=== PATIENT | male | born 1945 | race Caucasian/White ===

== ENCOUNTER 2020-07-14 10:38 | Inpatient (IN) | payer MEDICARE ==
[~2020-07-14] VITALS: Ht 182.9 cm; Wt 92.5 kg
[2020-07-14] MEDS ORDERED: KETOROLAC TROMETHAMINE INJ 60 MG/2 ML VIAL IM ONE (11:00)
--- NOTE | 2020-07-14 11:00 | NUR ---
PT BIBA FROM HOME C/O LLE PAIN AND TESTICULAR PAIN X 3 DAYS. PT AAOX4, VSS, RESPIRATIONS EVEN AND UNLABORED ON RA W/ NAD NOTED. PT CONNECTED TO THE MONITOR AND POX
--- NOTE | 2020-07-14 11:00 | NUR ---
Chelita you in [facility] - 07/14/20 at 1215 by CHRIS RELIGIOUS HEALER JANETT
[2020-07-14] MEDS ORDERED: KETOROLAC TROMETHAMINE INJ 30 MG/ML VIAL ONE (11:01)
--- NOTE | 2020-07-14 11:03 | NUR ---
ASSUMED CARE FOR THIS PT
--- NOTE | 2020-07-14 11:24 | NUR ---
ATTEMPTED TO CALL FOR FILLING MACHINE TENDER. LEFT VOICEMAIL
--- NOTE | 2020-07-14 11:30 | NUR ---
SECRETARY RECEPTIONIST PAGED
--- NOTE | 2020-07-14 11:30 | NUR ---
ATTEMPTED TO CALL BACK AGAIN. LEFT A VOICEMAIL
--- NOTE | 2020-07-14 12:17 | NUR ---
OPAL, CRISIS TEAM LOSS PREVENTION INVESTIGATOR PAGED
--- NOTE | 2020-07-14 12:38 | NUR ---
OPAL, CRISIS TEAM PARKS RECREATION DIRECTOR AT BEDSIDE
--- NOTE | 2020-07-14 12:53 | NUR ---
URINE COLLECTED AND SENT TO LAB
--- NOTE | 2020-07-14 12:53 | NUR ---
This SW filed an Adult Protective Service report reference number [id number] for neglect of family and self-neglect. Patient reports that he cannot take care of himself and his who is disabled. Patient stated that he cannot walk well and that his is deaf. Patient reported that when his falls down, he is not strong enough to pick her up. Patient cannot recall daughter or son's contact information stating "my knows but she's deaf". This SW to remain available for all needs regarding this patient.
--- NOTE | 2020-07-14 12:53 | NUR ---
EKG AT BEDSIDE
[2020-07-14 13:04] LABS: BASOPHILS % (AUTO) 0.7 % (0.0-2.0); EOSINOPHILS % (AUTO) 3.6 % (0.0-6.0); HEMATOCRIT 46 % (39-51); HEMOGLOBIN 15.1 g/dL (13.5-17.5); LYMPHOCYTES # (AUTO) 1.8 /CMM (0.8-4.8); LYMPHOCYTES % (AUTO) 26.3 % (20.0-44.0); MEAN CORPUSCULAR HGB CONC 33 g/dl (31.0-36.0); MEAN CORPUSCULAR VOLUME 96 fL (80-96); MONOCYTES # (AUTO) 0.5 /CMM (0.1-1.30); MONOCYTES % (AUTO) 7.6 % (2.0-12.0); NEUTROPHILS # (AUTO) 4.1 /CMM (1.8-8.9); NEUTROPHILS % (AUTO) 61.8 % (43.0-81.0); PLATELET COUNT (AUTO) 240 /CMM (150-450); RED BLOOD CELL COUNT(AUTO) 4.84 MIL/uL (4.5-6.0); WHITE BLOOD COUNT (AUTO) 6.7 K/uL (4.3-11.0)
--- NOTE | 2020-07-14 13:09 | NUR ---
CALLED LAB FOR COVID SWAB
[2020-07-14 13:10] LABS: APPEARANCE,URINE Clear (CLEAR); BILIRUBIN,URINE Negative (NEGATIVE); BLOOD, URINE Negative Ery/uL (NEGATIVE); COLOR,URINE Yellow (YELLOW); KETONES,URINE Negative (NEGATIVE); LEUKOCYTE ESTERASE ,URINE Negative (NEGATIVE); NITRITE, URINE Negative (NEGATIVE); PH,URINE 6.5 (5.0-8.0); PROTEIN,URINE Negative (NEGATIVE); UGLUCOSE 100 MG/DL mg/dL (NEGATIVE); UROBILINOGEN,URINE 0.2 EU/dL (0.2)
--- NOTE | 2020-07-14 13:10 | NUR ---
Chelita you in [facility] - 07/14/20 at 1315 by CHRIS LAB CALLED FOR TIM SWAB
[2020-07-14 13:18] LABS: ALANINE AMINOTRANSFERASE 40 U/L (12-78); ALBUMIN 3.5 g/dL (3.4-5.0); ALCOHOL, BLOOD < 3 mg/dL (0-0); ALKALINE PHOSPHATASE 71 U/L (46-116); ASPARTATE AMINOTRANSFERASE 16 U/L (15-37); BILIRUBIN,DIRECT 0.1 mg/dL (0.0-0.2); BILIRUBIN,TOTAL 0.6 mg/dL (0.2-1.0); CALCIUM, SERUM 9.2 mg/dL (8.5-10.1); CARBON DIOXIDE 28 mmol/L (21-32); CHLORIDE 103 mmol/L (98-107); CREATININE 1.1 mg/dL (0.6-1.3); GLUCOSE 172 mg/dL (74-106); POTASSIUM 4.5 mmol/L (3.5-5.1); SODIUM SERUM 138 mmol/L (136-145); TOTAL PROTEIN, SERUM 7.1 g/dL (6.4-8.2); UREA NITROGEN, BLOOD 13 mg/dL (7-18)
[2020-07-14 13:20] LABS: SALICYLATE 0.3 mg/dL (2.8-20.0)
[2020-07-14 13:21] LABS: ACETAMINOPHEN 0 ug/ml (10-30)
--- NOTE | 2020-07-14 13:38 | NUR ---
COVID SWAB COLLECTED AND SENT TO LAB
--- NOTE | 2020-07-14 14:08 | NUR ---
MOVE SHEET TURNED IN AND CALLED FOR GPS BED.
--- NOTE | 2020-07-14 14:36 | NUR ---
GOT BED 216-B
--- NOTE | 2020-07-14 15:14 | NUR ---
COVID NEGATIVE PER LAB
--- NOTE | 2020-07-14 15:19 | NUR ---
REPORT GIVEN TO KAYLEEN ESCOBEDO FOR SONDRA
--- NOTE | 2020-07-14 15:51 | NUR ---
PT TRANSFERRED TO ROOM IN STABLE CONDITION
--- NOTE | 2020-07-14 16:18 | NUR ---
GPS RN Note: Admission Patient is a 75 year old male brought in to the hospital by paramedics from home. Patient is admitted on a 5150 hold for gravely disabled. Patient came in to the ER c/o severe pain in LLE. According to the hold patient was tearful and reporting hopelessness and stating that he could not take care of himself. Patient admitted to a history of depression and PTSD. According to the hold the patient was groaning and stating repeatedly, "I can't take care of myself. I can't sleep and I can't shower, cook and I can't deal with the problems in my life". Hospital was unable to contact family and SW filed APS report for neglect and self-neglect. Upon face to face assessment patient is groaning, tearful, stating he is in pain. Patient is saying "I can hear my calling for me". When asked directly if he is suicidal, patient said "yes". Patient presents as worried and anxious. Patient states he is nonambulatory. PT eval ordered. Patient came in with no belongings. Patient is in bed in low position with 2 side rails up for safety and bed alarm on. MD informed of admit with admitting orders given. Patient's rights handbook given and guide to prescriptions.
[2020-07-14] MEDS ORDERED: MAGNESIUM HYDROXIDE 30 ML UDC PO PRN (16:30)
[2020-07-14] MEDS ORDERED: LORAZEPAM 0.5 MG TABLET PO PRN (16:30)
[2020-07-14] MEDS ORDERED: MAG HYDROX/AL HYDROX/SIMETH 30 ML UDC PO PRN (16:30)
[2020-07-14] MEDS ORDERED: BLOOD SUGAR DIAGNOSTIC 1 EACH STRIP IN ONE (16:30)
[2020-07-14] MEDS ORDERED: CARI350T PO (17:43)
[2020-07-14] MEDS ORDERED: HYDR-4384 PO (17:43)
--- NOTE | 2020-07-14 18:54 | NUR ---
GPS RN Note: Med Recon Dr Mirza notified for med recon
--- NOTE | 2020-07-14 19:48 | NUR ---
GPS RN NOTE, PATIENT HAS A COMPLAINT OF LOWER BACK PAIN AND BILATERAL LOWER EXTREMITY PAIN AT 6 OUT 10 ON THE PAIN SCALE REQUESTING MORPHINE AT THIS TIME. PATIENT VITAL SIGNS ARE STABLE. PAGED [facility] AND INFORMED DANIELLE BACH DNP OF MY FINDINGS. DANIELLE BACH DNP ORDERED TO GIVE MORPHINE SULFATE 2MG IM ONCE ONE TIME. PATIENT HAS A ALLERGIES TO CODEINE BUT DANIELLE BACH DNP SAID TO OVERRIDE THE ALLERGIES AND GIVE MORPHINE SULFATE. ALL ORDERS NOTED AND CARRIED OUT. WILL CONTINUE TO MONITOR THIS PATIENT.
[2020-07-14 19:59] VITALS: BP 117/82
[2020-07-14] MEDS ORDERED: MORPHINE SULFATE INJ 2 MG/ML DISP.SYRIN IM ONE (20:00)
[2020-07-14] MEDS ORDERED: MORPHINE SULFATE INJ 2 MG/ML DISP.SYRIN ONE (20:22)
--- NOTE | 2020-07-14 20:39 | NUR ---
GPS RN NOTES: PATIENT COMPLAINED OF PAIN ON BOTH LOWER EXTREMITIES AT THE START OF THE SHIFT. VEGETABLE PREPARER NENA CALLED DANIELLE BACH NP OF THE [facility] FOR ANY MEDICATION ORDERS. HE GAVE ORDERS FOR MORPHINE IM INJECTION. PATIENT HAS ALLERGIES TO CODEINE, SO VEGETABLE PREPARER AND LEAD HOUSEKEEPER ASKED PATIENT IF HE IS OKAY TAKING MORPHINE PER PATIENT "THAT IS WHAT I NEED, PLEASE" LEAD HOUSEKEEPER WAS ABLE TO OBTAIN THE MEDICATION FROM [facility] SINCE WE DON'T STOCK THE SAID MEDICATION HERE AT GPS. PHARMACY DID DELIVER THE MEDICATION TO THE UNIT, THEY WERE AWARE THAT LEAD HOUSEKEEPER WAS ABLE TO OBTAIN THE MEDICATION FROM [facility].
--- NOTE | 2020-07-14 22:33 | NUR ---
GPS RN NOTE RECEIVED REPORT ON PT FROM FELLOW NURSE, STATED PT WAS, CALM, COMPLIANT, RESTLESS DUE TO PAIN 9/10 ON BOTH LOWER EXTREMITIES, NURSE ADMINISTERED MORPHINE 2MG IM @ 2032, WHEN CHECKING ON PT HE WAS ASLEEP, NON LABORED BREATHING. ENVIRONMENTAL CHECK WAS DONE BED IN LOCKED AND LOWEST POSITION, BED ALARM ON, WILL CONTINUE TO MONITOR Q15MIN FOR SAFETY AND BEHAVIOR.
--- NOTE | 2020-07-14 23:00 | NUR ---
GPS RN NOTE, PATIENT NEEDS A MEDICATION RECONCILIATION. PAGED [facility] AND INFORMED DANIELLE KNAPP DNP OF MY FINDINGS. DANIELLE KNAPP DNP STATED, " I WILL REVIEW THE MEDICATION SOON I CAN ". WILL CONTINUE TO MONITOR THIS PATIENT WITH THE HELP OF FATIMAH.
--- NOTE | 2020-07-15 05:54 | NUR ---
GPS RN NOTE: MED RECON & PAIN SPOKE TO DR. BACH REGARDING MED RECON AND STATED "PASS IT ON TO MORNING SHIFT". WILL CONTINUE TO MONITOR Q15 MIN FOR SAFETY AND BEHAVIOR.
[2020-07-15] MEDS ORDERED: GABAPENTIN 300 MG CAPSULE PO SCH (06:00)
--- NOTE | 2020-07-15 06:02 | NUR ---
GPS RN NOTE: PAIN & SKIN ASSESSMENT REFUSAL INFORMED THE DR THAT THE PT WAS HAVING LOWER EXTREMITY PAIN, THE DR ORDERED GABAPENTIN 300 MG PO ONCE, ADMINISTERED @0558. ASKED PT IF WE WERE ABLE TO DO A SKIN ASSESSMENT HE STATED "NO M IN TOO MUCH PAIN I DONT WANT IT DONE". WILL CONTINUE TO MONITOR Q15 MIN FOR SAFETY AND BEHAVIOR
[2020-07-15 06:33] LABS: CHOLESTEROL 268 mg/dL (<200); HDL CHOLESTEROL 35 mg/dL (40-60); LDL 198 mg/dL (0-99); TRIGLYCERIDES 263 mg/dL (30-150)
[2020-07-15 06:35] LABS: ALBUMIN 3.2 g/dL (3.4-5.0); BILIRUBIN,TOTAL 0.5 mg/dL (0.2-1.0); CALCIUM, SERUM 8.9 mg/dL (8.5-10.1); CREATININE 1.1 mg/dL (0.6-1.3); POTASSIUM 4.3 mmol/L (3.5-5.1)
[2020-07-15 08:00] VITALS: BP 151/87
--- NOTE | 2020-07-15 08:02 | NUR ---
RN NOTES PATIENT RECEIVED IN ROOM SLEEPING. AWAKEN BY NAME AND LIGHT TOUCH, ALERT AND ORIENTED X 3. ON ROOM AIR WITH NO SIGNS OF RESPIRATORY DISTRESS NOTED, WITH NON-LABORED BREATHING. PATIENT PRESENTS WITH NO PAIN OR DISCOMFORT AT THIS TIME. SAFETY PRECAUTIONS IMPLEMENTED WITH BED LOCKED, BED IN THE LOWEST POSITION, BILATERAL SIDE RAILS UP, AND WILL CONTINUE TO MONITOR PATIENT.
--- NOTE | 2020-07-15 11:15 | NUR ---
RN NOTES INFORMED AND DR. SALAZAR MADE AWARE ABOUT MEDICATION RECON. AT THIS TIME WILL CONTINUE TO MONITOR PATIENT.
[2020-07-15] MEDS: ACETAMINOPHEN 325 MG TABLET PO PRN (13:32)
--- NOTE | 2020-07-15 13:32 | NUR ---
RN NOTES PATIENT COMPLAINING OF LEG PAIN AND GROIN PAIN, ADMINISTERED PRN TYLENOL ORDERED, PO 650mg, PROVIDED COMFORT MEASURES TO PATIENT AND WILL CONTINUE TO MONITOR PATIENT.
--- NOTE | 2020-07-15 14:25 | NUR ---
Family Contact: SW called the pts , Gilbert ([phone]), but the line was disconnected so the SW was unable to make contact at this time.
--- NOTE | 2020-07-15 14:35 | NUR ---
Family Contact: SW called an alternative number for the , Ham ([phone]), and left a voicemail stating that the SW would like to discuss pts treatment.
--- NOTE | 2020-07-15 14:39 | NUR ---
Apartment Contact: SW called [facility] ([phone]) and spoke to CJ about receiving the phone number for the pts daughter, Lindsey, who lives in the same complex. He stated that he is off site and once he is back he can provide that information. MIGUELANGEL stated that she would call back around 4.
[2020-07-15] MEDS ORDERED: CARISOPRODOL 350 MG TABLET PO PRN (15:30)
--- NOTE | 2020-07-15 15:41 | NUR ---
Initial Discharge Plan: Pt currently resides in his home located at [address] [place] [address]; ([phone]). Per pt, he would like to return to his home. SW will work with the pt and the MD regarding appropriate discharge planning. SW will form a safe and proper discharge.
--- NOTE | 2020-07-15 15:42 | NUR ---
RN NOTES PAGED DR SALAZAR FOR PAIN MEDICATION TO VERIFY NORCO DUE TO PHARMACY CALLING STATING PATIENT ALLERGIC TO CODEINE. ALSO PAGED FOR SLIDING SCALE DUE TO PLAN OF CARE NOTES BUT NO ORDERS IN PLACE. AWAITING FOR RESPONSE AT THIS TIME. WILL CONTINUE TO MONITOR PATIENT.
[2020-07-15 16:00] VITALS: BP 122/64
--- NOTE | 2020-07-15 16:27 | NUR ---
Family Contact: MIGUELANGEL called Yue ([phone]), pts daughter, and left a voicemail stating that she would like to speak to her regarding the pts treatment plan.
[2020-07-15] MEDS: HYDROCODONE/APAP 5/325MG TABLET PO PRN ×2 (16:45→23:30)
--- NOTE | 2020-07-15 17:45 | NUR ---
RN NOTES PATIENT MRSA RESULT CAME BACK POSITIVE. INFORMED DR. SAM. GANT MADE AWARE AND ORDERED PLACE FOR BACTROBAN OINT 2% BID Q12H. WILL CARRY OUT ORDERS, PLACE PATIENT IN CONTACT PRECAUTIONS AND CONTINUE TO MONITOR PATIENT.
[2020-07-15 20:00] VITALS: BP 150/80
[2020-07-15 20:11] VITALS: BP 150/80
[2020-07-15] MEDS: MUPIROCIN OINT 2% 22 GM TUBE NS SCH (21:17)
[2020-07-15] MEDS: ESCITALOPRAM OXALATE (10 MG) 10 MG TABLET PO SCH (21:51)
[2020-07-15 23:25] VITALS: BP 141/79
--- NOTE | 2020-07-15 23:31 | NUR ---
GPS PRN NOTE: PAIN PATIENT C/O RIGHT & LEFT LOWER EXTREMITY PAIN 05/20, NORCO 5/325 MG 1 TAB PO GIVEN, PATIENT STATED THAT NORCO WORKS FOR HIM & RELIEVES THE PAIN. WILL MONITOR CLOSELY FOR EFFECTIVENESS OF NORCO. V/S STABLE.
--- NOTE | 2020-07-16 00:15 | NUR ---
GPS RN NOTE PATIENT WAS NOTED WITH SMALL MULTIPLE SCRATCHES/ABRASIONS (DRYING) TO HIS RIGHT & LEFT LEG, BUT UNABLE TO ASSESS FULL BODY FOR SKIN ASSESSMENT DUE TO C/O PAIN & PATIENT REFUSED TO BE ASSESSED. PATIENT WAS RESTLESS & EASILY AGITATED DUE TO RIGHT & LEFT LEG PAIN. REFUSED PICTURES TO BE TAKEN WELL. PAIN MEDICINE WAS GIVEN & WILL CONTINUE TO MONITOR FOR EFFECTIVENESS OF THE PAIN MEDICINE. WILL KEEP THE PATIENT COMFORTABLE & SAFE.
[2020-07-16] MEDS: HYDROCODONE/APAP 5/325MG TABLET PO PRN ×3 (05:31→18:34)
--- NOTE | 2020-07-16 05:31 | NUR ---
GPS PRN NOTE: PAIN PATIENT C/O LEFT LEG PAIN 05/20, NORCO 5/325 MG 1 TAB PO GIVEN, PATIENT STATED THAT NORCO HELPED LAST TIME IT WAS GIVEN 6 HOURS AGO & RELIEVED THE PAIN. WILL MONITOR CLOSELY FOR EFFECTIVENESS OF NORCO. V/S STABLE 132/81, 78, 20, 97.5, 96%.
[2020-07-16 08:00] VITALS: BP 155/93
[2020-07-16] MEDS: MUPIROCIN OINT 2% 22 GM TUBE NS SCH ×2 (09:06→21:00)
--- NOTE | 2020-07-16 11:58 | NUR ---
RN NOTE: PAIN PT C/O 910 BILAT LOWER EXTREMITY PAIN AND SCROTAL PAIN. MEDICATED WITH NORCO PO PRN.
--- NOTE | 2020-07-16 13:00 | NUR ---
RN NOTE: PT REPORTS 2/10 BILAT LOWER EXTREMITY PAIN AFTER NORCO ADMINISTRATION
[2020-07-16 16:00] VITALS: BP 135/64
--- NOTE | 2020-07-16 18:35 | NUR ---
RN NOTE: PAIN PT C/O 9/10 BILAT LOWER LEG AND SCROTAL PAIN. MEDICATED WITH NORCO PO PRN
[2020-07-16 19:59] VITALS: BP 97/56
[2020-07-16] MEDS: ESCITALOPRAM OXALATE (10 MG) 10 MG TABLET PO SCH (21:31)
[2020-07-17] MEDS: HYDROCODONE/APAP 5/325MG TABLET PO PRN ×4 (03:15→22:57)
--- NOTE | 2020-07-17 03:19 | NUR ---
GPS RN NOTE: PAIN PT. C.O OF 10/10 PAIN IN BILATERAL LOWER LEG AND SCROTAL PAIN. ADMINISTERED NORCO5-325 PO PRN ORDERED. WILL CONTINUE TO MONITOR FOR SAFETY AND BEHAVIOR.
[2020-07-17 08:00] VITALS: BP 97/64
[2020-07-17] MEDS: MUPIROCIN OINT 2% 22 GM TUBE NS SCH ×2 (09:53→21:22)
--- NOTE | 2020-07-17 10:40 | NUR ---
RN NOTE: PAIN PT C/O 9/10 BILAT LOWER EXTREMITY AND SCROTAL PAIN. MEDICATED WITH NORCO PO PRN.
[2020-07-17] MEDS ORDERED: DEXTROSE 50%-WATER 50 ML DISP.SYRIN IV PRN (13:30)
[2020-07-17 16:00] VITALS: BP 100/59
[2020-07-17] MEDS: BLOOD SUGAR DIAGNOSTIC 1 EACH STRIP IN SCH ×2 (17:05→21:22)
[2020-07-17] MEDS ORDERED: BLOOD SUGAR DIAGNOSTIC 1 EACH STRIP IN SCH (17:30)
[2020-07-17] MEDS: METFORMIN 500 MG TABLET PO SCH (17:45)
--- NOTE | 2020-07-17 17:45 | NUR ---
RN NOTE: PAIN PT C/O 10 BILAT LOWER EXTREMITIY PAIN AND SCROTAL PAIN. MEDICATED WITH NORCO PO PRN.
[2020-07-17] MEDS: INSULIN REGULAR, HUMAN 100 UNIT/ML 3 ML VIAL SQ PRN ×2 (17:47→21:33)
[2020-07-17 20:00] VITALS: BP 156/69
[2020-07-17] MEDS: ESCITALOPRAM OXALATE (10 MG) 10 MG TABLET PO SCH (21:29)
--- NOTE | 2020-07-17 21:29 | NUR ---
GPS RN NOTE: MEDICATION REFUSAL PT. REFUSED SCHEDULED 2200 MEDICATION LEXAPRO 5 MG PO. STATES " I HAVE NIGHTMARES AFTER TAKING THAT MEDICATION." EXPLAINED RISKS AND BENEFITS. OFFERED 3 TIMES AND PT STILL REFUSED. WILL CONTINUE TO MONITOR FOR SAFETY AND BEHAVIOR
[2020-07-18] MEDS: ACETAMINOPHEN 325 MG TABLET PO PRN (02:20)
--- NOTE | 2020-07-18 02:20 | NUR ---
GPS RN NOTE: PAIN PT. C/O OF SCROTAL PAIN. ADMINISTERED TYLENOL 650 MG PO PRN ORDERED. WILL CONTINUE TO MONITOR OFR SAFETY AND BEHAVIOR.
[2020-07-18] MEDS: BLOOD SUGAR DIAGNOSTIC 1 EACH STRIP IN SCH ×4 (07:06→21:10)
[2020-07-18] MEDS: INSULIN REGULAR, HUMAN 100 UNIT/ML 3 ML VIAL SQ PRN ×4 (07:09→21:13)
[2020-07-18 08:00] VITALS: BP 105/55
[2020-07-18] MEDS: MUPIROCIN OINT 2% 22 GM TUBE NS SCH ×2 (08:43→21:10)
[2020-07-18] MEDS: METFORMIN 500 MG TABLET PO SCH ×2 (08:47→17:17)
[2020-07-18] MEDS: ASPIRIN 81 MG TAB.CHEW PO SCH (08:47)
[2020-07-18] MEDS: HYDROCODONE/APAP 5/325MG TABLET PO PRN ×3 (08:48→23:47)
--- NOTE | 2020-07-18 08:49 | NUR ---
RN NOTE: PAIN PT C/O 9/10 BILAT LOWER EXTREMITY PAIN AND SCROTAL PAIN. MEDICATED WITH NORCO PO PRN
[2020-07-18] MEDS: METOPROLOL TARTRATE 25 MG TABLET PO SCH (08:50)
--- NOTE | 2020-07-18 08:50 | NUR ---
RN NOTE: AM DOSE OF LOPRESSOR HELD DUE TO DECREASED BP. PT IS CURRENTLY ASYMPTOMATIC
[2020-07-18 16:00] VITALS: BP 100/57
--- NOTE | 2020-07-18 17:39 | NUR ---
RN NOTE: PAIN PT C/O /10 BILAT LOWER EXTREMITY PAIN AND SCROTAL PAIN. REQUESTING NORCO. NORCO PO PRN ADMINISTERED.
[2020-07-18 20:15] VITALS: BP 110/59
[2020-07-18] MEDS: TEMAZEPAM 7.5 MG CAPSULE PO PRN (21:19)
[2020-07-18] MEDS: ESCITALOPRAM OXALATE (10 MG) 10 MG TABLET PO SCH (22:00)
[2020-07-19] MEDS: HYDROCODONE/APAP 5/325MG TABLET PO PRN ×3 (05:27→20:00)
[2020-07-19] MEDS: INSULIN REGULAR, HUMAN 100 UNIT/ML 3 ML VIAL SQ PRN ×3 (07:19→18:02)
[2020-07-19 08:07] VITALS: BP 95/67
[2020-07-19] MEDS: METOPROLOL TARTRATE 25 MG TABLET PO SCH (08:34)
[2020-07-19] MEDS: LISINOPRIL (20MG) 20 MG TABLET PO SCH (08:34)
[2020-07-19] MEDS: BLOOD SUGAR DIAGNOSTIC 1 EACH STRIP IN SCH ×4 (08:35→21:36)
[2020-07-19] MEDS: ASPIRIN 81 MG TAB.CHEW PO SCH (09:40)
[2020-07-19] MEDS: METFORMIN 500 MG TABLET PO SCH ×2 (09:40→17:34)
[2020-07-19] MEDS: ESCITALOPRAM OXALATE (10 MG) 10 MG TABLET PO SCH (09:40)
--- NOTE | 2020-07-19 13:21 | NUR ---
GIVEN NORCO FOR LEG PAIN.
--- NOTE | 2020-07-19 13:40 | NUR ---
Family Contact: MIGUELANGEL called the pts son, Rasta Allan ([phone]), and informed him that the pt is being discharged back home the following day. He stated that he will come and sisal picker the pt around 1pm or will make sure another family member will sisal picker the pt at that time.
--- NOTE | 2020-07-19 14:51 | NUR ---
yolanda irvin alerted to pain in legs,babita.arterial and venous studies being done.
[2020-07-19 15:24] LABS: BASOPHILS # (AUTO) 0.1 /CMM (0.0-0.2); BASOPHILS % (AUTO) 1.2 % (0.0-2.0); EOSINOPHILS % (AUTO) 3.6 % (0.0-6.0); HEMATOCRIT 45 % (39-51); LYMPHOCYTES # (AUTO) 1.6 /CMM (0.8-4.8); LYMPHOCYTES % (AUTO) 24.5 % (20.0-44.0); MEAN CORPUSCULAR HGB CONC 33 g/dl (31.0-36.0); MEAN CORPUSCULAR VOLUME 94 fL (80-96); MONOCYTES # (AUTO) 0.6 /CMM (0.1-1.30); MONOCYTES % (AUTO) 9.1 % (2.0-12.0); NEUTROPHILS # (AUTO) 4.1 /CMM (1.8-8.9); NEUTROPHILS % (AUTO) 61.6 % (43.0-81.0); PLATELET COUNT (AUTO) 242 /CMM (150-450); RED BLOOD CELL COUNT(AUTO) 4.82 MIL/uL (4.5-6.0); WHITE BLOOD COUNT (AUTO) 6.6 K/uL (4.3-11.0)
[2020-07-19 15:38] LABS: CALCIUM, SERUM 8.9 mg/dL (8.5-10.1); POTASSIUM 4.3 mmol/L (3.5-5.1)
[2020-07-19 16:00] VITALS: BP 109/61
[2020-07-19] MEDS: MUPIROCIN OINT 2% 22 GM TUBE NS SCH ×2 (17:34→21:28)
--- NOTE | 2020-07-19 18:13 | NUR ---
given soma for rectal discomfort after having bm.
--- NOTE | 2020-07-19 20:06 | NUR ---
GPS RN NOTE: PAIN PT C/O OF LEG AND GROIN PAIN 06/20 REQUESTED NORCO, VITAL SIGNS STABLE, NON LABORED BREATHING NORMAL CHEST RECOIL AND EXPANSION. ADMIN PRN NORCO @ 2000, WILL REASSESS AND CONTINUE TO MONITOR Q15MIN FOR SAFETY AND BEHAVIOR.
[2020-07-20] MEDS: HYDROCODONE/APAP 10/325MG TABLET PO PRN ×2 (01:55→11:58)
--- NOTE | 2020-07-20 02:00 | NUR ---
GPS RN NOTE: PAIN PT WAS SHOUTING, YELLING, SCREAMING THAT HE WAS IN PAIN, HE STATED "THIS IS TERRIBLE, ITS 07/21 I CARE BARE THIS I NEED MY NORCO" PT RECEIVED PRN 1 NORCO 10-325 TABLET PRN TABLET @ 0155. WILL REASSESS AND CONTINUE TO MONITOR Q15 MIN FOR SAFETY AND BEHAVIOR.
[2020-07-20 03:29] VITALS: BP 101/57
[2020-07-20] MEDS: BLOOD SUGAR DIAGNOSTIC 1 EACH STRIP IN SCH ×4 (06:59→22:00)
[2020-07-20 08:00] VITALS: BP 105/52
--- NOTE | 2020-07-20 08:51 | NUR ---
Family Contact: SW called the pts son, Rasta Allan ([phone]), after hearing from the nursing staff that the family cannot flower buncher or picker the pt today. Pts son stated that is mistaken and that he will be arriving around 1pm and that if it is not him it will be another family member.
[2020-07-20] MEDS: LISINOPRIL (20MG) 20 MG TABLET PO SCH (09:00)
[2020-07-20] MEDS: METOPROLOL TARTRATE 25 MG TABLET PO SCH (09:00)
[2020-07-20] MEDS: ESCITALOPRAM OXALATE (10 MG) 10 MG TABLET PO SCH (09:44)
[2020-07-20] MEDS: METFORMIN 500 MG TABLET PO SCH ×2 (09:44→17:51)
[2020-07-20] MEDS: ASPIRIN 81 MG TAB.CHEW PO SCH (09:44)
[2020-07-20] MEDS: MUPIROCIN OINT 2% 22 GM TUBE NS SCH ×2 (10:24→21:07)
--- NOTE | 2020-07-20 10:25 | NUR ---
Family Contact: SW called the pts son, Rasta Allan ([phone]), and informed him that the MD put in a pain consult for the pt and that the SW is unsure of what time that will be done so she asked if the family can orange picker machine operator the pt later in the day. Pts son stated that he will arrive around 5pm.
--- NOTE | 2020-07-20 11:23 | NUR ---
RECEIVED CALL FROM 'S VENDETTE.DR. CARRERO TO SEE PT. TOMORROW.DR. VALADEZ AND SOC.SERVICE INFORMED.THEREFORE DISCHARGE TO BE HELD TILL VISIT FROM DR. CARRERO.
--- NOTE | 2020-07-20 11:58 | NUR ---
Family Contact: SW called the pts son, Rasta Allan ([phone]), and informed him that the pts discharge has been postponed and that she will keep him informed on when the pt will be discharged.
--- NOTE | 2020-07-20 11:59 | NUR ---
medicated with norco 10 for groin and leg pain.
[2020-07-20] MEDS: INSULIN REGULAR, HUMAN 100 UNIT/ML 3 ML VIAL SQ PRN (12:40)
--- NOTE | 2020-07-20 15:53 | NUR ---
just taken to x-ray dept. to have ct of lumbar spine.
[2020-07-20 16:00] VITALS: BP 143/82
[2020-07-20 20:00] VITALS: BP 143/74
[2020-07-20 20:02] VITALS: BP 143/74
[2020-07-20] MEDS: TEMAZEPAM 7.5 MG CAPSULE PO PRN (21:56)
--- NOTE | 2020-07-20 21:56 | NUR ---
GPS RN NOTE: INSOMNIA PATIENT STATED THAT HE IS UNABLE TO SLEEP & REQUESTED TO TAKE SLEEPING MEDICINE. PRN RESTORIL 7.5 MG 1 CAP PO GIVEN. WILL CONTINUE TO MONITOR.
--- NOTE | 2020-07-20 22:00 | NUR ---
GPS RN NOTE: NO C/O PAIN ASSESSED THE PATIENT FOR HAVING ANY PAIN OR NEED PAIN MEDICINE, ASKED MULTIPLE TIMES, BUT PATIENT DENIED OF HAVING ANY PAIN AT THIS TIME. INFORMED PATIENT TO CALL FOR HELP IF NEEDED & PT. VERBALIZED UNDERSTANDING.
[2020-07-21] MEDS: HYDROCODONE/APAP 10/325MG TABLET PO PRN (01:01)
--- NOTE | 2020-07-21 01:02 | NUR ---
GPS RN NOTE: PAIN PATIENT C/O PAIN IN GROIN & LEGS 06/20, REQUESTED TO TAKE NORCO, PRN NORCO 10-325 MG 1 TAB PO GIVEN. WILL REASSESS FOR EFFECTIVENESS.
[2020-07-21 08:00] VITALS: BP 123/68
[2020-07-21] MEDS: BLOOD SUGAR DIAGNOSTIC 1 EACH STRIP IN SCH ×4 (08:12→21:14)
[2020-07-21] MEDS: MUPIROCIN OINT 2% 22 GM TUBE NS SCH ×2 (08:50→21:14)
[2020-07-21] MEDS: METFORMIN 500 MG TABLET PO SCH ×2 (08:50→17:30)
[2020-07-21] MEDS: ASPIRIN 81 MG TAB.CHEW PO SCH (08:50)
[2020-07-21] MEDS: LISINOPRIL (20MG) 20 MG TABLET PO SCH (08:51)
[2020-07-21] MEDS: METOPROLOL TARTRATE 25 MG TABLET PO SCH (08:51)
[2020-07-21] MEDS: ESCITALOPRAM OXALATE (10 MG) 10 MG TABLET PO SCH (08:51)
[2020-07-21] MEDS: INSULIN REGULAR, HUMAN 100 UNIT/ML 3 ML VIAL SQ PRN ×3 (08:59→17:45)
--- NOTE | 2020-07-21 12:30 | NUR ---
GPS/RN-NOTES PATIENT C/O INDIGESTION AND REQUESTING MAALOX. MAALOX 30ML GIVEN PRN ORDER. WILL CONT. MONITORING.
--- NOTE | 2020-07-21 13:30 | NUR ---
GPS/RN-NOTES PATIENT STATED" MAALOX HELPS ON MY INDIGESTION".
--- NOTE | 2020-07-21 14:22 | NUR ---
Family Contact: Pts son, Rasta Allan ([phone]), called the SW and the SW informed him that she does not have any information regarding the pts discharge at this time and that she will call him and let him know about any updates as soon as it happens.
[2020-07-21] MEDS: GABAPENTIN 100 MG CAPSULE PO SCH ×2 (15:22→21:14)
--- NOTE | 2020-07-21 15:56 | NUR ---
Family Contact: MIGUELANGEL called the pts son, Rasta Allan ([phone]), and left a voicemail stating that the pt was evaluated for his pain and that the MD would like to discharge either the next day or Saturday depending on the pt. MIGUELANGEL asked for a call back.
[2020-07-21 16:00] VITALS: BP 100/57
[2020-07-21] MEDS ORDERED: LIDOCAINE 5% (PATCH) 1 EA PATCH TP SCH (16:00)
[2020-07-21] MEDS: ACETAMINOPHEN 325 MG TABLET PO SCH (17:31)
[2020-07-21] MEDS: CELECOXIB 100 MG CAPSULE PO SCH (17:32)
[2020-07-21 20:14] VITALS: BP 114/58
[2020-07-21] MEDS: TEMAZEPAM 7.5 MG CAPSULE PO PRN (21:20)
[2020-07-22] MEDS: BLOOD SUGAR DIAGNOSTIC 1 EACH STRIP IN SCH ×2 (07:33→11:44)
[2020-07-22 08:00] VITALS: BP 111/60
[2020-07-22] MEDS: ESCITALOPRAM OXALATE (10 MG) 10 MG TABLET PO SCH (08:11)
[2020-07-22] MEDS: METFORMIN 500 MG TABLET PO SCH (08:11)
[2020-07-22] MEDS: GABAPENTIN 100 MG CAPSULE PO SCH ×2 (08:11→12:00)
[2020-07-22] MEDS: CELECOXIB 100 MG CAPSULE PO SCH (08:11)
[2020-07-22] MEDS: ASPIRIN 81 MG TAB.CHEW PO SCH (08:11)
[2020-07-22] MEDS: MUPIROCIN OINT 2% 22 GM TUBE NS SCH (08:12)
[2020-07-22 08:13] VITALS: BP 111/60
[2020-07-22] MEDS: LISINOPRIL (20MG) 20 MG TABLET PO SCH (08:13)
[2020-07-22] MEDS: METOPROLOL TARTRATE 25 MG TABLET PO SCH (08:13)
[2020-07-22] MEDS: ACETAMINOPHEN 325 MG TABLET PO SCH ×2 (08:19)
--- NOTE | 2020-07-22 08:20 | NUR ---
DR. VALADEZ GAVE AN ORDER TO D/C HOLD AND D/C HOME AND TO FOLLOW UP WITH PSYCH AND MEDICAL DOCTORS. PSYCHIATRIST PROVIDED A PRESCRIPTION OF MED FOR 1 MONTH SUPPLY WITH NO REFILL.
--- NOTE | 2020-07-22 08:23 | NUR ---
Pain Management Appointment: SW called [facility] ([phone]) and made an appointment for the pt to see Dr. Coley for follow up on 07/26/20 at 1pm.
--- NOTE | 2020-07-22 09:00 | NUR ---
RN NOTE- PT IN BED CALM PASSIVE NO BEHAVIORAL ISSUES DENIES ALL NEEDS ATTENDED MED COMPLIANT
--- NOTE | 2020-07-22 09:48 | NUR ---
Family Contact: SW called the pts son, Rasta Allan ([phone]), and gave him the information for the pts pain management appointment and then asked about if the pt has a pharmacy that he goes to and was informed that he usually goes to [facility] in [facility].
--- NOTE | 2020-07-22 11:23 | NUR ---
CHARMAINE STEVENSON IN THE UNIT AND MADE AWARE THE DISCHARGE AND PROVIDE A PRESCRIPTIONS.
[2020-07-22] MEDS: INSULIN REGULAR, HUMAN 100 UNIT/ML 3 ML VIAL SQ PRN (11:51)
--- NOTE | 2020-07-22 12:27 | NUR ---
Family Contact: SW called the pts son, Rasta Allan ([phone]), and asked him to bring the pt some clothes as we could not find anything in his size from the donation closet.
--- NOTE | 2020-07-22 13:40 | NUR ---
LABORER AMMUNITION ASSEMBLY NOTE- PT DC AT THIS TIME INTO CARE OF FAMILY., DC INSTRUCTIONS REVIEWED W FAMILY AND PT AND VERBALIZED UNDERSTANDING RETURNED. VS STABLE. PT ALERT ORIENTED TO PERSON PLACE TIME PURPOSE. CALM INTERACTIVE DENIES SI HI AH VH. MED COMPLIANT. ID [id number] REMOVED. NO BELONGINGS. ESCORTED OFF UNIT BY THIS RN
--- NOTE | 2020-07-22 13:53 | NUR ---
Discharge Note: Pt was discharged to his home located at [address] [place] [address]; ([phone]). Pts son, Rasta ([phone]), picked up the pt around 1pm. Upon discharge, the pt appeared to be in a euthymic mood and presented with a calm affect. Pt appeared to be alert and oriented x4 (time, place, self and situation). Pt denied both suicidal and homicidal ideation as well as auditory and visual hallucinations. Pt was referred to a pain management doctor located at [facility] ([phone]) and an appointment was made for the pt to see Dr. Coley for follow up on 07/26/20 at 1pm. Pt and pts son were both notified about the appointment. Pt will continue to be under the care of psychiatrist, Dr. Hewitt, located at [address] , [place] [address]; and irrigation system installer, [facility], located at [address], [place] [address]; .
== END 2020-07-22 13:40 | disposition home or self-care (01) | DRG 885 ==
LOC: ER 10:41 → GPS 16:13
PROVIDERS: ADMIT Psychiatry & Neurology Psychiatry; ATTEND Nurse Practitioner Acute Care
DX: F33.2 Major depressive disorder, recurrent severe without psychotic features (principal); R45.851 Suicidal ideations; F29 Unspecified psychosis not due to a substance or known physiological condition; F41.9 Anxiety disorder, unspecified; I25.10 Atherosclerotic heart disease of native coronary artery without angina pectoris; I10 Essential (primary) hypertension; M48.061 Spinal stenosis, lumbar region without neurogenic claudication; M47.26 Other spondylosis with radiculopathy, lumbar region; E78.5 Hyperlipidemia, unspecified; E11.9 Type 2 diabetes mellitus without complications; Z98.61 Coronary angioplasty status; Z88.5 Allergy status to narcotic agent; Z88.8 Allergy status to other drugs, medicaments and biological substances; M54.30 Sciatica, unspecified side; N50.819 Testicular pain, unspecified; Z73.6 Limitation of activities due to disability; G89.29 Other chronic pain; R78.4 Finding of other drugs of addictive potential in blood
CPT/HCPCS: 36415; 72131-TC; 76870-TC; 80048-TC; 80053-TC; 80061-TC; 80076-TC; 80305; 81000-TC; 82962-TC; 83605-TC; 85025-TC; 87081-TC; 93970-TC; 97110-TC; 97116-TC; 97530-TC; C9803-CS; G0480; J1815; J1885; J2270

== ENCOUNTER 2021-05-28 08:50 | Inpatient (IN) | payer MEDICARE ==
[~2021-05-28] VITALS: Ht 172.7 cm; Wt 82.6 kg
[~2021-05-28 08:50] MED LIST: CARI350T PO; HYDR-4384 PO
--- NOTE | 2021-05-28 09:05 | NUR ---
Patient bibra from home, c/o chest pain/sob. on room air, breathing evenly and unlabored. Connected to the monitor and pulse ox. kept comfortable, will continue to monitor accordingly.
[2021-05-28 09:35] LABS: BASOPHILS % (AUTO) 0.8 % (0.0-2.0); EOSINOPHILS % (AUTO) 12.4 % (0.0-6.0); HEMATOCRIT 33 % (39-51); LYMPHOCYTES # (AUTO) 1.3 K/uL (0.8-4.8); LYMPHOCYTES % (AUTO) 29.6 % (20.0-44.0); MEAN CORPUSCULAR HGB CONC 34 g/dl (31.0-36.0); MEAN CORPUSCULAR VOLUME 95 fL (80-96); MONOCYTES # (AUTO) 0.5 K/uL (0.1-1.30); MONOCYTES % (AUTO) 10.8 % (2.0-12.0); NEUTROPHILS # (AUTO) 2.1 K/uL (1.8-8.9); NEUTROPHILS % (AUTO) 46.4 % (43.0-81.0); PLATELET COUNT (AUTO) 195 K/uL (150-450); RED BLOOD CELL COUNT(AUTO) 3.45 MIL/uL (4.5-6.0); WHITE BLOOD COUNT (AUTO) 4.5 K/uL (4.3-11.0)
[2021-05-28 09:45] LABS: CALCIUM, SERUM 9.1 mg/dL (8.5-10.1); CARBON DIOXIDE 24 mmol/L (21-32); CHLORIDE 111 mmol/L (98-107); CREATININE 1.4 mg/dL (0.6-1.3); GLUCOSE 91 mg/dL (74-106); POTASSIUM 3.7 mmol/L (3.5-5.1); SODIUM SERUM 144 mmol/L (136-145); UREA NITROGEN, BLOOD 34 mg/dL (7-18)
[2021-05-28 09:49] LABS: D-DIMER 2.08 mg/L(FEU (0.17-0.50)
[2021-05-28] MEDS ORDERED: MULT-447 PO (10:18)
[2021-05-28] MEDS ORDERED: ASPI-1498 PO (10:18)
[2021-05-28] MEDS ORDERED: CHOL100062 PO (10:18)
[2021-05-28] MEDS ORDERED: POLY15DR40 EACHEYE (10:18)
[2021-05-28] MEDS ORDERED: METO25TA3 PO (10:18)
[2021-05-28] MEDS ORDERED: DULO60CA45 PO (10:18)
--- NOTE | 2021-05-28 10:27 | NUR ---
SUBMITTED MOVE SHEET
--- NOTE | 2021-05-28 10:53 | NUR ---
CALLED NURSING SUP
[2021-05-28 10:56] LABS: OCCULT BLOOD STOOL NEGATIVE (NEGATIVE)
--- NOTE | 2021-05-28 10:57 | NUR ---
covid swab collected and sent to lab.
[2021-05-28] MEDS ORDERED: ENOXAPARIN SODIUM 80 MG/0.8 ML DISP.SYRIN SQ ONE ×2 (11:00→11:03)
[2021-05-28] MEDS ORDERED: IV NS 0.9% 1,000 ML BAG IV ONE (11:00)
[2021-05-28] MEDS ORDERED: IOHEXOL-350 100 ML VIAL IV ONE (11:33)
[2021-05-28] MEDS ORDERED: IV NS 0.9% 250 ML IV ONE (11:33)
--- NOTE | 2021-05-28 11:33 | NUR ---
wheeled patient via gurney accompanied by [employer]PA [employer] for CTA.
[2021-05-28] MEDS ORDERED: ONDANSETRON HCL/PF 4 MG/2 ML VIAL IVP PRN (13:00)
[2021-05-28] MEDS ORDERED: MAG HYDROX/AL HYDROX/SIMETH 30 ML UDC PO PRN (13:00)
[2021-05-28] MEDS ORDERED: ACETAMINOPHEN 325 MG TABLET PO PRN (13:00)
[2021-05-28] MEDS ORDERED: Z GUARD REMEDY 2 OZ OINT TP PRN (13:00)
[2021-05-28] MEDS ORDERED: NITROGLYCERIN 0.4 MG/TAB BOTTLE SL PRN (13:00)
[2021-05-28] MEDS ORDERED: MORPHINE SULFATE INJ 2 MG/ML DISP.SYRIN IV PRN (13:00)
[2021-05-28] MEDS ORDERED: MAGNESIUM HYDROXIDE 30 ML UDC PO PRN (13:00)
--- NOTE | 2021-05-28 13:06 | NUR ---
urine collected and sent to lab.
[2021-05-28 13:19] LABS: BILIRUBIN,URINE Negative (NEGATIVE); COLOR,URINE YELLOW (YELLOW); LEUKOCYTE ESTERASE ,URINE Negative (NEGATIVE); NITRITE, URINE Negative (NEGATIVE); PH,URINE 5.5 (5.0-8.0); PROTEIN,URINE Negative (NEGATIVE); UGLUCOSE Negative (NEGATIVE); UROBILINOGEN,URINE 0.2 EU/dL (0.2)
[2021-05-28] MEDS ORDERED: LORAZEPAM 0.5 MG TABLET ONE (13:27)
[2021-05-28] MEDS ORDERED: LORAZEPAM 1 MG TABLET PO PRN (13:30)
[2021-05-28] MEDS ORDERED: LORAZEPAM INJ 2 MG/ML VIAL ONE (13:56)
[2021-05-28] MEDS ORDERED: MORPHINE SULFATE INJ 2 MG/ML DISP.SYRIN ONE (13:56)
[2021-05-28] MEDS ORDERED: LORAZEPAM 0.5 MG TABLET PO PRN (14:00)
[2021-05-28] MEDS ORDERED: MORPHINE SULFATE INJ 2 MG/ML DISP.SYRIN IV ONE (14:00)
[2021-05-28] MEDS ORDERED: LORAZEPAM INJ 2 MG/ML VIAL IV ONE (14:00)
[2021-05-28] MEDS ORDERED: METOPROLOL TARTRATE 50 MG TABLET PO SCH (16:30)
[2021-05-28] MEDS ORDERED: ATORVASTATIN 10 MG TABLET ONE (16:30)
[2021-05-28] MEDS ORDERED: METOPROLOL TARTRATE 50 MG TABLET ONE (16:31)
[2021-05-28] MEDS: METOPROLOL TARTRATE 50 MG TABLET PO SCH ×2 (16:33→23:00)
[2021-05-28] MEDS: ATORVASTATIN 10 MG TABLET PO SCH (16:33)
--- NOTE | 2021-05-28 21:47 | NUR ---
PT IN BED SLEEPING. NO DISTRESS NOTED.
--- NOTE | 2021-05-29 01:23 | NUR ---
PT AWAKE IN BED, REQUESTING FOR URINAL. REMAINS ON MONITOR AND PULSE OX.
[2021-05-29] MEDS ORDERED: LORAZEPAM 0.5 MG TABLET ONE (02:14)
[2021-05-29 04:52] LABS: BASOPHILS % (AUTO) 1.2 % (0.0-2.0); EOSINOPHILS % (AUTO) 10.7 % (0.0-6.0); HEMATOCRIT 33 % (39-51); HEMOGLOBIN 10.9 g/dL (13.5-17.5); LYMPHOCYTES # (AUTO) 1.1 K/uL (0.8-4.8); LYMPHOCYTES % (AUTO) 25.8 % (20.0-44.0); MEAN CORPUSCULAR HGB CONC 33 g/dl (31.0-36.0); MEAN CORPUSCULAR VOLUME 95 fL (80-96); MONOCYTES # (AUTO) 0.5 K/uL (0.1-1.30); MONOCYTES % (AUTO) 10.5 % (2.0-12.0); NEUTROPHILS # (AUTO) 2.2 K/uL (1.8-8.9); NEUTROPHILS % (AUTO) 51.8 % (43.0-81.0); PLATELET COUNT (AUTO) 193 K/uL (150-450); RED BLOOD CELL COUNT(AUTO) 3.44 MIL/uL (4.5-6.0); WHITE BLOOD COUNT (AUTO) 4.3 K/uL (4.3-11.0)
[2021-05-29 05:12] LABS: CALCIUM, SERUM 8.8 mg/dL (8.5-10.1); CREATININE 1.2 mg/dL (0.6-1.3); MAGNESIUM 2.1 mg/dL (1.8-2.4); PHOSPHORUS 3.8 mg/dL (2.5-4.9)
[2021-05-29 05:19] LABS: THYROID STIMULATING HORMONE 2.139 uIU/mL (0.358-3.74)
--- NOTE | 2021-05-29 06:04 | NUR ---
PT REQUESTING FOR URINAL.
--- NOTE | 2021-05-29 06:07 | NUR ---
TELE 325-2
--- NOTE | 2021-05-29 07:40 | NUR ---
report given to Tamera BEYER for nena.
--- NOTE | 2021-05-29 08:04 | NUR ---
wheeled patient via gurney accompanied by RN in no distress. RN assigned to patient at bedside to assume care.
--- NOTE | 2021-05-29 08:05 | NUR ---
FUEL CELL TEST ENGINEER ADMITTING NOTES PT TRANSPORTED TO UNIT BY [facility] AT THIS TIME. RECEIVED REPORT FROM KAYLEEN CEJA @ ER. PT AOX2-3, SOMETIMES FORGETFUL. NO SOB NOTED, NO S/O OF ANY ACUTE DISTRESS NOTED, NO C/O PAIN AT THIS TIME. SKIN IS INTACT AND WARM TO TOUCH, ACTIVE BOWEL SOUNDS AUSCULTATED THROUGHOUT, LUNGS ARE CLEAR TO AUSCULTATION. PULSES PRESENT BILATERALLY, CAPILLARY REFILL <3SECONDS. IV ACCESS NOTED IN LAC G#18, INTACT, PATENT AND FLUSHING WELL. SKIN INTACT. BELONGINGS ACCOUNTED FOR AND SIGNED BY PATIENT. PT ORIENTED TO ROOM AND INSTRUCTED TO CALL FOR ASSISTANTS. PT VERBALIZE UNDERSTANDING. ASPIRATION AND SAFETY PRECAUTIONS IN PLACE AND MAINTAINED AT ALL TIMES. BED IN LOWEST LOCKED POSITION, HOB ELEVATED, SIDE RAILS UP X2, CALL LIGHT AND TABLE WITHIN REACH. WILL CONTINUE TO MONITOR
[2021-05-29] MEDS: PANTOPRAZOLE 40 MG TABLET.DR PO SCH (08:24)
[2021-05-29] MEDS ORDERED: ASPIRIN EC 81 MG TABLET.DR PO SCH (09:00)
[2021-05-29] MEDS ORDERED: METOPROLOL SUCCINATE 25 MG TAB.SR.24H PO SCH (09:00)
--- NOTE | 2021-05-29 09:00 | NUR ---
UNABLE TO CONTACT APOLLO LAN, PT'S ([phone]), TO UPDATE ABOUT PATIENT BEING ADMITTED TO ROOM 323-1. WILL CONTINUE WITH PLAN OF CARE
[2021-05-29] MEDS: CHOLECALCIFEROL 1,000 UNIT TABLET (VIT D3) PO SCH (09:20)
[2021-05-29] MEDS: ASPIRIN EC 81 MG TABLET.DR PO SCH (09:22)
[2021-05-29] MEDS: METOPROLOL TARTRATE 50 MG TABLET PO SCH ×2 (09:23→20:39)
[2021-05-29] MEDS: ATORVASTATIN 10 MG TABLET PO SCH (09:23)
[2021-05-29] MEDS ORDERED: IOHEXOL-350 100 ML VIAL IV ONE (10:15)
[2021-05-29] MEDS ORDERED: IV NS 0.9% 250 ML IV ONE (10:15)
[2021-05-29] MEDS ORDERED: CT SWABBABLE VALVE TRANS SET 1 EA INFUS.SET MC ONE (10:15)
[2021-05-29] MEDS ORDERED: NITROGLYCERIN 0.4 MG/TAB BOTTLE SL ONE (10:30)
[2021-05-29] MEDS ORDERED: METOPROLOL TARTRATE INJ 5 MG/5 ML AMPUL IVP PRN (10:30)
[2021-05-29] MEDS ORDERED: NITROGLYCERIN 0.4 MG/TAB BOTTLE ONE (10:33)
--- NOTE | 2021-05-29 11:33 | NUR ---
DVT PUMPS APPLIED. WILL CONTINUE WITH PLAN OF CARE
[2021-05-29 12:06] VITALS: BP 132/67
[2021-05-29 16:17] VITALS: BP 134/66
--- NOTE | 2021-05-29 18:00 | NUR ---
PATIENT REFUSED TO SIGN CONSENT FOR LEFT HEART CATHETERIZATION AT THIS TIME STATING, "CALL MY ". APOLLO LAN, PT'S ([phone]), UNREACHABLE BY PHONE AT THIS TIME. WILL CONTINUE WITH PLAN OF CARE
--- NOTE | 2021-05-29 18:49 | NUR ---
PATIENT PROVIDED ANOTHER NUMBER FOR HIS ([phone]). UNREACHABLE BY PHONE AT THIS TIME. WILL CONTINUE WITH PLAN OF CARE
--- NOTE | 2021-05-29 19:00 | NUR ---
RN CLOSING NOTES RECEIVED PT AWAKE IN BED, PT REMAINED STABLE THROUGHOUT SHIFT. ALL PATIENT CARE, NEEDS AND MEDICATIONS ADMINISTERED ANTICIPATED PER ORDER. KEPT CLEAN AND DRY. SAFETY PRECAUTIONS IN PLACE AND MAINTAINED AT ALL TIMES. BED IN LOWEST LOCKED POSITION, HOB ELEVATED, SIDE RAILS UP X2, CALL LIGHT AND TABLE WITHIN REACH. WILL ENDORSE TO SENIOR ACCOUNTANT CPA NURSE FOR SONDRA
--- NOTE | 2021-05-29 19:42 | NUR ---
LABORER POLE CREW OPENING NOTE PATIENT A/OX3; ABLE TO MAKE NEEDS KNOWN ON ROOM AIR TOLERATING WELL WITH NO SOB. EXTERNAL SALES REPRESENTATIVE CASH REGISTERS READS SB. PATIENT DENIES PAIN/DISCOMFORT AT THIS TIME. LAC #18G S/L; PATENT AND INTACT. SAFETY MEASURES IN PLACE: BED IN LOWEST LOCKED POSITION, SIDE RAILS UPX2, CALL LIGHT WITHIN EASY REACH. PATIENT IN STABLE CONDITION. WILL CONTINUE PLAN OF CARE.
[2021-05-29 20:00] VITALS: BP 140/60
[2021-05-29] MEDS: ZOLPIDEM TARTRATE 5 MG TABLET PO PRN (20:39)
--- NOTE | 2021-05-29 20:39 | NUR ---
BRANCH OPERATIONS COORDINATOR NOTE PATIENT C/O NOT BEING ABLE TO FALL ASLEEP. ADMINISTERED AMBIEN REQUESTED AND ORDERED. WILL CONTINUE TO REASSESS IN 1 HOUR.
[2021-05-29] MEDS: HYDROCODONE/APAP 5/325MG TABLET PO PRN (22:41)
[2021-05-30] VITALS: BP 124/59
[2021-05-30 04:00] VITALS: BP 127/58
[2021-05-30] MEDS: MORPHINE SULFATE INJ 2 MG/ML DISP.SYRIN IV PRN (05:00)
--- NOTE | 2021-05-30 05:01 | NUR ---
COMPOSITE BOND WORKER NOTE - PAIN PATIENT C/O 07/21 ABD PAIN. ADMINISTERED MORPHINE ORDERED. WILL CONTINUE TO REASSESS FOR PAIN IN 30 MINUTES.
--- NOTE | 2021-05-30 05:05 | NUR ---
COUNTER CLERK NOTE - CONSENT EDUCATED PATIENT THE NEED FOR LEFT HEART CATHETERIZATION AND POSSIBLE PCI, PATIENT REFUSED TO SIGN SURGICAL CONSENT FORM AND TO PARTICIPATE IN ANESTHESIA CONSENT FORM STATING "I COULD FROM THIS." PATIENT MAINTAINED ON NPO DIET.
--- NOTE | 2021-05-30 06:45 | NUR ---
NETWORK PRICING CONSULTANT CLOSING NOTE PATIENT A/OX3; ABLE TO MAKE NEEDS KNOWN ON ROOM AIR TOLERATING WELL WITH NO SOB. EXTERNAL TEMPERATURE CONTROL INSPECTOR READS SB WITH BBB AT 43. PATIENT DENIES PAIN/DISCOMFORT AT THIS TIME. LAC #18G S/L; PATENT AND INTACT. SAFETY MEASURES IN PLACE: BED IN LOWEST LOCKED POSITION, SIDE RAILS UPX2, CALL LIGHT WITHIN EASY REACH. PATIENT IN STABLE CONDITION. WILL ENDORSE PLAN OF CARE TO ONCOMING MORNING RN.
[2021-05-30 07:07] LABS: BASOPHILS # (AUTO) 0.1 K/uL (0.0-0.2); HEMATOCRIT 34 % (39-51); HEMOGLOBIN 11.5 g/dL (13.5-17.5); LYMPHOCYTES # (AUTO) 1.4 K/uL (0.8-4.8); LYMPHOCYTES % (AUTO) 26.6 % (20.0-44.0); MEAN CORPUSCULAR HGB CONC 33 g/dl (31.0-36.0); MEAN CORPUSCULAR VOLUME 95 fL (80-96); MONOCYTES # (AUTO) 0.6 K/uL (0.1-1.30); MONOCYTES % (AUTO) 10.9 % (2.0-12.0); NEUTROPHILS # (AUTO) 2.8 K/uL (1.8-8.9); NEUTROPHILS % (AUTO) 53.5 % (43.0-81.0); PLATELET COUNT (AUTO) 228 K/uL (150-450); RED BLOOD CELL COUNT(AUTO) 3.61 MIL/uL (4.5-6.0); WHITE BLOOD COUNT (AUTO) 5.2 K/uL (4.3-11.0)
--- NOTE | 2021-05-30 07:30 | NUR ---
received pt. in am alert and oriented x4.upon meeting nurse asking for ativan.bp low and informed already to receive librium.otherwise vs stable. Addendum: 05/30/21 at 1533 by JAKE BLANCAS RN incorrect pt.
--- NOTE | 2021-05-30 07:30 | NUR ---
npo for heart cath,but at this time refusing to sign consent. Addendum: 05/30/21 at 1600 by JAKE BLANCAS RN incorrect pt.
[2021-05-30 07:32] LABS: ALANINE AMINOTRANSFERASE 49 U/L (12-78); ALBUMIN 3.3 g/dL (3.4-5.0); ALKALINE PHOSPHATASE 53 U/L (46-116); ASPARTATE AMINOTRANSFERASE 18 U/L (15-37); BILIRUBIN,TOTAL 0.4 mg/dL (0.2-1.0); CALCIUM, SERUM 8.9 mg/dL (8.5-10.1); CARBON DIOXIDE 28 mmol/L (21-32); CHLORIDE 108 mmol/L (98-107); CREATININE 1.4 mg/dL (0.6-1.3); GLUCOSE 93 mg/dL (74-106); PHOSPHORUS 4.6 mg/dL (2.5-4.9); POTASSIUM 4.2 mmol/L (3.5-5.1); SODIUM SERUM 141 mmol/L (136-145); TOTAL PROTEIN, SERUM 6.5 g/dL (6.4-8.2); UREA NITROGEN, BLOOD 24 mg/dL (7-18)
--- NOTE | 2021-05-30 07:45 | NUR ---
npo for heart cath,but refusing to sign consent.unable to reach .
[2021-05-30 08:00] VITALS: BP 141/71
--- NOTE | 2021-05-30 08:00 | NUR ---
bill pedraza up on floor as well as dr. her,pt. still refusing,verbalized depressed.
[2021-05-30] MEDS: IV 1/2NS 1000 ML 1,000 ML IV PRN (08:44)
[2021-05-30] MEDS: METOPROLOL TARTRATE 50 MG TABLET PO SCH ×2 (09:00→20:55)
[2021-05-30] MEDS: ATORVASTATIN 10 MG TABLET PO SCH (10:19)
[2021-05-30] MEDS: CHOLECALCIFEROL 1,000 UNIT TABLET (VIT D3) PO SCH (10:19)
[2021-05-30] MEDS: PANTOPRAZOLE 40 MG TABLET.DR PO SCH (10:19)
[2021-05-30] MEDS ORDERED: LORAZEPAM 0.5 MG TABLET PO PRN (10:30)
[2021-05-30] MEDS: risperiDONE-M 0.5 MG TAB.RAPDIS PO SCH ×2 (10:47→17:51)
[2021-05-30] MEDS: VENLAFAXINE XR 37.5 MG CAP.SR.24H PO SCH (10:48)
--- NOTE | 2021-05-30 11:00 | NUR ---
dr. santiago in and dc order given. Addendum: 05/30/21 at 1532 by JAKE BLANCAS RN incorrect pt.
--- NOTE | 2021-05-30 11:00 | NUR ---
jhon phillips soc. worker as well as dr. hernandez in to see pt.meds ordered.
[2021-05-30] MEDS: ASPIRIN EC 81 MG TABLET.DR PO SCH (11:01)
--- NOTE | 2021-05-30 11:16 | NUR ---
SS Note: MIGUELANGEL notified by charge nurse, Manuela that pt. is worried about his , Ham Allan [phone]. SW called pt.'s and left SW call back number. SW will be available as needle.
--- NOTE | 2021-05-30 13:30 | NUR ---
solutions engineer light,staes having panic attack,requesting o2.o2 cannula applied.pt. pleased.
--- NOTE | 2021-05-30 14:13 | NUR ---
Crisis Team Note Dr Johnson requested evaluation of this patient who was refusing cardiac catheterization today. Met with patient who continues to to refuse cardiac catheterization. He stated " my family want me '. Patient has been on our GPs unit before in 2019 and has a psychiatric history. Advised Dr Johnson that patient continues to refuse and appears very depressed. Patient may also have some sort of cognitive deficit but he is under the covers and an accurate MSE could not be done. An order was put in for a psychiatry consult for Dr Brar by Dr Johnson. Dr Brar was notified. Patient is currently too sick for transfer to [facility] per Dr Johnson. Will consider patient for GPS when he is medically clear. Dr Johnson will reattempt cardiac catheterization he stated.
[2021-05-30 16:00] VITALS: BP 142/67
--- NOTE | 2021-05-30 19:00 | NUR ---
yelling loudly and demanding oxygen-states he needs it for a panic attack.
--- NOTE | 2021-05-30 19:49 | NUR ---
COSTUME DESIGN TEACHER OPENING NOTE PATIENT A/OX3; ABLE TO MAKE NEEDS KNOWN ON ROOM AIR TOLERATING WELL WITH NO SOB. EXTERNAL CUSTOMER RELATIONS ASSISTANT READS SR. LAC #18G 1/2 NS @60ML/HR; PATENT AND INTACT. SAFETY MEASURES IN PLACE: BED IN LOWEST LOCKED POSITION, SIDE RAILS UPX2, CALL LIGHT WITHIN EASY REACH. PATIENT IN STABLE CONDITION. WILL CONTINUE PLAN OF CARE.
[2021-05-30 20:25] VITALS: BP 133/64
[2021-05-30] MEDS: HYDROCODONE/APAP 5/325MG TABLET PO PRN (20:55)
[2021-05-30] MEDS: ZOLPIDEM TARTRATE 5 MG TABLET PO PRN (20:55)
--- NOTE | 2021-05-30 20:55 | NUR ---
QUILT MAKER NOTE - PAIN / INSOMNIA PT C/O 05/20 LEFT ABD PAIN AND INSOMNIA. ADMINISTERED NORCO AND AMBIEN ORDERED. WILL REASSESS FOR PAIN AND SLEEP IN 1 HOUR.
[2021-05-31] VITALS (14 sets, daily range): BP systolic 116–170; BP diastolic 61–73
[2021-05-31] MEDS: IV 1/2NS 1000 ML 1,000 ML IV PRN (01:49)
[2021-05-31 06:04] LABS: BASOPHILS % (AUTO) 1.1 % (0.0-2.0); EOSINOPHILS % (AUTO) 8.4 % (0.0-6.0); HEMATOCRIT 32 % (39-51); HEMOGLOBIN 10.8 g/dL (13.5-17.5); LYMPHOCYTES # (AUTO) 1.4 K/uL (0.8-4.8); LYMPHOCYTES % (AUTO) 32.6 % (20.0-44.0); MEAN CORPUSCULAR HGB CONC 34 g/dl (31.0-36.0); MEAN CORPUSCULAR VOLUME 95 fL (80-96); MONOCYTES # (AUTO) 0.5 K/uL (0.1-1.30); MONOCYTES % (AUTO) 11.9 % (2.0-12.0); NEUTROPHILS # (AUTO) 1.9 K/uL (1.8-8.9); PLATELET COUNT (AUTO) 203 K/uL (150-450); RED BLOOD CELL COUNT(AUTO) 3.38 MIL/uL (4.5-6.0); WHITE BLOOD COUNT (AUTO) 4.2 K/uL (4.3-11.0)
[2021-05-31] MEDS: MORPHINE SULFATE INJ 2 MG/ML DISP.SYRIN IV PRN (06:31)
--- NOTE | 2021-05-31 06:31 | NUR ---
HEART NURSE CLOSING NOTE PT IN BED A/OX2; ABLE TO MAKE NEEDS KNOWN. ON ROOM AIR; TOLERATING WELL WITH NO SOB. LAX #18G; 1/2 NS @ 60 ML/HR; PATENT AND INTACT. PT C/O 08/20 PAIN. ADMINISTERED MORPHINE ORDERED. WILL CONTINUE TO REASSESS FOR PAIN IN 30 MINUTES. SAFETY MEASURES IN PLACE: BED IN LOWEST LOCKED POSITION, SIDE RAILS UPX2, CALL LIGHT WITHIN EASY REACH, BED ALARM ON. WILL ENDORSE SONDRA TO ONCOMING MORNING RN.
[2021-05-31 06:34] LABS: CALCIUM, SERUM 8.5 mg/dL (8.5-10.1); CREATININE 1.1 mg/dL (0.6-1.3); MAGNESIUM 1.9 mg/dL (1.8-2.4); PHOSPHORUS 4.6 mg/dL (2.5-4.9)
--- NOTE | 2021-05-31 07:25 | NUR ---
RN OPENING NOTE RECEIVED PATIENT RESTING IN BED, EASILY AWAKENS, A/O X3 AND ABLE TO MAKE NEEDS KNOWN. ON ROOM AIR TOLERATING WELL WITH SPO2 @99%. IV ACCESS ON LAC #18G INTACT AND PATENT. ON EXTERNAL PROJECT ACCOUNT MANAGER CURRENTLY READING SB @48BPM, WITH BBB'S AND OCCASIONAL PVC'S. PT DENIES ANY PAIN OR ANY CARDIAC DISCOMFORT. SAFETY MEASURES IN PLACE: BED IN LOWEST LOCKED POSITION, SIDE RAILS UPX2, CALL LIGHT WITHIN EASY REACH. PATIENT IN STABLE CONDITION. WILL CONTINUE PLAN OF CARE.
[2021-05-31] MEDS: PANTOPRAZOLE 40 MG TABLET.DR PO SCH (07:30)
[2021-05-31] MEDS: ASPIRIN EC 81 MG TABLET.DR PO SCH (09:00)
[2021-05-31] MEDS: CHOLECALCIFEROL 1,000 UNIT TABLET (VIT D3) PO SCH (09:00)
[2021-05-31] MEDS: VALSARTAN 80 MG TABLET PO SCH (09:00)
[2021-05-31] MEDS: risperiDONE-M 0.5 MG TAB.RAPDIS PO SCH ×2 (09:00→17:13)
[2021-05-31] MEDS: ATORVASTATIN 10 MG TABLET PO SCH (09:00)
[2021-05-31] MEDS: METOPROLOL TARTRATE 50 MG TABLET PO SCH ×2 (09:00→21:38)
[2021-05-31] MEDS: VENLAFAXINE XR 37.5 MG CAP.SR.24H PO SCH (09:00)
--- NOTE | 2021-05-31 09:29 | NUR ---
RN NOTES PT AGREED TO HAVE CATHETERIZATION DONE TODAY. DR. CUTLER ON UNIT AND MADE AWARE AND WENT TO TALK TO PT. PER DR. CUTLER PT WILL HAVE PROCEDURE DONE THIS AFTERNOON. PT PLACED ON NPO.
--- NOTE | 2021-05-31 14:11 | NUR ---
RN NOTE PT PICKED UP BY CARDIAC FISH FILLETER STAFF WITH SON ACCOMPANYING.
[2021-05-31] MEDS ORDERED: FENTANYL PF 100MCG/2ML AMPUL ONE (14:19)
[2021-05-31] MEDS ORDERED: IV SET PRIMARY PUMP SET 1 EA INFUS.SET MC ONE (14:19)
[2021-05-31] MEDS ORDERED: MIDAZOLAM HCL 2 MG/2ML VIAL ONE (14:19)
[2021-05-31] MEDS ORDERED: IV NS 0.9% 1,000 ML ONE (14:19)
[2021-05-31] MEDS ORDERED: IODIXANOL 150 ML IV ONE (14:20)
[2021-05-31] MEDS ORDERED: LIDOCAINE HCL/MPF 1% 30 ML VIAL IJ ONE (14:21)
[2021-05-31] MEDS ORDERED: NITROGLYCERIN IN 5 % DEXTROSE 250 ML IV ONE (14:21)
--- NOTE | 2021-05-31 15:40 | NUR ---
RN NOTES PT RETURNED TO UNIT @1525 S/P LEFT CARDIAC CATHETERIZATION BY DR. PHILLIPS. PT IS AWAKE, A/O X3, NO C/O PAIN VOICED AT THIS TIME. SON AT BEDSIDE. TR BAND NOTED ON R-ARM, NO BLEEDING NOTED. S/P PROCEDURE ORDERS RECEIVED AND CARRIED OUT.
[2021-05-31] MEDS ORDERED: IV NS 0.9% 1,000 ML IV ONE (16:00)
--- NOTE | 2021-05-31 16:55 | NUR ---
RN NOTES PT NOTED WITH BP'S OF 162/68, 161/68, 168/70. REPORTED TO DR. PHILLIPS WITH ORDER TO GIVE HYDRALAZINE 10MG IV Q4H PRN FOR SBP >160. ORDER CARRIED OUT.
[2021-05-31] MEDS ORDERED: hydrALAZINE HCL IV 20 MG VIAL IV PRN (17:00)
--- NOTE | 2021-05-31 17:03 | NUR ---
RN NOTES AT 1700, REMOVED 3ML OF 14ML OF AIR FROM TR BAND. V/S TAKEN: BP 148/72, P 77, R 18 M T 97.8 AND SP02 100% ON 2LPM VIA N/C. WILL CONTINUE TO MONITOR.
--- NOTE | 2021-05-31 17:22 | NUR ---
RN NOTES AT 1715, REMOVED 3ML OF AIR FROM TR BAND. V/S TAKEN: BP 144/61, P 72, R 18, T 98 AND SP02 100% ON 2LPM VIA N/C. WILL CONTINUE TO MONITOR.
--- NOTE | 2021-05-31 17:39 | NUR ---
RN NOTES AT 1730, REMOVED 3ML OF AIR FROM TR BAND. V/S TAKEN: BP 131/63, P 95, R 18, T 97.8 AND SP02 98% ON ROOM AIR. PT A/O X2-3, EATING DINNER. WILL CONTINUE TO MONITOR.
--- NOTE | 2021-05-31 17:50 | NUR ---
RN NOTES AT 1745, REMOVED 3ML OF AIR FROM TR BAND, NO BLEEDING NOTED. V/S TAKEN: BP 122/62, P 93, R 18, T 98.1 AND SP02 98% ON ROOM AIR. PT A/O X3. WILL CONTINUE TO MONITOR.
--- NOTE | 2021-05-31 18:03 | NUR ---
RN NOTES AT 1800, REMOVED 2ML OF AIR FROM TR BAND, TOTAL AIR REMOVED 14ML. TR BAND REMOVED. NO BLEEDING NOTED. V/S TAKEN: BP 116/61, P 87, R 18, T 97.6 AND SP02 98% ON ROOM AIR. PT A/O X3, WATCHING TV AT THIS TIME. WILL CONTINUE TO MONITOR.
--- NOTE | 2021-05-31 18:56 | NUR ---
LANG INTERPRETER CLOSING NOTES PT AWAKE IN BED, WATCHING TV AT THIS TIME, A/O X3 AND ABLE TO MAKE NEEDS KNOWN. ON ROOM AIR TOLERATING WELL WITH SPO2 @98%. PT S/P LEFT CARDIAC CATHETERIZATION. TR BAND ON R-LOWER ARM REMOVED @1800, NO BLEEDING NOTED. IV ACCESS ON LAC #18G INTACT AND PATENT. IVF 0.9% NS RUNNING @100ML/HR, TO RUN UNTIL 2200 ONLY. ON EXTERNAL DIVISION OFFICER WEAPONS DEPARTMENT CURRENTLY READING NSR IN THE 80'S, WITH BBB'S. PT DENIES ANY PAIN OR ANY CARDIAC DISCOMFORT. SAFETY MEASURES IN PLACE: BED IN LOWEST LOCKED POSITION, SIDE RAILS UPX2, CALL LIGHT WITHIN EASY REACH. PATIENT IN STABLE CONDITION. WILL CONTINUE PLAN OF CARE.
[2021-05-31] MEDS: ZOLPIDEM TARTRATE 5 MG TABLET PO PRN (21:43)
[2021-06-01] VITALS: BP 130/69
[2021-06-01] MEDS: HYDROCODONE/APAP 5/325MG TABLET PO PRN ×2 (01:55→21:11)
[2021-06-01 05:34] VITALS: BP 111/53
[2021-06-01 06:28] LABS: BASOPHILS % (AUTO) 0.8 % (0.0-2.0); HEMATOCRIT 37 % (39-51); HEMOGLOBIN 12.3 g/dL (13.5-17.5); LYMPHOCYTES # (AUTO) 1.2 K/uL (0.8-4.8); LYMPHOCYTES % (AUTO) 22.3 % (20.0-44.0); MEAN CORPUSCULAR HGB CONC 34 g/dl (31.0-36.0); MEAN CORPUSCULAR VOLUME 95 fL (80-96); MONOCYTES # (AUTO) 0.4 K/uL (0.1-1.30); MONOCYTES % (AUTO) 8.4 % (2.0-12.0); NEUTROPHILS # (AUTO) 3.3 K/uL (1.8-8.9); NEUTROPHILS % (AUTO) 62.5 % (43.0-81.0); PLATELET COUNT (AUTO) 239 K/uL (150-450); RED BLOOD CELL COUNT(AUTO) 3.87 MIL/uL (4.5-6.0); WHITE BLOOD COUNT (AUTO) 5.2 K/uL (4.3-11.0)
[2021-06-01 06:33] LABS: ALBUMIN 3.4 g/dL (3.4-5.0); BILIRUBIN,TOTAL 0.5 mg/dL (0.2-1.0); CALCIUM, SERUM 8.7 mg/dL (8.5-10.1); CREATININE 1.2 mg/dL (0.6-1.3); MAGNESIUM 1.9 mg/dL (1.8-2.4); POTASSIUM 4.1 mmol/L (3.5-5.1); TOTAL PROTEIN, SERUM 6.4 g/dL (6.4-8.2)
[2021-06-01] MEDS: MORPHINE SULFATE INJ 2 MG/ML DISP.SYRIN IV PRN (07:11)
--- NOTE | 2021-06-01 07:25 | NUR ---
CAP PARTS CUTTER OPENING NOTES RECEIVED PATIENT AWAKE AND WATCHING TV IN BED. A/O X3. ABLE TO MAKE NEEDS KNOWN, PT VERBALIZED THAT HE JUST RECEIVED MORPHINE AT 0711 AND NO PAIN AT THIS TIME. . ON ROOM AIR, TOLERATING WELL WITH NO SOB NOTED. IV ACCESS ON LAC #18G INTACT AND PATENT. ON EXTERNAL ITALIAN LECTURER CURRENTLY READING SB @57 BPM WITH EPISODES OF TRIGEMINY, NO C/O OF CARDIAC DISTRESS AT THIS TIME. SAFETY MEASURES IN PLACE: BED IN LOWEST LOCKED POSITION, SIDE RAILS UP X2, CALL LIGHT WITHIN EASY REACH. WILL CONTINUE TO MONITOR PT.
--- NOTE | 2021-06-01 07:45 | NUR ---
DRY KILN OPERATOR CLOSING NOTES: PATIENT IN BED, AWAKE WITH NO COMPLAIN OF PAIN AND DISCOMFORT, ON BR USING URINAL, BED IN LOW POSITION, CALL LIGHTS WITHIN REACH, ON TELE MONITORING , NO CHANGES OBSERVED, ALL NEEDS ATTENDED, KEPT CLEAN AND DRY, ENDORSE TO INCOMING SHIFT.
[2021-06-01 08:00] VITALS: BP 157/76
[2021-06-01] MEDS: METOPROLOL TARTRATE 50 MG TABLET PO SCH ×2 (08:43→21:03)
[2021-06-01] MEDS: VALSARTAN 80 MG TABLET PO SCH (08:43)
[2021-06-01] MEDS: VENLAFAXINE XR 37.5 MG CAP.SR.24H PO SCH (08:44)
[2021-06-01] MEDS: ATORVASTATIN 10 MG TABLET PO SCH (08:44)
[2021-06-01] MEDS: risperiDONE-M 0.5 MG TAB.RAPDIS PO SCH ×2 (08:44→17:10)
[2021-06-01] MEDS: PANTOPRAZOLE 40 MG TABLET.DR PO SCH (08:45)
[2021-06-01] MEDS: CHOLECALCIFEROL 1,000 UNIT TABLET (VIT D3) PO SCH (08:45)
[2021-06-01] MEDS: ASPIRIN EC 81 MG TABLET.DR PO SCH (09:42)
[2021-06-01 12:00] VITALS: BP 145/64
[2021-06-01 16:00] VITALS: BP 119/58
--- NOTE | 2021-06-01 18:38 | NUR ---
DIRECTOR OF RESERVATIONS CLOSING NOTES PT IN BED WATCHING TV AT THIS TIME. HOB ELEVATED. A/O X3. ABLE TO MAKE NEEDS KNOWN. ON ROOM AIR TOLERATING WELL WITH NO SOB NOTED. IV ACCESS ON LAC #18G INTACT, PATENT AND FLUSHES WELL. ON EXTERNAL METAL MOLDER CURRENTLY READING NSR IN THE 80'S, WITH BBB'S, TRIGEMINY AND BIGEMINY, NO C/O CARDIAC DISTRESS VOICED. SAFETY MEASURES IN PLACE: BED IN LOWEST LOCKED POSITION, SIDE RAILS UPX2, CALL LIGHT WITHIN EASY REACH. PATIENT IN STABLE CONDITION. WILL CONTINUE PLAN OF CARE.
[2021-06-01 20:00] VITALS: BP 115/60
--- NOTE | 2021-06-01 20:00 | NUR ---
SULFIDE HEAD OPERATOR OPENING NOTES Patient is A&Ox3, son at bedside. Reminded pt of procedure tomorrow and that he is to be NPO after 2229. Patient is agreeable and signed consents. LAC #18G intact and patent, saline flushed.
[2021-06-01] MEDS: ZOLPIDEM TARTRATE 5 MG TABLET PO PRN (21:11)
[2021-06-02] VITALS (12 sets, daily range): BP systolic 99–168; BP diastolic 31–87
[2021-06-02] MEDS ORDERED: IV SET PRIMARY PUMP SET 1 EA INFUS.SET MC ONE (05:38)
[2021-06-02] MEDS ORDERED: LIDOCAINE HCL/PF 1% 30 ML SDV ONE (05:38)
[2021-06-02] MEDS ORDERED: IODIXANOL 150 ML IV ONE (05:38)
[2021-06-02] MEDS ORDERED: IV NS 0.9% 1,000 ML ONE (05:38)
--- NOTE | 2021-06-02 06:00 | NUR ---
Patient taken to oil laboratory analyst at 0600, accompanied by 4 staff. Vs before going 115/66, 59, 97.9, 97%, 17. stable, awake, A&Ox3. Patient will be going to ICU after catheterization. endorsed to staff. Belongings taken up to room 260 by CECY.
[2021-06-02] MEDS ORDERED: NITROGLYCERIN IN 5 % DEXTROSE 250 ML IV ONE (06:15)
[2021-06-02] MEDS ORDERED: IODIXANOL 320MG/ML 50 ML IV ONE (06:15)
[2021-06-02] MEDS ORDERED: FENTANYL PF 100MCG/2ML AMPUL ONE (06:24)
[2021-06-02] MEDS ORDERED: MIDAZOLAM HCL 2 MG/2ML VIAL ONE (06:24)
[2021-06-02] MEDS ORDERED: HEPARIN SODIUM, PORCINE 1,000 UNIT/ML VIAL ONE (06:25)
[2021-06-02] MEDS ORDERED: HEPARIN SODIUM, PORCINE 5000 UNITS/1 ML VIAL ONE (06:52)
[2021-06-02] MEDS ORDERED: ASPIRIN 81 MG TAB.CHEW ONE (06:53)
[2021-06-02] MEDS ORDERED: TICAGRELOR 90 MG TABLET PO ONE (06:53)
[2021-06-02] MEDS ORDERED: NICARDIPINE HCL 25 MG/10 ML VIAL IV ONE (07:03)
[2021-06-02] MEDS ORDERED: IODIXANOL 320MG/ML 100 ML IV ONE (07:16)
--- NOTE | 2021-06-02 08:15 | NUR ---
LEARNING DEVELOPMENT SPECIALIST NOTES RECEIVED PATIENT S/P CTA , WITH TR BAND @ RIGHT WRIST WARM TO TOUCH WITH GOOD CAPILLARY REFILL DENIES TINGLING SENSATION AT THIS TIME , SPO2 OF 100% VIA RA , SB 58 VIA BEDSIDE MONITOR , VSS AFEBRILE , POST CTA ORDERS CARRIED OUT AND FAXED TO PHARMACY , PIV PATENT AND INTACT NS @ 100ML/HR INFUSING WELL X6 HOURS , WILL CONTINUE TO MONITOR ,
[2021-06-02] MEDS ORDERED: IV NS 0.9% 1,000 ML IV ONE (08:30)
[2021-06-02] MEDS ORDERED: MEPERIDINE25 MG SYR 25 MG/ML VIAL IV ONE (09:00)
[2021-06-02] MEDS ORDERED: ASPIRIN 81 MG TAB.CHEW PO SCH (09:00)
[2021-06-02] MEDS: METOPROLOL TARTRATE 50 MG TABLET PO SCH (09:39)
[2021-06-02] MEDS: risperiDONE-M 0.5 MG TAB.RAPDIS PO SCH ×2 (09:39→17:43)
[2021-06-02] MEDS: ASPIRIN EC 81 MG TABLET.DR PO SCH (09:39)
[2021-06-02] MEDS: CHOLECALCIFEROL 1,000 UNIT TABLET (VIT D3) PO SCH (09:39)
[2021-06-02] MEDS: VALSARTAN 80 MG TABLET PO SCH (09:39)
[2021-06-02] MEDS: PANTOPRAZOLE 40 MG TABLET.DR PO SCH (09:39)
[2021-06-02] MEDS: ATORVASTATIN 10 MG TABLET PO SCH (09:39)
[2021-06-02] MEDS: VENLAFAXINE XR 37.5 MG CAP.SR.24H PO SCH (09:39)
[2021-06-02 10:07] LABS: BASOPHILS # (AUTO) 0.1 K/uL (0.0-0.2); BASOPHILS % (AUTO) 1.2 % (0.0-2.0); EOSINOPHILS % (AUTO) 6.9 % (0.0-6.0); HEMATOCRIT 38 % (39-51); HEMOGLOBIN 12.6 g/dL (13.5-17.5); LYMPHOCYTES # (AUTO) 1.4 K/uL (0.8-4.8); LYMPHOCYTES % (AUTO) 25.3 % (20.0-44.0); MEAN CORPUSCULAR HGB CONC 33 g/dl (31.0-36.0); MEAN CORPUSCULAR VOLUME 96 fL (80-96); MONOCYTES # (AUTO) 0.3 K/uL (0.1-1.30); NEUTROPHILS # (AUTO) 3.4 K/uL (1.8-8.9); NEUTROPHILS % (AUTO) 60.6 % (43.0-81.0); PLATELET COUNT (AUTO) 233 K/uL (150-450); RED BLOOD CELL COUNT(AUTO) 3.98 MIL/uL (4.5-6.0); WHITE BLOOD COUNT (AUTO) 5.6 K/uL (4.3-11.0)
[2021-06-02 10:14] LABS: CALCIUM, SERUM 8.8 mg/dL (8.5-10.1); CARBON DIOXIDE 27 mmol/L (21-32); CHLORIDE 105 mmol/L (98-107); CREATININE 1.5 mg/dL (0.6-1.3); GLUCOSE 141 mg/dL (74-106); PHOSPHORUS 3.5 mg/dL (2.5-4.9); SODIUM SERUM 140 mmol/L (136-145); UREA NITROGEN, BLOOD 22 mg/dL (7-18)
--- NOTE | 2021-06-02 13:53 | NUR ---
SUPERVISOR CORRESPONDENCE SECTION NOTES TR BAND REMOVED , NO BLEEDING NOTED , TRANSPARENT DRESSING PLACED , WILL CONTINUE TO MONITOR .
--- NOTE | 2021-06-02 16:30 | NUR ---
MAINTENANCE MACHINIST NOTES SPOKE WITH PT SON DARRYL , NOTIFIED PT WILL BE DISCHARGED TODAY , NOTIFIED REGARDING PRESCRIPTION OF PLAVIX TO BE PICKED UP AT [facility] , DISCUSSED THAT HIS DAD NEEDS TO TAKE IT HE HAD STENT PLACEMENT AND THE PHARMACY CLOSED AT 6PM , DARRYL VERBALIZED UNDERSTANDING AND WILL REFINISH TECHNICIAN THE PRESCRIPTION PRIOR TO DC PAGED DANIELLE BACH FOR DC ORDER , AWAITING FOR CALL BACK
--- NOTE | 2021-06-02 17:30 | NUR ---
SHIP ERECTOR NOTES PAGED DANIELLE BAHC VIA [employer] DIESEL MAINTENANCE TECHNICIAN FOR DC ORDER , AWAITING FOR CALL BACK
--- NOTE | 2021-06-02 18:47 | NUR ---
INSOLE DOUBLER NOTES RECEIVED A CALL FROM JUANCHO BACH , RECEIVED A VERBAL ORDER TO DC PATIENT TO HOME PATIENT STABLE UPON DISCHARGE NO ACUTE EVENTS NOTED , VS STABLE NO DISTRESS , DENIES SOB AND CHEST PAIN , IV REMOVED NO BLEEDING NOTED , RIGHT WRIST CLEAR DRESSING CLEAN DRY AND INTACT WITH NO ACTIVE BLEEDING NOTED , SKIN IS INTACT , DISCHARGE INSTRUCTIONS GIVEN TO SON , DISCUSSED THE IMPORTANCE OF TAKING PLAVIX 600MG @ 2200 TONIGHT AND TAKING PLAVIX 75MG DAILY , INSTRUCTED TO FOLLOW UP WITH DR CUTLER AFTER ONE WEEK , SON AGREED AND VERBALIZED UNDERSTANDING, BELONGING LIST CHECKED , WHEELED DOWN PATIENT TO THE LOBBY .
[2021-06-02] MEDS ORDERED: CLOPIDOGREL BISULFATE 75 MG TABLET PO ONE (22:00)
[2021-06-03] MEDS ORDERED: CLOPIDOGREL BISULFATE 75 MG TABLET PO SCH (09:00)
[2021-06-03] MEDS ORDERED: ASPIRIN 81 MG TAB.CHEW PO SCH (09:00)
[2021-06-03] MEDS ORDERED: CLOP75TA15 PO (16:15)
[2021-06-03] MEDS ORDERED: VALS80TA2 PO (16:15)
[2021-06-03] MEDS ORDERED: ATOR10TA PO (16:15)
== END 2021-06-02 18:40 | disposition home or self-care (01) | DRG 246 ==
LOC: ER 08:58 → TRANSITION 14:12 → TELE 05-29 06:15 → ICU 06-02 07:48
PROVIDERS: ATTEND Hospitalist
PROC: 4A023N7 Measurement of Cardiac Sampling and Pressure, Left Heart, Percutaneous Approach (ICD-10-PCS; principal; 2021-05-31)
PROC: B211YZZ Fluoroscopy of Multiple Coronary Arteries using Other Contrast (ICD-10-PCS; 2021-05-31)
PROC: B215YZZ Fluoroscopy of Left Heart using Other Contrast (ICD-10-PCS; 2021-05-31)
PROC: 027136Z Dilation of Coronary Artery, Two Arteries with Three Drug-eluting Intraluminal Devices, Percutaneous Approach (ICD-10-PCS; 2021-06-02)
PROC: 02C13ZZ Extirpation of Matter from Coronary Artery, Two Arteries, Percutaneous Approach (ICD-10-PCS; 2021-06-02)
PROC: B211YZZ Fluoroscopy of Multiple Coronary Arteries using Other Contrast (ICD-10-PCS; 2021-06-02)
DX: T82.855A Stenosis of coronary artery stent, initial encounter (principal); N17.0 Acute kidney failure with tubular necrosis; I21.A1 Myocardial infarction type 2; E44.1 Mild protein-calorie malnutrition; F33.3 Major depressive disorder, recurrent, severe with psychotic symptoms; Z20.822 Contact with and (suspected) exposure to COVID-19; F41.0 Panic disorder [episodic paroxysmal anxiety]; I25.10 Atherosclerotic heart disease of native coronary artery without angina pectoris; Z88.5 Allergy status to narcotic agent; Z88.8 Allergy status to other drugs, medicaments and biological substances; Z79.82 Long term (current) use of aspirin; Z79.899 Other long term (current) drug therapy; E78.5 Hyperlipidemia, unspecified; I25.2 Old myocardial infarction; E11.22 Type 2 diabetes mellitus with diabetic chronic kidney disease; I12.9 Hypertensive chronic kidney disease with stage 1 through stage 4 chronic kidney disease, or unspecified chronic kidney disease; N18.9 Chronic kidney disease, unspecified; D64.9 Anemia, unspecified; I70.0 Atherosclerosis of aorta; Y92.039 Unspecified place in apartment as the place of occurrence of the external cause; Y83.1 Surgical operation with implant of artificial internal device as the cause of abnormal reaction of the patient, or of later complication, without mention of misadventure at the time of the procedure; E27.8 Other specified disorders of adrenal gland
CPT/HCPCS: 36415; 71045-TC; 75574; 80048-TC; 80053-TC; 80061-TC; 82272-TC; 83735-TC; 83880; 84100-TC; 84443-TC; 84484-TC; 85025-TC; 85378-TC; 85730-TC; 87081-TC; 92980; 92981; 93307-TC; 97116-TC; 97530-TC; C1725; C1769; C9803; G0378; G0500; J0360; J1644; J1650; J2060; J2250; J2270; J3010; J3490; J7030; J7040; J7050; Q9967

== ENCOUNTER 2021-06-20 17:07 | Inpatient (IN) | payer MEDICARE ==
[~2021-06-20] VITALS: Ht 172.7 cm; Wt 77.1 kg
[~2021-06-20 17:07] MED LIST changes: +ASPI-1498 PO; +ATOR10TA PO; -CARI350T PO; +CHOL100062 PO; +CLOP75TA15 PO; +DULO60CA45 PO; -HYDR-4384 PO; +METO25TA3 PO; +MULT-447 PO; +POLY15DR40 EACHEYE; +VALS80TA2 PO
--- NOTE | 2021-06-20 17:20 | NUR ---
PER PATIENT, HE GOT AGITATED BECAUSE IT WAS HOT IN HIS APARTMENT. PATIENT A/OX3, BREATHING EVEN AND UNLABORED, PATIENT CALM AND COOPERATIVE AT THIS TIME. DR. FERNANDEZ AT BEDSIDE.
--- NOTE | 2021-06-20 17:30 | NUR ---
[employer] AT BEDSIDE FOR EVAL.
--- NOTE | 2021-06-20 17:40 | NUR ---
CALLED THE [facility] ([phone]) HE STATED HE WAS ALERTED THAT THE PATIENT WAS WALKING NAKED OUTSIDE THE APARTMENT COMPLEX, HE ASSISTED THE PATIENT TO GO BACK INSIDE THE APARTMENT AND THATS WHEN HE SAID HE COULDN'T BREATHE AND STARTED CURSING AND THROWING STUFF TOWARDS HIS AND GRANDSON, NOONE WAS HURT.
--- NOTE | 2021-06-20 17:45 | NUR ---
CALLED [facility] ([phone]) PER , HE WAS JUST RELEASED FROM [place] TODAY, HE WAS THROWING STUFF AROUND THE HOUSE, AND HE HAS BEEN HAVING OUTBURSTS FOR A WHILE, SHE'S REQUESTING FOR A PSYCHIATRIC PLACEMENT. SHE ALSO MENTIONED HE TRIED TO "DRINK A HANDFUL OF UNKNOWN PILLS" SHE DOESN'T KNOW IF HE ACTUALLY TOOK IT BECAUSE HE 'S HAVING A HARD TIME SWALLOWING PILLS.
--- NOTE | 2021-06-20 17:48 | NUR ---
[employer] LEFT, PATIENT IS NOT ON A HOLD. DR. FERNANDEZ MADE AWARE.
--- NOTE | 2021-06-20 18:00 | NUR ---
URINAL PROVIDED AT BEDSIDE.
[2021-06-20 18:32] LABS: BASOPHILS # (AUTO) 0.1 K/uL (0.0-0.2); EOSINOPHILS % (AUTO) 6.9 % (0.0-6.0); HEMATOCRIT 37 % (39-51); HEMOGLOBIN 12.1 g/dL (13.5-17.5); LYMPHOCYTES % (AUTO) 17.1 % (20.0-44.0); MEAN CORPUSCULAR HGB CONC 33 g/dl (31.0-36.0); MEAN CORPUSCULAR VOLUME 97 fL (80-96); MONOCYTES # (AUTO) 0.6 K/uL (0.1-1.30); MONOCYTES % (AUTO) 9.8 % (2.0-12.0); NEUTROPHILS % (AUTO) 65.2 % (43.0-81.0); PLATELET COUNT (AUTO) 189 K/uL (150-450); RED BLOOD CELL COUNT(AUTO) 3.79 MIL/uL (4.5-6.0); WHITE BLOOD COUNT (AUTO) 6.1 K/uL (4.3-11.0)
[2021-06-20 18:49] LABS: ALANINE AMINOTRANSFERASE 38 U/L (12-78); ALBUMIN 3.7 g/dL (3.4-5.0); ALCOHOL, BLOOD < 3 mg/dL (0-0); ALKALINE PHOSPHATASE 79 U/L (46-116); ASPARTATE AMINOTRANSFERASE 22 U/L (15-37); BILIRUBIN,DIRECT 0.1 mg/dL (0.0-0.2); BILIRUBIN,TOTAL 0.3 mg/dL (0.2-1.0); CALCIUM, SERUM 9.5 mg/dL (8.5-10.1); CARBON DIOXIDE 29 mmol/L (21-32); CHLORIDE 104 mmol/L (98-107); CREATININE 1.4 mg/dL (0.6-1.3); GLUCOSE 109 mg/dL (74-106); POTASSIUM 4.7 mmol/L (3.5-5.1); SODIUM SERUM 141 mmol/L (136-145); UREA NITROGEN, BLOOD 30 mg/dL (7-18)
[2021-06-20 18:50] LABS: ACETAMINOPHEN < 0 ug/ml (10-30)
[2021-06-20 18:55] LABS: MAGNESIUM 1.9 mg/dL (1.8-2.4)
[2021-06-20 19:03] LABS: BILIRUBIN,URINE Negative (NEGATIVE); COLOR,URINE YELLOW (YELLOW); LEUKOCYTE ESTERASE ,URINE Negative (NEGATIVE); NITRITE, URINE Negative (NEGATIVE); PH,URINE 8.5 (5.0-8.0); PROTEIN,URINE Negative (NEGATIVE); UGLUCOSE Negative (NEGATIVE); UROBILINOGEN,URINE 0.2 EU/dL (0.2)
--- NOTE | 2021-06-20 19:15 | NUR ---
recieved report from rafael bethea.
[2021-06-20] MEDS ORDERED: IV NS 0.9% 500 ML BAG IV ONE (19:30)
[2021-06-20] MEDS ORDERED: ASPIRIN 81 MG TAB.CHEW PO ONE (19:30)
--- NOTE | 2021-06-20 19:44 | NUR ---
PT ALERT AND ORIENTED X4. AMBULATORY STATES HE " FEELS OKAY AND COMFORTABLE".
--- NOTE | 2021-06-20 20:15 | NUR ---
EMT TECH AT BEDSIDE FOR EKG.
--- NOTE | 2021-06-20 22:10 | NUR ---
PT REQUEST TO USE RESTROOM. V/S STABLE
--- NOTE | 2021-06-20 22:30 | NUR ---
tele [phone]
--- NOTE | 2021-06-20 22:41 | NUR ---
GIVEN REPORT TO KAYLEEN RODRIGES.
--- NOTE | 2021-06-20 23:00 | NUR ---
TELE/RN ADMITTING NOTE RECEIVED REPORT FROM KAYLEEN PINZON. PATIENT ARRIVED TO UNIT AT APPROX. 2300 VIA GURNEY AND 2 STAFF MEMBERS. PATIENT IS BEING ADMITTED FOR ELEVATED TROPONIN LEVEL. PATIENT IS ALERT AND ORIENTED X 3. ABLE TO MAKE NEEDS KNOWN. C/O HEADACHE 01/18. CONTINUES ON ROOM AIR WITH NO S/SX OF RESPIRATORY DISTRESS NOTED. IV ACCESS TO LEFT WRIST #18G INTACT, PATENT AND SALINE LOCKED. PATIENT STATES HE IS INCONTINENT. SKIN CHECK PERFORMED ON ADMISSION WITH NO SKIN ISSUES NOTED. VS ON ADMISSION: BP 145/75 HR 64 RR 20 T 97.5 O2 SAT 100% ON ROOM AIR. PATIENT PLACED ON TELE MONITOR WITH CURRENT READING OF SR 74. PATIENT CURRENTLY REQUESTING ATIVAN FOR PANIC ATTACKS. PATIENT RESTING IN BED, COMFORTABLE, IN NO APPARENT DISTRESS AT THIS TIME. AWAITING ORDERS FROM MD. PATIENT ORIENTED TO ROOM, CALL LIGHT AND UNIT. CALL LIGHT WITHIN REACH. ASPIRATION, FALL AND SAFETY PRECAUTIONS MAINTAINED. WILL CONTINUE TO MONITOR.
[2021-06-20 23:24] VITALS: BP 165/74
[2021-06-20] MEDS ORDERED: ZOLPIDEM TARTRATE 5 MG TABLET PO PRN (23:30)
[2021-06-20] MEDS ORDERED: MAGNESIUM HYDROXIDE 30 ML UDC PO PRN (23:30)
[2021-06-20] MEDS ORDERED: hydrALAZINE HCL 25 MG TABLET PO PRN (23:30)
--- NOTE | 2021-06-20 23:30 | NUR ---
COIN PURSE ASSEMBLER NOTE PATIENT WITH C/O SOB, REQUESTING O2. CURRENT O2 SAT IS 100% ON ROOM AIR. PATIENT STATES HE GETS SOB WITH HIS PANIC ATTACKS. SUPPLIED O2 VIA NC AT 2LPM PRN. WILL ADMINISTER PRN ATIVAN.
[2021-06-20] MEDS: LORAZEPAM INJ 2 MG/ML VIAL IV PRN (23:33)
[2021-06-20] MEDS: ACETAMINOPHEN 325 MG TABLET PO PRN (23:33)
--- NOTE | 2021-06-20 23:40 | NUR ---
TELE/RN NOTE ADMINISTERED PRN ATIVAN FOR C/O INCREASED ANXIETY. ADMINISTERED PRN TYLENOL FOR C/O HEADACHE. PATIENT CURRENTLY RESTING IN BED IN NO APPARENT DISTRESS. WILL CONTINUE TO MONITOR.
[2021-06-21] VITALS (7 sets, daily range): BP systolic 100–145; BP diastolic 51–75
--- NOTE | 2021-06-21 01:04 | NUR ---
TELE/RN NOTE SPOKE TO SHANIQUE ANDREWS [phone]. PROVIDED UPDATE ON PATIENT. CONFIRMED WITH PATIENT IT WAS OK TO ADD FAMILY MEMBER TO CONTACT LIST WITH PATIENT AGREEING.
--- NOTE | 2021-06-21 06:45 | NUR ---
TELE/RN CLOSING NOTE PATIENT CURRENTLY SLEEPING IN BED. ALERT AND ORIENTED X 3. ABLE TO MAKE NEEDS KNOWN. DENIES PAIN AT THIS TIME. CONTINUES ON ROOM AIR WITH NO S/SX OF RESPIRATORY DISTRESS NOTED. IV ACCESS TO LEFT WRIST #18G INTACT, PATENT AND SALINE LOCKED. PATIENT IS AMBULATORY WITH WALKER. CALL LIGHT WITHIN REACH. ASPIRATION, FALL AND SAFETY PRECAUTIONS MAINTAINED. WILL ENDORSE PLAN OF CARE TO ONCOMING SHIFT.
[2021-06-21 06:59] LABS: EOSINOPHILS % (AUTO) 8.1 % (0.0-6.0); HEMATOCRIT 34 % (39-51); HEMOGLOBIN 11.4 g/dL (13.5-17.5); LYMPHOCYTES # (AUTO) 0.9 K/uL (0.8-4.8); LYMPHOCYTES % (AUTO) 21.9 % (20.0-44.0); MEAN CORPUSCULAR HGB CONC 34 g/dl (31.0-36.0); MEAN CORPUSCULAR VOLUME 96 fL (80-96); MONOCYTES # (AUTO) 0.5 K/uL (0.1-1.30); MONOCYTES % (AUTO) 11.5 % (2.0-12.0); NEUTROPHILS # (AUTO) 2.4 K/uL (1.8-8.9); NEUTROPHILS % (AUTO) 57.5 % (43.0-81.0); PLATELET COUNT (AUTO) 194 K/uL (150-450); RED BLOOD CELL COUNT(AUTO) 3.53 MIL/uL (4.5-6.0); WHITE BLOOD COUNT (AUTO) 4.2 K/uL (4.3-11.0)
[2021-06-21 07:14] LABS: ALBUMIN 3.5 g/dL (3.4-5.0); BILIRUBIN,TOTAL 0.4 mg/dL (0.2-1.0); CALCIUM, SERUM 9.3 mg/dL (8.5-10.1); CREATININE 1.3 mg/dL (0.6-1.3); MAGNESIUM 2.1 mg/dL (1.8-2.4); PHOSPHORUS 3.8 mg/dL (2.5-4.9); POTASSIUM 4.6 mmol/L (3.5-5.1); TOTAL PROTEIN, SERUM 6.5 g/dL (6.4-8.2)
[2021-06-21] MEDS: PANTOPRAZOLE 40 MG TABLET.DR PO SCH (07:21)
--- NOTE | 2021-06-21 07:35 | NUR ---
HYDRAULIC REPAIRER OPENING NOTES RECEIVED PATIENT IN BED, ASLEEP, EASILY AWAKEN BY VERBAL AND TACTILE STIMULI. NOT IN ANY FORM OF ACUTE DISTRESS NOTED, ON ROOM AIR, TOLERATING WELL, NO SOB NOTED. ON EXTERNAL MONITOR SHOWING SR WITH BBB, PVC'S HR AT 77, NO COMPLAINTS OF CHEST PAIN AT THIS TIME. IV ACCESS ON LEFT WRIST G#18, INTACT PATENT AND FLUSHES WELL. SAFETY PRECAUTIONS IN PLACE: BED ON LOWEST LOCKED POSITION, SIDE RAILS UP X 2, CALL LIGHT WITHIN EASY REACH. WILL CONTINUE TO MONITOR ACCORDINGLY.
[2021-06-21] MEDS: DOCUSATE SODIUM 100 MG CAPSULE PO SCH ×2 (08:29→17:44)
[2021-06-21] MEDS: ASPIRIN EC 325 MG TABLET.DR PO SCH (08:29)
[2021-06-21] MEDS: MULTIVIT W/MINERALS 1 TAB TABLET PO SCH (08:56)
[2021-06-21] MEDS: CHOLECALCIFEROL 1,000 UNIT TABLET (VIT D3) PO SCH (08:56)
[2021-06-21] MEDS: CLOPIDOGREL BISULFATE 75 MG TABLET PO SCH (08:57)
[2021-06-21] MEDS: METOPROLOL SUCCINATE 25 MG TAB.SR.24H PO SCH (08:57)
[2021-06-21] MEDS: VALSARTAN 80 MG TABLET PO SCH (08:57)
[2021-06-21] MEDS: IV NS 0.9% 1,000 ML IV PRN ×2 (09:28→20:50)
[2021-06-21] MEDS: ACETAMINOPHEN 325 MG TABLET PO PRN (12:34)
[2021-06-21] MEDS: DIVALPROEX SODIUM 125 MG CAP.SPRINK PO SCH ×2 (13:31→17:44)
[2021-06-21] MEDS: ONDANSETRON HCL/PF 4 MG/2 ML VIAL IVP PRN (15:55)
--- NOTE | 2021-06-21 18:41 | NUR ---
RISK INVESTIGATOR CLOSING NOTES PATIENT IN BED, AWAKE, A&O X 3. NOT IN ANY FORM OF ACUTE DISTRESS NOTED, ON ROOM AIR, TOLERATING WELL, NO SOB NOTED. ON EXTERNAL MONITOR SHOWING SR WITH BBB, PVC'S HR AT 70'S, NO COMPLAINTS OF CHEST PAIN AT THIS TIME. IV ACCESS ON LEFT WRIST G#18, INTACT AND PATENT. ONGOING NS 1 L X 100 CC/HR INFUSING WELL. NO S/SX OF INFILTRATION NOTED. SAFETY PRECAUTIONS IN PLACE: BED ON LOWEST LOCKED POSITION, SIDE RAILS UP X 2, CALL LIGHT WITHIN EASY REACH. ALL NEEDS ATTENDED. WILL ENDORSE TO ONCOMING SHIFT FOR SONDRA.
[2021-06-21] MEDS: MORPHINE SULFATE INJ 2 MG/ML DISP.SYRIN IV PRN (20:46)
[2021-06-21] MEDS: ATORVASTATIN 10 MG TABLET PO SCH (22:05)
[2021-06-21] MEDS: LORAZEPAM INJ 2 MG/ML VIAL IV PRN (23:30)
--- NOTE | 2021-06-21 23:30 | NUR ---
MS RN NOTES PT REQUESTED ATIVAN TO CALM HIM DOWN. ATIVAN GIVEN ORDERED. WILL CONTINUE TO MONITOR.
[2021-06-22] VITALS: BP 135/46
[2021-06-22] MEDS: MORPHINE SULFATE INJ 2 MG/ML DISP.SYRIN IV PRN ×4 (03:57→20:18)
--- NOTE | 2021-06-22 03:59 | NUR ---
RN NOTES Complained of abdominal pain- Morphine 2 mg IV given as ordered, V/S stable
[2021-06-22 04:00] VITALS: BP_SYST 129; BP_SYST 138; BP_DIAS 47; BP_DIAS 71
--- NOTE | 2021-06-22 06:40 | NUR ---
OCEAN FREIGHT FORWARDER NOTES AWAKE & RESPONSIVE. NOT IN ANY DISTRESS. NO SOB NOTED. DENIES ANY PAIN OR DISCOMFORT AT THIS TIME. WITH IVF INFUSING WELL. AM CARE DONE. MONITORED ACCORDINGLY. CALL LIGHT WITHIN REACH. BED IN LOWEST POSITION. SR UP X 3 WITH BED ALARM ON FOR SAFETY. WILL ENDORSE TO NEXT SHIFT.
[2021-06-22 07:05] LABS: BASOPHILS % (AUTO) 0.9 % (0.0-2.0); EOSINOPHILS % (AUTO) 6.9 % (0.0-6.0); HEMATOCRIT 35 % (39-51); HEMOGLOBIN 11.5 g/dL (13.5-17.5); LYMPHOCYTES # (AUTO) 0.9 K/uL (0.8-4.8); LYMPHOCYTES % (AUTO) 21.4 % (20.0-44.0); MEAN CORPUSCULAR HGB CONC 33 g/dl (31.0-36.0); MEAN CORPUSCULAR VOLUME 97 fL (80-96); MONOCYTES # (AUTO) 0.6 K/uL (0.1-1.30); MONOCYTES % (AUTO) 13.2 % (2.0-12.0); NEUTROPHILS # (AUTO) 2.5 K/uL (1.8-8.9); NEUTROPHILS % (AUTO) 57.6 % (43.0-81.0); PLATELET COUNT (AUTO) 187 K/uL (150-450); RED BLOOD CELL COUNT(AUTO) 3.57 MIL/uL (4.5-6.0); WHITE BLOOD COUNT (AUTO) 4.4 K/uL (4.3-11.0)
--- NOTE | 2021-06-22 07:20 | NUR ---
RN OPENING NOTE RECEIVED PATIENT IN BED. A/O X3. ON 02 AT 2 LPM VIA NC. NO S/S OF RESPIRATORY DISTRESS. IV ACCESS ON L FA #18 G, INTACT AND PATENT. NS RUNNING @100 ML/HR, INTACT AND PATENT. SAFETY MEASURES MAINTAINED. BED IN LOWEST POSITION, BRAKES LOCKED. SIDE RAILS UP X2. CALL LIGHT WITHIN REACH. WILL CONTINUE PLAN OF CARE.
[2021-06-22 08:00] VITALS: BP 138/73
[2021-06-22 08:08] LABS: ALANINE AMINOTRANSFERASE 44 U/L (12-78); ALBUMIN 3.5 g/dL (3.4-5.0); ALKALINE PHOSPHATASE 66 U/L (46-116); ASPARTATE AMINOTRANSFERASE 22 U/L (15-37); BILIRUBIN,TOTAL 0.2 mg/dL (0.2-1.0); CALCIUM, SERUM 8.8 mg/dL (8.5-10.1); CARBON DIOXIDE 27 mmol/L (21-32); CHLORIDE 107 mmol/L (98-107); CREATININE 1.4 mg/dL (0.6-1.3); GLUCOSE 100 mg/dL (74-106); MAGNESIUM 2.1 mg/dL (1.8-2.4); POTASSIUM 4.5 mmol/L (3.5-5.1); SODIUM SERUM 142 mmol/L (136-145); TOTAL PROTEIN, SERUM 6.7 g/dL (6.4-8.2); UREA NITROGEN, BLOOD 25 mg/dL (7-18)
[2021-06-22] MEDS: ASPIRIN EC 325 MG TABLET.DR PO SCH (08:29)
[2021-06-22] MEDS: MULTIVIT W/MINERALS 1 TAB TABLET PO SCH (08:29)
[2021-06-22] MEDS: CHOLECALCIFEROL 1,000 UNIT TABLET (VIT D3) PO SCH (08:29)
[2021-06-22] MEDS: DIVALPROEX SODIUM 125 MG CAP.SPRINK PO SCH ×3 (08:29→16:59)
[2021-06-22] MEDS: VALSARTAN 80 MG TABLET PO SCH (08:29)
[2021-06-22] MEDS: DOCUSATE SODIUM 100 MG CAPSULE PO SCH ×2 (08:29→16:59)
[2021-06-22] MEDS: PANTOPRAZOLE 40 MG TABLET.DR PO SCH (08:29)
[2021-06-22] MEDS: CLOPIDOGREL BISULFATE 75 MG TABLET PO SCH (08:29)
[2021-06-22] MEDS: METOPROLOL SUCCINATE 25 MG TAB.SR.24H PO SCH (08:29)
[2021-06-22] MEDS: ONDANSETRON HCL/PF 4 MG/2 ML VIAL IVP PRN (09:36)
--- NOTE | 2021-06-22 09:36 | NUR ---
RN NOTE PATIENT FEELING NAUSEOUS. ZOFRAN 4MG/2ML IV PRN GIVEN. WILL CONTINUE TO MONITOR.
[2021-06-22] MEDS: LORAZEPAM INJ 2 MG/ML VIAL IV PRN (12:24)
[2021-06-22 16:00] VITALS: BP 133/64
--- NOTE | 2021-06-22 18:46 | NUR ---
RN CLOSING NOTE PATIENT RESTING IN BED. A/O X3. ON 02 AT 2 LPM VIA NC. NO S/S OF RESPIRATORY DISTRESS. DENIES ANY PAIN OR DISCOMFORT AT THIS TIME. IV ACCESS ON L FA #18 G, INTACT AND PATENT. DUE MEDS GIVEN ORDERED. ALL NEEDS HAVE BEEN MET AND ATTENDED. SAFETY MEASURES MAINTAINED. BED IN LOWEST POSITION, BRAKES LOCKED. SIDE RAILS UP X2. KEPT CALL LIGHT WITHIN REACH. WILL ENDORSE CONTINUITY OF CARE TO ONCOMING SHIFT.
--- NOTE | 2021-06-22 20:02 | NUR ---
RN OPENING NOTES: RECEIVED PATIENT AWAKE IN BED, BED IN LOW POSITION, CALL LIGHTS WITHIN REACH, NO COMPLAIN OF PAIN AND DISCOMFORT AT THIS TIME, PATIENT IS A/O X3 INCONTINENT ON DIAPER, , CARDIAC DIET, PATIENT WITH IV LINE ON LFA #18 SL, PATIENT IS AMBULATORY USING WALKER WITH ASSIST, PATIENT KEPT CLEAN AND DRY, WILL CONTINUE TO MONITOR.
[2021-06-22 20:44] VITALS: BP 135/76
[2021-06-22] MEDS: ATORVASTATIN 10 MG TABLET PO SCH (22:06)
[2021-06-23] MEDS: LORAZEPAM INJ 2 MG/ML VIAL IV PRN (00:51)
[2021-06-23] MEDS: MORPHINE SULFATE INJ 2 MG/ML DISP.SYRIN IV PRN ×2 (06:11→10:59)
--- NOTE | 2021-06-23 06:19 | NUR ---
MS RN CLOSING NOTES: PATIENT SLEEP IN BED COMFORTABLY, AROUSABLE TO VERBAL AND TACTILE STIMULI, BED IN LOW POSITION, CALL LIGHTS WITHIN REACH, NO COMPLAIN OF PAIN AND DISCOMFORT AT THIS TIME WITH IV LINE AT LFA #18 SL PATIENT IS A/O X3 AMBULATORY WITH ASSISTANCE , INCONTINENT, KEPT CLEAN AND DRY, ALL NEEDS MET, ENDORSE TO INCOMING SHIFT.
[2021-06-23 06:54] LABS: CALCIUM, SERUM 9.2 mg/dL (8.5-10.1); CREATININE 1.2 mg/dL (0.6-1.3); POTASSIUM 4.2 mmol/L (3.5-5.1)
[2021-06-23] MEDS: PANTOPRAZOLE 40 MG TABLET.DR PO SCH (07:30)
[2021-06-23 08:00] VITALS: BP 134/77
--- NOTE | 2021-06-23 08:00 | NUR ---
RN OPENING NOTE PT AWAKE IN BED. ON 2L NC O2 WITH NO S/S OF RESPIRATORY DISTRESS. A/O X3 AND AGITATION PRESENT. NO COMPLAINT OF PAIN OR NAUSEA PRESENT. NO SHEET TESTER PRESENT. NO EDEMA PRESENT. PT IS AMBULATORY WITH WALKER AT BEDSIDE. SKIN IS INTACT. IV PRESENT ON L FA 18G AND SALINE LOCKED. LABS AND ORDERS REVIEWED. SAFETY MEASURES IN PLACE. SIDE RAILS RAISED. BED LOWERED. CALL LIGHT WITHIN REACH. WILL CONTINUE TO MONITOR.
--- NOTE | 2021-06-23 08:10 | NUR ---
RN NOTE PT AWAKE IN BED. SCREAMING AND SWEARING AT NURSES. ATTEMPTED TO DEESCALATE. PT STILL CONTINUES TO CURSE. WILL CONTINUE TO MONITOR.
[2021-06-23] MEDS: VALSARTAN 80 MG TABLET PO SCH (08:37)
[2021-06-23] MEDS: DIVALPROEX SODIUM 125 MG CAP.SPRINK PO SCH ×2 (08:37→13:27)
[2021-06-23] MEDS: DOCUSATE SODIUM 100 MG CAPSULE PO SCH (08:37)
[2021-06-23 08:38] VITALS: BP 134/77
[2021-06-23] MEDS: METOPROLOL SUCCINATE 25 MG TAB.SR.24H PO SCH (08:38)
[2021-06-23] MEDS: CHOLECALCIFEROL 1,000 UNIT TABLET (VIT D3) PO SCH (08:38)
[2021-06-23] MEDS: CLOPIDOGREL BISULFATE 75 MG TABLET PO SCH (08:38)
[2021-06-23] MEDS: MULTIVIT W/MINERALS 1 TAB TABLET PO SCH (08:38)
[2021-06-23] MEDS: ASPIRIN EC 325 MG TABLET.DR PO SCH (08:38)
[2021-06-23] MEDS ORDERED: DIVA125C2 PO (09:50)
--- NOTE | 2021-06-23 14:24 | NUR ---
COMPENSATOR WORKER NOTE PT DISCHARGED HOME. PT IN STABLE CONDITION. V/S CHECKED. ID BAND REMOVED. IV LINES REMOVED. EXITCARE EDUCATION UTILIZED AND GIVEN TO PT. PRESCRIPTIONS CHECKED AND GIVEN TO PT. BELONGINGS CHECKED AND GIVEN TO PT. F/U WITH CARDIOLOGY AND BUSINESS CARD OF DR CUTLER GIVEN. PT TRANSPORTED HOME VIA PRIVATE CAR ACCOMPANIED BY SON.
[2021-06-24] MEDS ORDERED: DOCU-141 PO (01:08)
[2021-06-24] MEDS ORDERED: POLY17PO4 PO (01:08)
== END 2021-06-23 14:15 | disposition home or self-care (01) | DRG 280 ==
LOC: ER 17:10 → TELE 22:44 → MED 06-22 08:41
PROVIDERS: ADMIT Internal Medicine
DX: I21.4 Non-ST elevation (NSTEMI) myocardial infarction (principal); N17.0 Acute kidney failure with tubular necrosis; Z20.822 Contact with and (suspected) exposure to COVID-19; I25.10 Atherosclerotic heart disease of native coronary artery without angina pectoris; F32.9 Major depressive disorder, single episode, unspecified; E78.5 Hyperlipidemia, unspecified; I10 Essential (primary) hypertension; E11.9 Type 2 diabetes mellitus without complications; Z88.5 Allergy status to narcotic agent; Z95.5 Presence of coronary angioplasty implant and graft; Z88.8 Allergy status to other drugs, medicaments and biological substances; Z79.02 Long term (current) use of antithrombotics/antiplatelets; Z79.899 Other long term (current) drug therapy; D53.9 Nutritional anemia, unspecified; I25.2 Old myocardial infarction; F41.0 Panic disorder [episodic paroxysmal anxiety]; E55.9 Vitamin D deficiency, unspecified; F10.10 Alcohol abuse, uncomplicated; I27.20 Pulmonary hypertension, unspecified; E27.9 Disorder of adrenal gland, unspecified; F29 Unspecified psychosis not due to a substance or known physiological condition; F25.0 Schizoaffective disorder, bipolar type; F43.10 Post-traumatic stress disorder, unspecified; Z91.410 Personal history of adult physical and sexual abuse; Z62.810 Personal history of physical and sexual abuse in childhood; Z91.5 Personal history of self-harm; Y90.9 Presence of alcohol in blood, level not specified; Z98.890 Other specified postprocedural states
CPT/HCPCS: 36415; 71045-TC; 80048-TC; 80053-TC; 80076-TC; 83540-TC; 83735-TC; 83880; 84100-TC; 84484-TC; 85025-TC; 87081-TC; 97112-TC; 97116-TC; 97530-TC; C9803; G0378; G0480; J2060; J2270; J2405; J7030; J7040

== ENCOUNTER 2021-06-23 22:36 | Emergency (ER) | payer SELFPAY ==
[~2021-06-23] VITALS: Ht 182.9 cm; Wt 76.7 kg
[~2021-06-23 22:36] MED LIST changes: +DIVA125C2 PO
--- NOTE | 2021-06-23 22:50 | NUR ---
BIBRA FROM HOME C/O LUQ PAIN +NAUSEA/-VOMITING X1 DAY. PLACED IN BED 11 ON MONITOR AND PULSE OX. ER MD AT BEDSIDE FOR EVAL. AWAITING ORDERS. NO ACUTE DISTRESS NOTED.
[2021-06-23] MEDS ORDERED: ONDANSETRON HCL/PF 4 MG/2 ML VIAL IVP ONE (23:00)
[2021-06-23] MEDS ORDERED: IV NS 0.9% 500 ML BAG IV ONE (23:00)
[2021-06-23] MEDS ORDERED: ONDANSETRON HCL/PF 4 MG/2 ML VIAL ONE (23:03)
[2021-06-23 23:05] LABS: BASOPHILS % (AUTO) 0.6 % (0.0-2.0); EOSINOPHILS % (AUTO) 2.9 % (0.0-6.0); HEMATOCRIT 39 % (39-51); HEMOGLOBIN 13.1 g/dL (13.5-17.5); LYMPHOCYTES # (AUTO) 0.7 K/uL (0.8-4.8); LYMPHOCYTES % (AUTO) 13.3 % (20.0-44.0); MEAN CORPUSCULAR HGB CONC 34 g/dl (31.0-36.0); MEAN CORPUSCULAR VOLUME 95 fL (80-96); MONOCYTES # (AUTO) 0.5 K/uL (0.1-1.30); MONOCYTES % (AUTO) 9.5 % (2.0-12.0); NEUTROPHILS # (AUTO) 3.6 K/uL (1.8-8.9); NEUTROPHILS % (AUTO) 73.7 % (43.0-81.0); PLATELET COUNT (AUTO) 208 K/uL (150-450); WHITE BLOOD COUNT (AUTO) 4.9 K/uL (4.3-11.0)
--- NOTE | 2021-06-23 23:10 | NUR ---
PATIENT TAKEN TO CT
[2021-06-23 23:15] LABS: CALCIUM, SERUM 9.4 mg/dL (8.5-10.1); CARBON DIOXIDE 27 mmol/L (21-32); CHLORIDE 101 mmol/L (98-107); CREATININE 1.4 mg/dL (0.6-1.3); GLUCOSE 134 mg/dL (74-106); POTASSIUM 4.5 mmol/L (3.5-5.1); SODIUM SERUM 138 mmol/L (136-145); UREA NITROGEN, BLOOD 28 mg/dL (7-18)
[2021-06-23 23:31] LABS: ALANINE AMINOTRANSFERASE 55 U/L (12-78); ALBUMIN 3.8 g/dL (3.4-5.0); ALKALINE PHOSPHATASE 76 U/L (46-116); ASPARTATE AMINOTRANSFERASE 25 U/L (15-37); BILIRUBIN,DIRECT 0.1 mg/dL (0.0-0.2); BILIRUBIN,TOTAL 0.3 mg/dL (0.2-1.0); TOTAL PROTEIN, SERUM 7.5 g/dL (6.4-8.2)
[2021-06-24] MEDS ORDERED: ASPIRIN 325 MG TABLET PO ONE
[2021-06-24] MEDS ORDERED: ASPIRIN 325 MG TABLET ONE (00:23)
--- NOTE | 2021-06-24 00:32 | NUR ---
PT ASKED FOR MOUTH WASH. GIVEN MOUTH WASH, VSS. STATED HE IS THANKFUL TO HAVE DARRYL BEYER A NURSE.
[2021-06-24 01:04] LABS: BILIRUBIN,URINE Negative (NEGATIVE); COLOR,URINE YELLOW (YELLOW); LEUKOCYTE ESTERASE ,URINE Negative (NEGATIVE); NITRITE, URINE Negative (NEGATIVE); PH,URINE 8.5 (5.0-8.0); PROTEIN,URINE Negative (NEGATIVE); UGLUCOSE Negative (NEGATIVE)
[2021-06-24] MEDS ORDERED: POLY17PO4 PO (01:08)
[2021-06-24] MEDS ORDERED: DOCU-141 PO (01:08)
--- NOTE | 2021-06-24 01:45 | NUR ---
CALLED PT APOLLO , NO ANSWER AT THIS TIME
--- NOTE | 2021-06-24 02:14 | NUR ---
SPOKE WITH PT SON DARRYL , WILL SUPPLY CHAIN TECHNICIAN PT ETA 1 HOUR
--- NOTE | 2021-06-24 02:14 | NUR ---
son called. Eta for pickup is 1hr
[2021-06-24] MEDS ORDERED: LORAZEPAM INJ 2 MG/ML VIAL ONE (02:21)
[2021-06-24] MEDS ORDERED: LORAZEPAM INJ 2 MG/ML VIAL IV ONE (02:30)
--- NOTE | 2021-06-24 03:26 | NUR ---
SON ARRIVED TO THE ED. PT IV REMOVED, WHEELED OUT OF THE ED. PICKED UP BY SON. VSS. NO ACUTE DISTRESS NOTED.
--- NOTE | 2021-06-24 03:27 | NUR ---
Patient discharged to home in stable condition. Rx and Written and verbal after care instructions given. Patient verbalizes understanding of instruction.
[2021-06-24 03:37] VITALS: BP 144/84
== END 2021-06-24 03:28 | disposition home or self-care (01) ==
LOC: ER 22:40
DX: R77.8 Other specified abnormalities of plasma proteins (principal); K59.00 Constipation, unspecified; I45.10 Unspecified right bundle-branch block; I10 Essential (primary) hypertension; E11.9 Type 2 diabetes mellitus without complications; Z90.89 Acquired absence of other organs; Z95.5 Presence of coronary angioplasty implant and graft; Z88.5 Allergy status to narcotic agent; Z88.8 Allergy status to other drugs, medicaments and biological substances; Z79.82 Long term (current) use of aspirin; Z79.899 Other long term (current) drug therapy
CPT/HCPCS: 36415; 71045; 74176; 80048; 80076; 81003; 83880; 84484; 85025; 85730; 93005; 96374; 96375; 99285; J2060; J2405

== ENCOUNTER 2021-09-23 11:16 | Inpatient (IN) | payer MEDICARE ==
[~2021-09-23] VITALS: Ht 182.9 cm; Wt 74.4 kg
[~2021-09-23 11:16] MED LIST changes: +DOCU-141 PO; -DULO60CA45 PO; +POLY17PO4 PO
[2021-09-23] MEDS ORDERED: IV NS 0.9% 1,000 ML BAG IV ONE (11:30)
--- NOTE | 2021-09-23 11:31 | NUR ---
[id number] FROM HOME C/O "WEAKNESS" S/P GETTIING STUCK ON A RECLINER CHAIR PER EMS HYPOTENSIVE AT FIELD. IVNS 500 GIVEN VIDEO PRODUCTION ASSISTANT. THE PATIENT IS ALERT AND ORIENTED X3. DENIES PAIN. IN ROOM AIR AND DENIES SOB. RESPIRATION REGULAR AND UNLABORED. THE PATIENT IS ATTACHED TO THE MONITOR. WARM BLANKET PROVIDED FOR COMFORT. WILL CONTINUE TO MONITOR THE PATIENT.
[2021-09-23 11:38] LABS: BASOPHILS # (AUTO) 0.1 K/uL (0.0-0.2); BASOPHILS % (AUTO) 1.5 % (0.0-2.0); EOSINOPHILS % (AUTO) 5.6 % (0.0-6.0); HEMATOCRIT 30 % (39-51); HEMOGLOBIN 10.2 g/dL (13.5-17.5); LYMPHOCYTES # (AUTO) 1.6 K/uL (0.8-4.8); LYMPHOCYTES % (AUTO) 36.8 % (20.0-44.0); MEAN CORPUSCULAR HGB CONC 34 g/dl (31.0-36.0); MEAN CORPUSCULAR VOLUME 95 fL (80-96); MONOCYTES # (AUTO) 0.5 K/uL (0.1-1.30); NEUTROPHILS % (AUTO) 45.1 % (43.0-81.0); PLATELET COUNT (AUTO) 192 K/uL (150-450); RED BLOOD CELL COUNT(AUTO) 3.14 MIL/uL (4.5-6.0); WHITE BLOOD COUNT (AUTO) 4.4 K/uL (4.3-11.0)
--- NOTE | 2021-09-23 11:44 | NUR ---
TAKEN TO CT
[2021-09-23 11:47] LABS: BILIRUBIN,URINE Negative (NEGATIVE); COLOR,URINE YELLOW (YELLOW); LEUKOCYTE ESTERASE ,URINE Negative (NEGATIVE); NITRITE, URINE Negative (NEGATIVE); PH,URINE 8.5 (5.0-8.0); PROTEIN,URINE Negative (NEGATIVE); UGLUCOSE Negative (NEGATIVE); UROBILINOGEN,URINE 0.2 EU/dL (0.2)
[2021-09-23 11:53] LABS: ALANINE AMINOTRANSFERASE 40 U/L (12-78); ALBUMIN 3.6 g/dL (3.4-5.0); ALKALINE PHOSPHATASE 69 U/L (46-116); ASPARTATE AMINOTRANSFERASE 21 U/L (15-37); BILIRUBIN,DIRECT 0.1 mg/dL (0.0-0.2); BILIRUBIN,TOTAL 0.2 mg/dL (0.2-1.0); CALCIUM, SERUM 8.9 mg/dL (8.5-10.1); CARBON DIOXIDE 27 mmol/L (21-32); CHLORIDE 106 mmol/L (98-107); CREATININE 1.5 mg/dL (0.6-1.3); GLUCOSE 88 mg/dL (74-106); POTASSIUM 4.2 mmol/L (3.5-5.1); SODIUM SERUM 144 mmol/L (136-145); TOTAL PROTEIN, SERUM 6.6 g/dL (6.4-8.2); UREA NITROGEN, BLOOD 26 mg/dL (7-18)
--- NOTE | 2021-09-23 11:57 | NUR ---
BACK FROM CT
--- NOTE | 2021-09-23 12:37 | NUR ---
COVID SWAB DONE AND SENT TO THE LAB
--- NOTE | 2021-09-23 12:56 | NUR ---
MOVE SHEET SUBMITTED.
--- NOTE | 2021-09-23 13:50 | NUR ---
GOT BED 311
--- NOTE | 2021-09-23 14:00 | NUR ---
REPORT GIVEN TO NURSE ALEE
--- NOTE | 2021-09-23 15:15 | NUR ---
ASPIRIN 81 MG NOT GIVEN DUE TO PATIENT FAILED SWALLOW EVAL. DR MARAVILLA AWARE.
[2021-09-23] MEDS ORDERED: ASPIRIN 81 MG TAB.CHEW PO SCH (15:30)
[2021-09-23] MEDS ORDERED: ASPIRIN 81 MG TAB.CHEW ONE (15:38)
--- NOTE | 2021-09-23 15:45 | NUR ---
THE PATIENT IS TRANSFERED TO [facility] IN STABLE CONDITION.
[2021-09-23 16:00] VITALS: BP 159/80
--- NOTE | 2021-09-23 16:00 | NUR ---
HOUSE SUPERVISOR ADMITTING NOTES RECEIVED PATIENT FROM [facility]. PATIENT IS AWAKE, A&O X 3, WITH PERIODS OF FORGETFULNESS NOTED. ABLE TO MAKE NEEDS KNOWN. VITAL SIGNS TAKEN AND RECORDED. IV ACCESS ON RIGHT FA G#20, PATENT AND FLUSHES WELL, STARTED AN IVF OF D5 1/2 NS AT 75 CC/HR ORDERED. HOOKED TO TELE MONITOR SHOWING NSR HR AT 70'S. IN NO ACUTE DISTRESS NOTED. ON RA TOLERATING WELL. NO S/SX OF RESPIRATORY DISTRESS NOTED. NOTED WITH SACRAL REDNESS, PICTURE TAKEN AND FILED TO CHART. SAFETY PRECAUTIONS IN PLACE: BED ON LOWEST LOCKED POSITION, SIDE RAILS UP X 2, CALL LIGHT WITHIN EASY REACH. WILL CONTINUE TO MONITOR ACCORDINGLY.
[2021-09-23 16:30] VITALS: BP 159/80
[2021-09-23] MEDS ORDERED: HYDROCODONE/APAP 5/325MG TABLET PO PRN (16:30)
[2021-09-23] MEDS ORDERED: MAGNESIUM HYDROXIDE 30 ML UDC PO PRN (16:30)
[2021-09-23] MEDS ORDERED: Z GUARD REMEDY 2 OZ OINT TP PRN (16:30)
[2021-09-23] MEDS ORDERED: MAG HYDROX/AL HYDROX/SIMETH 30 ML UDC PO PRN (16:30)
[2021-09-23] MEDS ORDERED: ONDANSETRON HCL/PF 4 MG/2 ML VIAL IVP PRN (16:30)
[2021-09-23] MEDS ORDERED: HYDROCODONE/APAP 10/325MG TABLET PO PRN (16:30)
[2021-09-23] MEDS ORDERED: POLYVINYL ALCOHOL 15 ML BOTTLE OP PRN (16:30)
[2021-09-23] MEDS: IV D5/0.45 NACL 1,000 ML IV PRN (16:47)
[2021-09-23] MEDS: DOCUSATE SODIUM 100 MG CAPSULE PO SCH (17:01)
[2021-09-23] MEDS: DIVALPROEX SODIUM 125 MG CAP.SPRINK PO SCH (17:01)
[2021-09-23] MEDS: ENOXAPARIN SODIUM 40 MG/0.4 ML DISP.SYRIN SQ SCH (17:05)
--- NOTE | 2021-09-23 18:41 | NUR ---
DEBT MANAGEMENT COUNSELOR CLOSING NOTES PATIENT IS AWAKE, A&O X 3, WITH PERIODS OF FORGETFULNESS NOTED. IV ACCESS ON RIGHT FA G#20, PATENT AND FLUSHES WELL, ONGOING IVF OF D5 1/2 NS AT 75 CC/HR ORDERED. ON TELE MONITOR SHOWING NSR HR AT 70'S. IN NO ACUTE DISTRESS NOTED. ON RA TOLERATING WELL. NO S/SX OF RESPIRATORY DISTRESS NOTED. SAFETY PRECAUTIONS IN PLACE: BED ON LOWEST LOCKED POSITION, SIDE RAILS UP X 2, CALL LIGHT WITHIN EASY REACH. ALL NEEDS ATTENDED AND MET, ALL DUE MEDS GIVEN ORDERED. WILL ENDORSE TO ONCOMING SHIFT FOR SONDRA.
--- NOTE | 2021-09-23 19:35 | NUR ---
HISTOLOGIST TECHNOLOGIST OPENING NOTES PATIENT IS AWAKE, A&O X 3, WITH PERIODS OF FORGETFULNESS NOTED. IV ACCESS ON RIGHT FA G#20, INTACT AND PATENT AND FLUSHES WELL, ONGOING IVF OF D5 1/2 NS AT 75 CC/HR ORDERED. ON TELE MONITOR SHOWING NSR HR AT 70'S. IN NO APPARENT DISTRESS NOTED, BREATHING EVEN AND UNLABORED, ON RA TOLERATING WELL. NO S/SX OF RESPIRATORY DISTRESS NOTED. SAFETY PRECAUTIONS IN PLACE: BED ON LOWEST LOCKED POSITION, SIDE RAILS UP X 2, CALL LIGHT WITHIN EASY REACH. WILL CONTINUE TO MONITOR PATIENT ACCORDINGLY.
[2021-09-23 20:00] VITALS: BP 158/73
[2021-09-23] MEDS: TRAMADOL HCL 50 MG TABLET PO PRN (22:13)
--- NOTE | 2021-09-23 22:15 | NUR ---
RN NOTES PATIENT C/O ABDOMINAL PAIN 07/21, PRN ULTRAM GIVEN ORDERED. WILL CONTINUE TO MONITOR PT.
--- NOTE | 2021-09-23 23:49 | NUR ---
RN NOTES Patient was screaming and saying bad words to the staff , got an order of Ativan 1mg IV PRN from Dr. Lujan ,order noted and carried out
--- NOTE | 2021-09-24 01:55 | NUR ---
RN NOTES Pt. asked for sleeping pill- Ambien 5 mg po given as ordered, V/S stable
[2021-09-24] MEDS: ZOLPIDEM TARTRATE 5 MG TABLET PO PRN (01:59)
[2021-09-24] MEDS: IV D5/0.45 NACL 1,000 ML IV PRN (04:31)
--- NOTE | 2021-09-24 06:27 | NUR ---
SAUSAGE MIXER CLOSING NOTES PATIENT IS AWAKE, A&O X 3, WITH PERIODS OF FORGETFULNESS NOTED. IV ACCESS ON RIGHT FA G#20, INTACT AND PATENT AND FLUSHES WELL, ONGOING IVF OF D5 1/2 NS AT 75 CC/HR ORDERED. ON TELE MONITOR SHOWING NSR HR AT 70'S. IN NO APPARENT DISTRESS NOTED, BREATHING EVEN AND UNLABORED, ON RA TOLERATING WELL. NO S/SX OF RESPIRATORY DISTRESS NOTED. BREATHING EVEN AND UNLABORED. ALL NEEDS ATTENDED AND MET. SAFETY PRECAUTIONS IN PLACE: BED ON LOWEST LOCKED POSITION, SIDE RAILS UP X 2, CALL LIGHT WITHIN EASY REACH. WILL ENDORSED PATIENT TO DAY SHIFT NURSE FOR SONDRA .
[2021-09-24 06:28] LABS: BASOPHILS % (AUTO) 1.2 % (0.0-2.0); HEMATOCRIT 32 % (39-51); LYMPHOCYTES # (AUTO) 1.6 K/uL (0.8-4.8); LYMPHOCYTES % (AUTO) 39.7 % (20.0-44.0); MEAN CORPUSCULAR HGB CONC 35 g/dl (31.0-36.0); MEAN CORPUSCULAR VOLUME 96 fL (80-96); MONOCYTES # (AUTO) 0.4 K/uL (0.1-1.30); MONOCYTES % (AUTO) 9.3 % (2.0-12.0); NEUTROPHILS # (AUTO) 1.7 K/uL (1.8-8.9); NEUTROPHILS % (AUTO) 42.8 % (43.0-81.0); PLATELET COUNT (AUTO) 190 K/uL (150-450); RED BLOOD CELL COUNT(AUTO) 3.33 MIL/uL (4.5-6.0); WHITE BLOOD COUNT (AUTO) 3.9 K/uL (4.3-11.0)
[2021-09-24 07:10] LABS: CALCIUM, SERUM 8.9 mg/dL (8.5-10.1); PHOSPHORUS 3.8 mg/dL (2.5-4.9); POTASSIUM 4.1 mmol/L (3.5-5.1)
--- NOTE | 2021-09-24 07:30 | NUR ---
ENVIRONMENTAL SERVICES ATTENDANT OPENING NOTES RECEIVED PATIENT IN BED, ASLEEP, EASILY AWAKEN BY VERBAL AND TACTILE STIMULI. NOT IN ANY FORM OF ACUTE DISTRESS NOTED. IV ACCESS ON RIGHT FA G#20, PATENT AND FLUSHES WELL, ONGOING IVF OF D5 1/2 NS AT 75 CC/HR ORDERED. ON TELE MONITOR SHOWING NSR HR AT 90'S. ON RA TOLERATING WELL. NO S/SX OF RESPIRATORY DISTRESS NOTED. SAFETY PRECAUTIONS IN PLACE: BED ON LOWEST LOCKED POSITION, SIDE RAILS UP X 2, CALL LIGHT WITHIN EASY REACH. WILL CONTINUE TO MONITOR ACCORDINGLY.
[2021-09-24] MEDS: PANTOPRAZOLE 40 MG TABLET.DR PO SCH (07:42)
[2021-09-24 08:00] VITALS: BP 145/78
[2021-09-24] MEDS: ASPIRIN EC 81 MG TABLET.DR PO SCH (08:28)
[2021-09-24] MEDS: ATORVASTATIN 10 MG TABLET PO SCH (08:28)
[2021-09-24] MEDS: DOCUSATE SODIUM 100 MG CAPSULE PO SCH ×2 (08:28→16:33)
[2021-09-24] MEDS: CLOPIDOGREL BISULFATE 75 MG TABLET PO SCH (08:28)
[2021-09-24] MEDS: CHOLECALCIFEROL 1,000 UNIT TABLET (VIT D3) PO SCH (08:28)
[2021-09-24] MEDS: DIVALPROEX SODIUM 125 MG CAP.SPRINK PO SCH ×3 (08:28→16:33)
[2021-09-24] MEDS: MULTIVITAMINS,THERAGRAN 1 UDTAB TABLET PO SCH (08:28)
[2021-09-24] MEDS: POLYETHYLENE GLYCOL 3350 17 GM POWD.PACK PO SCH (08:28)
[2021-09-24] MEDS: VALSARTAN 80 MG TABLET PO SCH (08:29)
[2021-09-24] MEDS ORDERED: METOPROLOL SUCCINATE 25 MG TAB.SR.24H PO ONE (08:53)
[2021-09-24] MEDS ORDERED: METOPROLOL SUCCINATE 25 MG TAB.SR.24H PO SCH ×2 (09:00)
[2021-09-24] MEDS: LORAZEPAM INJ 2 MG/ML VIAL IV PRN (14:30)
--- NOTE | 2021-09-24 14:31 | NUR ---
RN NOTES PATIENT NOTED WITH ANXIOUSNESS, STARTED SHOUTING AND CURSING TO STAFF. PRN ATIVAN GIVEN ORDERED.
--- NOTE | 2021-09-24 18:38 | NUR ---
AED TRAINER CLOSING NOTES PATIENT IN BED, AWAKE, A&O X 3, PATIENT IS CALM AT THIS TIME. NOT IN ANY FORM OF ACUTE DISTRESS NOTED. IV ACCESS ON RIGHT FA G#20, PATENT AND FLUSHES WELL, ON TELE MONITOR SHOWING NSR HR AT 70'S. ON RA TOLERATING WELL. NO S/SX OF RESPIRATORY DISTRESS NOTED. SAFETY PRECAUTIONS IN PLACE: BED ON LOWEST LOCKED POSITION, SIDE RAILS UP X 2, CALL LIGHT WITHIN EASY REACH. ALL NEEDS ATTENDED AND MET. DUE MEDS GIVEN ORDERED. WILL ENDORSE TO ONCOMING SHIFT FOR SONDRA.
--- NOTE | 2021-09-24 19:35 | NUR ---
RN NOTES Received patient awake on his bed, a/ox2-3, Dr Sanz just came and talked to the patient, denies pain, no SOB, call light within reach, siderailsupx2, will continue to monitor
[2021-09-24] MEDS: clonazePAM 0.5 MG TABLET PO SCH (19:43)
[2021-09-24 20:00] VITALS: BP 111/56
[2021-09-24] MEDS: MIRTAZAPINE 15 MG TABLET PO SCH (21:03)
[2021-09-24] MEDS: ENOXAPARIN SODIUM 40 MG/0.4 ML DISP.SYRIN SQ SCH (21:04)
[2021-09-25] VITALS: BP 150/65
[2021-09-25] MEDS: TRAMADOL HCL 50 MG TABLET PO PRN (02:24)
--- NOTE | 2021-09-25 02:29 | NUR ---
RN NOTES Complained of back pain- Ultram 1 tab po given as ordered, V/S stable
[2021-09-25 05:00] VITALS: BP 135/62
--- NOTE | 2021-09-25 06:26 | NUR ---
RN NOTES Sleeping but arousable, not in distress, no pain noted, morning care rendered, call light within reach, zainabupx2, pt. needs attended
[2021-09-25 06:28] LABS: CALCIUM, SERUM 9.4 mg/dL (8.5-10.1); POTASSIUM 4.2 mmol/L (3.5-5.1)
[2021-09-25 06:29] LABS: BASOPHILS % (AUTO) 0.9 % (0.0-2.0); EOSINOPHILS % (AUTO) 6.5 % (0.0-6.0); HEMATOCRIT 36 % (39-51); LYMPHOCYTES # (AUTO) 1.5 K/uL (0.8-4.8); LYMPHOCYTES % (AUTO) 35.4 % (20.0-44.0); MEAN CORPUSCULAR HGB CONC 34 g/dl (31.0-36.0); MEAN CORPUSCULAR VOLUME 96 fL (80-96); MONOCYTES # (AUTO) 0.4 K/uL (0.1-1.30); MONOCYTES % (AUTO) 8.9 % (2.0-12.0); NEUTROPHILS # (AUTO) 2.1 K/uL (1.8-8.9); NEUTROPHILS % (AUTO) 48.3 % (43.0-81.0); PLATELET COUNT (AUTO) 203 K/uL (150-450); RED BLOOD CELL COUNT(AUTO) 3.72 MIL/uL (4.5-6.0); WHITE BLOOD COUNT (AUTO) 4.3 K/uL (4.3-11.0)
--- NOTE | 2021-09-25 07:47 | NUR ---
MS RN OPENING NOTE PATIENT RECEIVED ASLEEP IN BED. PATIENT IS ON ROOM AIR. NON-LABORED BREATHING; NO S/S OF DISTRESS; NO S/S OF PAIN AT THIS TIME; RFA #18 G PRESENT AND INTACT SL; SAFETY PRECAUTIONS IN PLACE, BED IN LOWEST POSITION AND LOCKED, RAILS UP x2. CALL LIGHT WITHIN REACH. WILL CONTINUE TO MONITOR PATIENT.
[2021-09-25 08:00] VITALS: BP 158/94
[2021-09-25] MEDS: DIVALPROEX SODIUM 125 MG CAP.SPRINK PO SCH ×3 (08:46→16:21)
[2021-09-25] MEDS: CHOLECALCIFEROL 1,000 UNIT TABLET (VIT D3) PO SCH (08:47)
[2021-09-25] MEDS: MULTIVITAMINS,THERAGRAN 1 UDTAB TABLET PO SCH (08:47)
[2021-09-25] MEDS: CLOPIDOGREL BISULFATE 75 MG TABLET PO SCH (08:47)
[2021-09-25] MEDS: ASPIRIN EC 81 MG TABLET.DR PO SCH (08:47)
[2021-09-25] MEDS: METOPROLOL SUCCINATE 25 MG TAB.SR.24H PO SCH (08:48)
[2021-09-25] MEDS: VALSARTAN 80 MG TABLET PO SCH (08:49)
[2021-09-25] MEDS: DOCUSATE SODIUM 100 MG CAPSULE PO SCH ×2 (08:49→16:20)
[2021-09-25] MEDS: ATORVASTATIN 10 MG TABLET PO SCH (08:49)
[2021-09-25] MEDS: PANTOPRAZOLE 40 MG TABLET.DR PO SCH (08:49)
[2021-09-25] MEDS: clonazePAM 0.5 MG TABLET PO SCH ×2 (08:50→19:38)
[2021-09-25] MEDS: POLYETHYLENE GLYCOL 3350 17 GM POWD.PACK PO SCH (08:50)
[2021-09-25] MEDS: LORAZEPAM INJ 2 MG/ML VIAL IV PRN (13:03)
[2021-09-25 16:20] VITALS: BP 139/74
--- NOTE | 2021-09-25 18:56 | NUR ---
MS RN CLOSING NOTE PATIENT RESTING, SLEEPY IN BED. PATIENT WAS ABLE TO HAVE CONTACT WITH PER PHONE. BREATHING IS SYMMETRICAL AND SHOWING NO S/S OF DISTRESS; IV RFA #18 G SL PATENT; ALL NEEDS ATTENDED DURING THE DAY; PER SAFETY MEASURES, BED IS LOCKED, AT LOWEST POSITION, WITH RAILS UP X2. WILL ENDORSE PATIENT TO NEXT SHIFT FOR SONDRA.
--- NOTE | 2021-09-25 19:59 | NUR ---
MS RN OPENING NOTES RECEIVED PT IN BED, ASLEEP, AWAKENS TO VERBAL STIMULI. AOx2-3. ON RA AND TOLERATING WELL. NO SOB NOTED. NO S/SX OF RESPIRATORY DISTRESS NOTED. IV ACCESS IN RFA #18. IV IS INTACT, PATENT, AND FLUSHING WELL. SAFETY PRECAUTIONS IN PLACE: BED IN LOWEST, LOCKED POSITION, SIDERAILS UPx2, AND BRAKES ON. TABLE AND CALL LIGHT WITHIN REACH. WILL CONTINUE TO MONITOR.
[2021-09-25 20:00] VITALS: BP 104/64
[2021-09-25] MEDS: MIRTAZAPINE 15 MG TABLET PO SCH (21:15)
[2021-09-25] MEDS: ENOXAPARIN SODIUM 40 MG/0.4 ML DISP.SYRIN SQ SCH (21:17)
[2021-09-25 22:22] VITALS: BP 104/64
[2021-09-26] MEDS: TRAMADOL HCL 50 MG TABLET PO PRN ×2 (00:41→09:03)
--- NOTE | 2021-09-26 00:41 | NUR ---
ADMINISTERED TRAMADOL FOR PAIN PER MD ORDER. VS WNL. WILL CONTINUE TO MONITOR.
--- NOTE | 2021-09-26 06:41 | NUR ---
MS RN CLOSING NOTES PT IN BED, ASLEEP, AWAKENS TO VERBAL STIMULI. AOx2-3. ON RA AND TOLERATING WELL. NO SOB NOTED. NO S/SX OF RESPIRATORY DISTRESS NOTED. IV ACCESS IN RFA #18. IV IS INTACT, PATENT, AND FLUSHING WELL. ALL NEEDS MET. PT KEPT CLEAN AND DRY. SAFETY PRECAUTIONS IN PLACE: BED IN LOWEST, LOCKED POSITION, SIDERAILS UPx2, AND BRAKES ON. TABLE AND CALL LIGHT WITHIN REACH. WILL ENDORSE TO ONCOMING SHIFT FOR SONDRA.
[2021-09-26] MEDS: PANTOPRAZOLE 40 MG TABLET.DR PO SCH (07:30)
--- NOTE | 2021-09-26 08:00 | NUR ---
RN OPENING NOTE PT RESTING IN BED ASLEEP. A/O X 3 AND MAURITANIAN SPEAKING. COMPLAINT OF PAIN, PAIN MEDS KINDER TEACHER PER PROTOCOL. NO COMPLAINT OF NAUSEA. NO POCKET CLOSER PRESENT. NO EDEMA PRESENT. INCONTINENCE NOTED, DIAPER PRESENT. ON BEDREST. IV PRESENT ON R FA 20G AND FLUSHES WELL. LABS AND ORDERS REVIEWED. SAFETY MEASURES IN PLACE. SIDE RAILS RAISED. BED LOWERED. CALL LIGHT WITHIN REACH. WILL CONTINUE TO MONITOR.
[2021-09-26] MEDS: ASPIRIN EC 81 MG TABLET.DR PO SCH (08:52)
[2021-09-26] MEDS: clonazePAM 0.5 MG TABLET PO SCH ×2 (08:52→19:26)
[2021-09-26] MEDS: CHOLECALCIFEROL 1,000 UNIT TABLET (VIT D3) PO SCH (08:52)
[2021-09-26] MEDS: MULTIVITAMINS,THERAGRAN 1 UDTAB TABLET PO SCH (08:52)
[2021-09-26] MEDS: DIVALPROEX SODIUM 125 MG CAP.SPRINK PO SCH ×3 (08:52→16:59)
[2021-09-26] MEDS: METOPROLOL SUCCINATE 25 MG TAB.SR.24H PO SCH ×2 (08:53→17:03)
[2021-09-26] MEDS: CLOPIDOGREL BISULFATE 75 MG TABLET PO SCH (08:53)
[2021-09-26] MEDS: DOCUSATE SODIUM 100 MG CAPSULE PO SCH ×2 (08:53→17:00)
[2021-09-26] MEDS: POLYETHYLENE GLYCOL 3350 17 GM POWD.PACK PO SCH (08:54)
[2021-09-26] MEDS: VALSARTAN 80 MG TABLET PO SCH (08:54)
[2021-09-26] MEDS: ATORVASTATIN 10 MG TABLET PO SCH (08:54)
[2021-09-26 09:24] VITALS: BP 152/63
[2021-09-26] MEDS: ACETAMINOPHEN 325 MG TABLET PO PRN (13:02)
[2021-09-26 16:00] VITALS: BP 138/47
--- NOTE | 2021-09-26 16:50 | NUR ---
RN NOTE PT DISCHARGED TO [facility]. REPORT GIVEN TO RHETT BEEYR FOR SONDRA
--- NOTE | 2021-09-26 19:10 | NUR ---
RN NOTE PT REFUSING DISCHARGE. CN AWARE. SECURITY CALLED. PT STILL REFUSING DISCHARGE. EDUCATION GIVEN TO PT. PT SAYING THAT HE NEEDS TO GO HOME BECAUSE HE IS THE ONLY ONE TO TAKE CARE OF HER. PT STILL UNSTEADY IN GAIT. DECISION MADE TO KEEP PT FOR NIGHT FOR SAFETY MEASURES. WILL CONTINUE TO MONITOR. WILL GIVE REPORT TO NIGHT NURSE FOR SONDRA.
--- NOTE | 2021-09-26 19:30 | NUR ---
MS RN OPENING NOTES: RECEIVED PATIENT IN BED, AWAKE, A/O X2-3. NO S/S OF DISTRESS NOTED. NO COMPLAIN OF PAIN. CALL LIGHT WITHIN REACH. BED ALARM ON. BED IN LOWEST AND LOCKED POSITION. HOB ELEVATED. PATIENT IS IRRITABLE AT THIS TIME.
[2021-09-26 20:00] VITALS: BP 145/81
--- NOTE | 2021-09-26 20:25 | NUR ---
RECEIVED A CALL FROM PATIENT'S STATING THAT SHE DOES NOT WANT HER TO BE D/C TO SNF, SHE WANTS TO HOME, ADVISED THAT IT WILL BE RELAYED TOMORROW TO THE DAYSHIFT RN, CHARGE NURSE SYED SUTHERLAND. ADVISED TO FOLLOW UP TOMORROW AM, VERBALIZED UNDERSTANDING.
[2021-09-26] MEDS: ENOXAPARIN SODIUM 40 MG/0.4 ML DISP.SYRIN SQ SCH ×2 (21:00→21:29)
[2021-09-26] MEDS: MIRTAZAPINE 15 MG TABLET PO SCH ×2 (21:28→21:32)
[2021-09-26] MEDS: ZOLPIDEM TARTRATE 5 MG TABLET PO PRN (22:55)
[2021-09-27] MEDS: TRAMADOL HCL 50 MG TABLET PO PRN (05:36)
[2021-09-27 06:30] LABS: BASOPHILS % (AUTO) 0.9 % (0.0-2.0); EOSINOPHILS % (AUTO) 4.6 % (0.0-6.0); HEMATOCRIT 37 % (39-51); HEMOGLOBIN 12.4 g/dL (13.5-17.5); LYMPHOCYTES # (AUTO) 1.7 K/uL (0.8-4.8); LYMPHOCYTES % (AUTO) 36.6 % (20.0-44.0); MEAN CORPUSCULAR HGB CONC 34 g/dl (31.0-36.0); MEAN CORPUSCULAR VOLUME 97 fL (80-96); MONOCYTES # (AUTO) 0.4 K/uL (0.1-1.30); MONOCYTES % (AUTO) 9.7 % (2.0-12.0); NEUTROPHILS # (AUTO) 2.2 K/uL (1.8-8.9); NEUTROPHILS % (AUTO) 48.2 % (43.0-81.0); PLATELET COUNT (AUTO) 196 K/uL (150-450); RED BLOOD CELL COUNT(AUTO) 3.78 MIL/uL (4.5-6.0); WHITE BLOOD COUNT (AUTO) 4.6 K/uL (4.3-11.0)
[2021-09-27 06:47] LABS: ALANINE AMINOTRANSFERASE 32 U/L (12-78); ALBUMIN 3.6 g/dL (3.4-5.0); ALKALINE PHOSPHATASE 60 U/L (46-116); ASPARTATE AMINOTRANSFERASE 13 U/L (15-37); BILIRUBIN,TOTAL 0.5 mg/dL (0.2-1.0); CALCIUM, SERUM 9.4 mg/dL (8.5-10.1); CARBON DIOXIDE 29 mmol/L (21-32); CHLORIDE 103 mmol/L (98-107); CREATININE 1.4 mg/dL (0.6-1.3); GLUCOSE 84 mg/dL (74-106); PHOSPHORUS 4.2 mg/dL (2.5-4.9); SODIUM SERUM 139 mmol/L (136-145); TOTAL PROTEIN, SERUM 7.1 g/dL (6.4-8.2); UREA NITROGEN, BLOOD 28 mg/dL (7-18)
--- NOTE | 2021-09-27 07:46 | NUR ---
RN OPENING NOTES RECEIVED PATIENT IN BED, AWAKE AND ALERT. NO SIGNS OF ACUTE DISTRESS NOTED. ON ROOM AIR, NO SOB NOTED, BREATHING EVEN AND UNLABORED. DENIES ANY PAIN OR DISCOMFORT AT THIS TIME. SAFETY PRECAUTIONS IN PLACE. BED LOCKED AND ON LOWEST POSITION, SR UP, CALL LIGHT PLACED WITHIN EASY REACH. WILL CONTINUE TO MONITOR.
[2021-09-27 08:00] VITALS: BP 102/65
[2021-09-27] MEDS: PANTOPRAZOLE 40 MG TABLET.DR PO SCH (08:01)
[2021-09-27] MEDS: clonazePAM 0.5 MG TABLET PO SCH (08:01)
[2021-09-27] MEDS: ATORVASTATIN 10 MG TABLET PO SCH (08:13)
[2021-09-27] MEDS: DIVALPROEX SODIUM 125 MG CAP.SPRINK PO SCH ×2 (08:13→13:21)
[2021-09-27] MEDS: ASPIRIN EC 81 MG TABLET.DR PO SCH (08:13)
[2021-09-27] MEDS: MULTIVITAMINS,THERAGRAN 1 UDTAB TABLET PO SCH (08:13)
[2021-09-27] MEDS: DOCUSATE SODIUM 100 MG CAPSULE PO SCH (08:13)
[2021-09-27] MEDS: CLOPIDOGREL BISULFATE 75 MG TABLET PO SCH (08:13)
[2021-09-27] MEDS: CHOLECALCIFEROL 1,000 UNIT TABLET (VIT D3) PO SCH (08:13)
[2021-09-27] MEDS: POLYETHYLENE GLYCOL 3350 17 GM POWD.PACK PO SCH (08:14)
[2021-09-27 08:23] VITALS: BP 102/65
[2021-09-27] MEDS: VALSARTAN 80 MG TABLET PO SCH (08:23)
[2021-09-27] MEDS: METOPROLOL SUCCINATE 25 MG TAB.SR.24H PO SCH (08:23)
[2021-09-27] MEDS ORDERED: IV NS 0.9% 500 ML BAG IV ONE (13:00)
[2021-09-27] MEDS: ACETAMINOPHEN 325 MG TABLET PO PRN (14:51)
--- NOTE | 2021-09-27 15:50 | NUR ---
DURAL MECHANIC NOTES PT DISCHARGE HOME IN STABLE CONDITION. A/O X3. VITAL SIGNS TAKEN, STABLE AND RECORDED. PHOTOS OF SKIN ISSUES TAKEN AND FILED IN CHART. ALL BELONGINGS ACCOUNTED FOR, FORMS SIGNED. NAME ARMBAND REMOVED. HEALTH TEACHINGS GIVEN TO PATIENT AND SON WITH VERBALIZATION OF UNDERSTANDING. PT LEFT UNIT @1545 VIA W/C ACCOMPANIED BY KAYLEEN CABALLERO AND SON IN THE LOBBY. MD AND CHARGE NURSE AWARE OF DISCHARGE.
== END 2021-09-27 15:45 | disposition home health service (06) | DRG 280 ==
LOC: ER 11:17 → MED 14:25 → TELE 18:25 → MED 20:06 → TELE 09-24 04:14 → MED 09-25 11:10
PROVIDERS: ADMIT Nurse Practitioner Acute Care
DX: I21.4 Non-ST elevation (NSTEMI) myocardial infarction (principal); N17.0 Acute kidney failure with tubular necrosis; I69.354 Hemiplegia and hemiparesis following cerebral infarction affecting left non-dominant side; E86.0 Dehydration; E78.5 Hyperlipidemia, unspecified; E11.9 Type 2 diabetes mellitus without complications; I10 Essential (primary) hypertension; Z95.5 Presence of coronary angioplasty implant and graft; Z90.49 Acquired absence of other specified parts of digestive tract; Z88.5 Allergy status to narcotic agent; Z88.8 Allergy status to other drugs, medicaments and biological substances; Z79.02 Long term (current) use of antithrombotics/antiplatelets; Z79.82 Long term (current) use of aspirin; Z79.899 Other long term (current) drug therapy; I25.2 Old myocardial infarction; I25.10 Atherosclerotic heart disease of native coronary artery without angina pectoris; D53.9 Nutritional anemia, unspecified; F43.10 Post-traumatic stress disorder, unspecified; Z91.51 Personal history of suicidal behavior; G31.84 Mild cognitive impairment of uncertain or unknown etiology; F32.A Depression, unspecified; F41.9 Anxiety disorder, unspecified; Z20.822 Contact with and (suspected) exposure to COVID-19
CPT/HCPCS: 36415; 70450-TC; 71045-TC; 80048-TC; 80053-TC; 80061-TC; 80076-TC; 82550-TC; 83605-TC; 83735-TC; 84100-TC; 84484-TC; 85025-TC; 87040-TC; 87081-TC; 97116-TC; 97530-TC; C9803; G0378; J1650; J2060; J3490; J7030

== ENCOUNTER 2022-02-26 18:26 | Inpatient (IN) | payer MEDICARE, OTHER ==
[~2022-02-26] VITALS: Ht 177.8 cm; Wt 71.7 kg
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
[2022-02-26] MEDS ORDERED: HALOPERIDOL LACTATE INJ 5 MG/ML VIAL ONE (18:38)
--- NOTE | 2022-02-26 18:49 | NUR ---
IV ESTABLISHED L AC 20G. LABS DRAWN AND COLLECTED AT BEDSIDE. CONVERTED TO SALINE LOCK.
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
[2022-02-26] MEDS ORDERED: HALOPERIDOL LACTATE INJ 5 MG/ML VIAL IM ONE (19:00)
[2022-02-26] MEDS ORDERED: IV NS 0.9% 500 ML BAG IV ONE (19:00)
--- NOTE | 2022-02-26 19:08 | NUR ---
COVID TEST COLLECTED AND SENT
--- NOTE | 2022-02-26 19:10 | NUR ---
PT TAKEN TO CT VIA [facility]
[2022-02-26 19:17] LABS: CARBON DIOXIDE 27 mmol/L (21-32); CHLORIDE 101 mmol/L (98-107); CREATININE 1.2 mg/dL (0.6-1.3); GLUCOSE 113 mg/dL (74-106); POTASSIUM 4.5 mmol/L (3.5-5.1); SODIUM SERUM 135 mmol/L (136-145); UREA NITROGEN, BLOOD 17 mg/dL (7-18)
--- NOTE | 2022-02-26 19:19 | NUR ---
RT RETURNED TO ER BED [address]
[2022-02-26 19:21] LABS: SERUM AMMONIA < 10 umol/L (11-32)
[2022-02-26 19:23] LABS: ALANINE AMINOTRANSFERASE 20 U/L (12-78); ALKALINE PHOSPHATASE 83 U/L (46-116); ASPARTATE AMINOTRANSFERASE 12 U/L (15-37); BILIRUBIN,DIRECT 0.1 mg/dL (0.0-0.2); BILIRUBIN,TOTAL 0.7 mg/dL (0.2-1.0); TOTAL PROTEIN, SERUM 7.9 g/dL (6.4-8.2)
--- NOTE | 2022-02-26 19:30 | NUR ---
MRSA SWAB COLLECTED AND SENT TO LAB. PATIENT'S BELONGINGS LIST DONE.
--- NOTE | 2022-02-26 19:37 | NUR ---
[facility] PAGED
--- NOTE | 2022-02-26 19:43 | NUR ---
COVID SWAB COLLECTED AND SENT TO LAB
--- NOTE | 2022-02-26 19:48 | NUR ---
PATIENT BACK FROM CT, STILL UNABLE TO PROVIDE URINE SAMPLE; PATIENT DOES NOT WANT TO BE STRAIGHT CATHED, URINAL OFFERED
[2022-02-26 19:50] LABS: THYROID STIMULATING HORMONE 1.564 uIU/mL (0.358-3.74)
--- NOTE | 2022-02-26 19:54 | NUR ---
MOVE SHEET SUBMITTED.
--- NOTE | 2022-02-26 20:00 | NUR ---
URINE SAMPLE COLLECTED AND SENT TO LAB
[2022-02-26 20:04] LABS: BASOPHILS % (AUTO) 0.6 % (0.0-2.0); EOSINOPHILS % (AUTO) 3.6 % (0.0-6.0); HEMATOCRIT 43 % (39-51); HEMOGLOBIN 14.3 g/dL (13.5-17.5); LYMPHOCYTES # (AUTO) 0.8 K/uL (0.8-4.8); LYMPHOCYTES % (AUTO) 19.8 % (20.0-44.0); MEAN CORPUSCULAR HGB CONC 33 g/dl (31.0-36.0); MEAN CORPUSCULAR VOLUME 93 fL (80-96); MONOCYTES # (AUTO) 0.3 K/uL (0.1-1.30); MONOCYTES % (AUTO) 7.7 % (2.0-12.0); NEUTROPHILS # (AUTO) 2.9 K/uL (1.8-8.9); NEUTROPHILS % (AUTO) 68.3 % (43.0-81.0); PLATELET COUNT (AUTO) 255 K/uL (150-450); RED BLOOD CELL COUNT(AUTO) 4.66 MIL/uL (4.5-6.0); WHITE BLOOD COUNT (AUTO) 4.3 K/uL (4.3-11.0)
--- NOTE | 2022-02-26 20:14 | NUR ---
Chelita you in [facility] - 02/26/22 at 2024 by FIOR URINE SAMPLE COLLECTED
[2022-02-26 20:59] LABS: BILIRUBIN,URINE NEGATIVE (NEGATIVE); COLOR,URINE YELLOW (YELLOW); LEUKOCYTE ESTERASE ,URINE NEGATIVE (NEGATIVE); NITRITE, URINE NEGATIVE (NEGATIVE); PROTEIN,URINE NEGATIVE (NEGATIVE); UGLUCOSE NEGATIVE (NEGATIVE); UROBILINOGEN,URINE 0.2 EU/dL (0.2)
[2022-02-26 21:12] LABS: BACTERIA,URINE None seen /HPF (None Seen); SQUAMOUS EPITHELIAL CELL,UR 0-2 /HPF (None Seen); WBC,URINE 0-2 /HPF (0-3)
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
--- NOTE | 2022-02-26 21:20 | NUR ---
ROOM ASSIGNED [id number]
--- NOTE | 2022-02-26 22:06 | NUR ---
REPORT GIVEN TO KAYLEEN CEVALLOS FROM FOR SONDRA, WILL TRANSFER PATIENT.
--- NOTE | 2022-02-26 22:24 | NUR ---
PATIENT TRANSFERRED IN NO ACUTE DISTRESS, VSS.
[2022-02-26 22:40] VITALS: BP 186/96
--- NOTE | 2022-02-26 22:40 | NUR ---
SHOT TUBE MACHINE TENDERSTRUCTURAL MANAGER NOTE PT TRANSPORTED VIA GURNEY TO UNIT AT THIS TIME. PT FROM HOME ADMITTED TO TELE FROM ER UNDER DR DUKE FOR ADMITTING DX OF FALL. PT ABLE TO OPEN EYES, RESPONSIVE TO LIGHT STIMULUS. PT STABLE ON ROOM AIR, O2 SAT 100%. NO SOB OR S/S OF RESPIRATORY DISTRESS NOTED. BREATHING EVEN AND UNLABORED. ON EXTERNAL MANAGER CUSTOMER SERVICE READING SR @ 76 BPM. PT DENIES ANY PAIN AT THIS TIME. IV ACCESS LAC 20 GAUGE SL, INTACT AND PATENT. ORIENTED TO UNIT, STAFF, AND ROOM. ALL BELONGINGS ACCOUNTED FOR AND BELONGINGS LIST SIGNED. SAFETY PRECAUTIONS IN PLACE. BED IN LOWEST LOCKED POSITION, HOB ELEVATED, SIDE RAILS UP X3, AND CALL LIGHT AND TABLE WITHIN REACH. ALL NEEDS MET AND ATTENDED TO AT THIS TIME.
[2022-02-26] MEDS ORDERED: MAG HYDROX/AL HYDROX/SIMETH 30 ML UDC PO PRN (23:30)
[2022-02-26] MEDS ORDERED: Z GUARD REMEDY 4 OZ OINT TP PRN (23:30)
[2022-02-26] MEDS ORDERED: POLYVINYL ALCOHOL 15 ML BOTTLE EACHEYE PRN (23:30)
[2022-02-26] MEDS ORDERED: ZOLPIDEM TARTRATE 5 MG TABLET PO PRN (23:30)
[2022-02-26] MEDS ORDERED: ONDANSETRON HCL/PF 4 MG/2 ML VIAL IVP PRN (23:30)
[2022-02-26] MEDS ORDERED: ACETAMINOPHEN 325 MG TABLET PO PRN (23:30)
[2022-02-26] MEDS ORDERED: MAGNESIUM HYDROXIDE 30 ML UDC PO PRN (23:30)
[2022-02-26] MEDS: METOPROLOL SUCCINATE 25 MG TAB.SR.24H PO SCH (23:43)
[2022-02-27] VITALS: BP 158/86
[2022-02-27] MEDS: ATORVASTATIN 10 MG TABLET PO SCH ×2 (00:03→21:35)
[2022-02-27] MEDS: ENOXAPARIN SODIUM 40 MG/0.4 ML DISP.SYRIN SQ SCH ×2 (00:06→21:38)
[2022-02-27] MEDS: VALSARTAN 80 MG TABLET PO SCH ×2 (00:24→09:53)
[2022-02-27 04:00] VITALS: BP 125/74
--- NOTE | 2022-02-27 06:44 | NUR ---
CHIEF ORDER DISPATCHER CLOSING NOTE PT IN BED, EYES CLOSED, EASILY AROUSABLE. ABLE TO MAKE NEEDS KNOWN. PT STABLE ON ROOM AIR, O2 SAT 98%. NO SOB OR S/S OF RESPIRATORY DISTRESS NOTED. BREATHING EVEN AND UNLABORED. ON EXTERNAL PARTS ADVISOR READING SR @ 72 BPM. PT DENIES ANY PAIN AT THIS TIME. IV ACCESS LAC 20 GAUGE SL, INTACT AND PATENT. SAFETY PRECAUTIONS IN PLACE AT ALL TIMES. BED IN LOWEST LOCKED POSITION, HOB ELEVATED, SIDE RAILS UP X3, AND CALL LIGHT AND TABLE WITHIN REACH. ALL NEEDS MET AND ATTENDED TO AT THIS TIME AND WILL ENDORSE TO ONCOMING NURSE FOR SONDRA.
[2022-02-27 07:14] LABS: BASOPHILS % (AUTO) 0.8 % (0.0-2.0); EOSINOPHILS % (AUTO) 1.7 % (0.0-6.0); HEMATOCRIT 42 % (39-51); HEMOGLOBIN 13.6 g/dL (13.5-17.5); LYMPHOCYTES % (AUTO) 19.4 % (20.0-44.0); MEAN CORPUSCULAR HGB CONC 33 g/dl (31.0-36.0); MEAN CORPUSCULAR VOLUME 94 fL (80-96); MONOCYTES # (AUTO) 0.4 K/uL (0.1-1.30); MONOCYTES % (AUTO) 8.4 % (2.0-12.0); NEUTROPHILS # (AUTO) 3.6 K/uL (1.8-8.9); NEUTROPHILS % (AUTO) 69.7 % (43.0-81.0); PLATELET COUNT (AUTO) 244 K/uL (150-450); RED BLOOD CELL COUNT(AUTO) 4.47 MIL/uL (4.5-6.0); WHITE BLOOD COUNT (AUTO) 5.2 K/uL (4.3-11.0)
[2022-02-27 07:25] LABS: CREATININE 1.1 mg/dL (0.6-1.3); MAGNESIUM 1.8 mg/dL (1.8-2.4); PHOSPHORUS 4.3 mg/dL (2.5-4.9); POTASSIUM 3.9 mmol/L (3.5-5.1)
--- NOTE | 2022-02-27 07:30 | NUR ---
RESEARCH ANIMAL ATTENDANT OPENING NOTES RECEIVED PATIENT IN BED, WITH EYES CLOSED, ABLE TO BE WAKEN. ON RA WITH NO S/SX OF DISTRESS NOTED. IV ACCESS LAC 20 GAUGE SL, INTACT AND PATENT. NO NEEDS AT THIS TIME. SAFETY PRECAUTIONS IN PLACE: BED IN LOWEST LOCKED POSITION, HOB ELEVATED, SIDE RAILS UP X3, AND CALL LIGHT AND TABLE WITHIN REACH. WILL CONTINUE TO MONITOR AND FOLLOW PLAN OF CARE
[2022-02-27 07:39] LABS: THYROID STIMULATING HORMONE 2.746 uIU/mL (0.358-3.74)
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
[2022-02-27] MEDS: CHOLECALCIFEROL 1,000 UNIT TABLET (VIT D3) PO SCH (09:52)
[2022-02-27] MEDS: CLOPIDOGREL BISULFATE 75 MG TABLET PO SCH (09:53)
[2022-02-27] MEDS: POLYETHYLENE GLYCOL 3350 17 GM POWD.PACK PO SCH (09:54)
[2022-02-27] MEDS: ASPIRIN EC 81 MG TABLET.DR PO SCH (09:54)
[2022-02-27] MEDS: METOPROLOL SUCCINATE 25 MG TAB.SR.24H PO SCH (09:54)
[2022-02-27] MEDS: DIVALPROEX SODIUM 125 MG CAP.SPRINK PO SCH ×3 (09:54→17:47)
[2022-02-27] MEDS: MULTIVITAMINS,THERAGRAN 1 UDTAB TABLET PO SCH (09:54)
[2022-02-27] MEDS: DOCUSATE SODIUM 100 MG CAPSULE PO SCH ×2 (09:54→17:47)
[2022-02-27] MEDS: PANTOPRAZOLE 40 MG TABLET.DR PO SCH (11:51)
--- NOTE | 2022-02-27 13:30 | NUR ---
RN NOTES SEEN BY PHYSICAL THERAPY.
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
--- NOTE | 2022-02-27 19:15 | NUR ---
RN NOTES ENDORSED REPORT TO TOUCH UP PAINTER HAND NURSE FOR SONDRA
--- NOTE | 2022-02-27 20:22 | NUR ---
RN OPENNING NOTES RECEIVED PATIENT IN BED AOX3 TIMES OF CONFUSION. ON ROOM AIR BAUTISTA WELL.NO SIGN SOB/DISTRESS NOTED.IV ACCESS LAC 20 GAUGE SL, INTACT AND PATENT. SAFETY MEASURE IN PLACE: BED IN LOWEST LOCKED POSITION, HOB ELEVATED, SIDE RAILS UP X3, AND CALL LIGHT AND TABLE WITHIN REACH. WILL CONTINUE TO MONITOR .
[2022-02-27] MEDS: IV D5/ 0.9% NACL 1,000 ML IV PRN (22:02)
[2022-02-27 22:52] VITALS: BP 130/73
[2022-02-27 23:00] VITALS: BP 130/73
[2022-02-28] VITALS: BP 135/72
--- NOTE | 2022-02-28 06:54 | NUR ---
MAGDY RN CLOSING NOTE PT IN BED SLEEPING BUT EASY TO AROUSED ON ROOM AIR, O2 SAT 98%. NO SIGN SOB/ RESPIRATORY DISTRESS NOTED. BREATHING EVEN AND UNLABORED. IV ACCESS LAC 20 GAUGE SL, INTACT AND PATENT. SAFETY PRECAUTIONS IN PLACE AT ALL TIMES. BED IN LOWEST LOCKED POSITION, HOB ELEVATED, SIDE RAILS UP X3,CALL LIGHT AND TABLE WITHIN REACH. WILL ENDORSE TO NEXT SHIFT.
[2022-02-28 07:13] LABS: CALCIUM, SERUM 9.5 mg/dL (8.5-10.1); CREATININE 1.2 mg/dL (0.6-1.3); MAGNESIUM 1.9 mg/dL (1.8-2.4); POTASSIUM 3.9 mmol/L (3.5-5.1)
--- NOTE | 2022-02-28 07:25 | NUR ---
RN OPENING NOTES RECEIVED PATIENT IN BED A/O X3 WITH SOME CONFUSION . ON RA WITH NO S/SX OF DISTRESS NOTED AT THIS TIME. IV ACCESS LAC 20 GAUGE SL, INTACT AND PATENT. SAFETY MEASURE IN PLACE: BED IN LOWEST LOCKED POSITION, HOB ELEVATED, SIDE RAILS UP X3, AND CALL LIGHT AND TABLE WITHIN REACH. WILL CONTINUE TO MONITOR .
[2022-02-28 07:41] LABS: BASOPHILS % (AUTO) 0.5 % (0.0-2.0); HEMATOCRIT 40 % (39-51); HEMOGLOBIN 13.2 g/dL (13.5-17.5); LYMPHOCYTES # (AUTO) 1.2 K/uL (0.8-4.8); LYMPHOCYTES % (AUTO) 30.4 % (20.0-44.0); MEAN CORPUSCULAR HGB CONC 33 g/dl (31.0-36.0); MEAN CORPUSCULAR VOLUME 93 fL (80-96); MONOCYTES # (AUTO) 0.5 K/uL (0.1-1.30); MONOCYTES % (AUTO) 11.3 % (2.0-12.0); NEUTROPHILS # (AUTO) 2.2 K/uL (1.8-8.9); NEUTROPHILS % (AUTO) 53.8 % (43.0-81.0); PLATELET COUNT (AUTO) 240 K/uL (150-450)
[2022-02-28] MEDS: ASPIRIN EC 81 MG TABLET.DR PO SCH (09:05)
[2022-02-28] MEDS: POLYETHYLENE GLYCOL 3350 17 GM POWD.PACK PO SCH (09:05)
[2022-02-28] MEDS: CHOLECALCIFEROL 1,000 UNIT TABLET (VIT D3) PO SCH (09:06)
[2022-02-28] MEDS: CLOPIDOGREL BISULFATE 75 MG TABLET PO SCH (09:06)
[2022-02-28] MEDS: DIVALPROEX SODIUM 125 MG CAP.SPRINK PO SCH ×3 (09:06→17:09)
[2022-02-28] MEDS: VALSARTAN 80 MG TABLET PO SCH (09:06)
[2022-02-28] MEDS: MULTIVITAMINS,THERAGRAN 1 UDTAB TABLET PO SCH (09:06)
[2022-02-28] MEDS: PANTOPRAZOLE 40 MG TABLET.DR PO SCH (09:06)
[2022-02-28] MEDS: DOCUSATE SODIUM 100 MG CAPSULE PO SCH ×2 (09:06→17:09)
[2022-02-28] MEDS: METOPROLOL SUCCINATE 25 MG TAB.SR.24H PO SCH (09:06)
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
[2022-02-28] MEDS: HYDROCODONE/APAP 5/325MG TABLET PO PRN ×2 (17:09→21:13)
--- NOTE | 2022-02-28 19:10 | NUR ---
MS RN CLOSING NOTES PATIENT IN BED, AWAKE, WATCHING TV. ON RA WITH NO S/S OF DISTRESS NOTED. ALL MEDS GIVEN THROUGH OUT DAY. NO ACUTE CHANGES. PATIENT WAS SEEN BY PROFESSOR OF MARKETING. SAFETY MEASURES IN PLACE: CALL LIGHT WITHIN REACH, BED ALARM ON, BED IN LOWEST AND LOCKED POSITION, HOB ELEVATED, CALL LIGHT WITHIN REACH. WILL ENDORSE TO THE CURRICULUM AND INSTRUCTION SPECIALIST NURSE FOR SONDRA
--- NOTE | 2022-02-28 19:20 | NUR ---
MS RN OPENING NOTES: RECEIVED PATIENT IN BED, AWAKE, WATCHING TV, A/O X4. NO S/S OF DISTRESS NOTED. NO COMPLAIN OF PAIN. CALL LIGHT WITHIN REACH. BED ALARM ON. BED IN LOWEST AND LOCKED POSITION. HOB ELEVATED. WITH URINAL AT THE BEDSIDE.
[2022-02-28 20:00] VITALS: BP 121/67
[2022-02-28] MEDS: ATORVASTATIN 10 MG TABLET PO SCH (21:12)
[2022-02-28] MEDS: ENOXAPARIN SODIUM 40 MG/0.4 ML DISP.SYRIN SQ SCH (21:15)
[2022-03-01] MEDS: HYDROCODONE/APAP 5/325MG TABLET PO PRN ×3 (01:29→16:59)
[2022-03-01 04:00] VITALS: BP 114/57
[2022-03-01] MEDS: IV D5/ 0.9% NACL 1,000 ML IV PRN (04:21)
--- NOTE | 2022-03-01 06:34 | NUR ---
MS RN CLOSING NOTES: PATIENT IN BED, ASLEEP,NO S/S OF DISTRESS NOTED. NO COMPLAIN OF PAIN. CALL LIGHT WITHIN REACH. BED ALARM ON. BED IN LOWEST AND LOCKED POSITION. HOB ELEVATED. ABLE TO TURN HIMSELF IN BED TO THE SIDES AND CHANGE POSITION. PATIENT REFUSED THE DVT PUMP THIS MORNING.
[2022-03-01 06:41] LABS: BASOPHILS % (AUTO) 0.9 % (0.0-2.0); EOSINOPHILS % (AUTO) 5.1 % (0.0-6.0); HEMATOCRIT 36 % (39-51); LYMPHOCYTES # (AUTO) 1.6 K/uL (0.8-4.8); LYMPHOCYTES % (AUTO) 38.7 % (20.0-44.0); MEAN CORPUSCULAR HGB CONC 33 g/dl (31.0-36.0); MEAN CORPUSCULAR VOLUME 93 fL (80-96); MONOCYTES # (AUTO) 0.5 K/uL (0.1-1.30); NEUTROPHILS # (AUTO) 1.8 K/uL (1.8-8.9); NEUTROPHILS % (AUTO) 44.3 % (43.0-81.0); PLATELET COUNT (AUTO) 228 K/uL (150-450); RED BLOOD CELL COUNT(AUTO) 3.88 MIL/uL (4.5-6.0); WHITE BLOOD COUNT (AUTO) 4.1 K/uL (4.3-11.0)
[2022-03-01 07:30] LABS: CALCIUM, SERUM 8.9 mg/dL (8.5-10.1); CREATININE 1.2 mg/dL (0.6-1.3); MAGNESIUM 1.8 mg/dL (1.8-2.4); PHOSPHORUS 3.9 mg/dL (2.5-4.9)
--- NOTE | 2022-03-01 07:30 | NUR ---
MS RN OPENING NOTES: RECEIVED PATIENT AWAKE IN BED, AWAKE . PATIENT IS A/O X4. NO S/S OF DISTRESS NOTED. NO COMPLAIN OF PAIN.ABLE TO MAKE NEEDS KNOWN. NO DISCOMFORT NOTED. CALL LIGHT AND TABLE WITHIN REACH. BED ALARM ON. BED IN LOWEST AND LOCKED POSITION. HOB ELEVATED. WITH CONTINUE TO MONITOR.
[2022-03-01] MEDS: PANTOPRAZOLE 40 MG TABLET.DR PO SCH (07:59)
[2022-03-01 08:00] VITALS: BP 186/86
[2022-03-01] MEDS: POLYETHYLENE GLYCOL 3350 17 GM POWD.PACK PO SCH (08:29)
[2022-03-01] MEDS: METOPROLOL SUCCINATE 25 MG TAB.SR.24H PO SCH (08:29)
[2022-03-01] MEDS: CLOPIDOGREL BISULFATE 75 MG TABLET PO SCH (08:29)
[2022-03-01] MEDS: ASPIRIN EC 81 MG TABLET.DR PO SCH (08:30)
[2022-03-01] MEDS: MULTIVITAMINS,THERAGRAN 1 UDTAB TABLET PO SCH (08:30)
[2022-03-01] MEDS: CHOLECALCIFEROL 1,000 UNIT TABLET (VIT D3) PO SCH (08:30)
[2022-03-01] MEDS ORDERED: LORAZEPAM 0.5 MG TABLET PO ONE (08:30)
[2022-03-01] MEDS: DOCUSATE SODIUM 100 MG CAPSULE PO SCH ×2 (08:30→16:27)
[2022-03-01] MEDS: DIVALPROEX SODIUM 125 MG CAP.SPRINK PO SCH ×3 (08:30→16:27)
[2022-03-01] MEDS: VALSARTAN 80 MG TABLET PO SCH (08:31)
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
[2022-03-01] MEDS ORDERED: VALSARTAN 80 MG TABLET PO SCH (12:00)
--- NOTE | 2022-03-01 12:05 | NUR ---
MS RN NOTE PATIENT CLEARED MEDICALLY BY ELIZ MARIE OF CRISIS TEAM NOTIFIED .
[2022-03-01 16:00] VITALS: BP 130/69
--- NOTE | 2022-03-01 18:45 | NUR ---
RN NOTES TRANSFERRED THE PATIENT TO THE GPS WITH SHAHIDA SAM AT 1645 PM. PATIENT IN STABLE CONDITION.
--- NOTE | 2022-03-01 19:04 | NUR ---
RN NOTES CALLED GPS AT 6 PM AND GAVE REPORT FOR THE PATIENT TO CHARGE NURSE JOANNA.
== END 2022-03-01 18:30 | DRG 640 ==
LOC: ER 18:32 → MED 21:24 → TELE 02-27 00:04 → MED 02-27 09:13
PROVIDERS: ADMIT Nurse Practitioner Acute Care; ATTEND Nurse Practitioner Acute Care
DX: R62.7 Adult failure to thrive (principal); G93.41 Metabolic encephalopathy; I69.354 Hemiplegia and hemiparesis following cerebral infarction affecting left non-dominant side; F03.91 Unspecified dementia, unspecified severity, with behavioral disturbance; R45.851 Suicidal ideations; I10 Essential (primary) hypertension; E11.9 Type 2 diabetes mellitus without complications; I25.10 Atherosclerotic heart disease of native coronary artery without angina pectoris; Z98.61 Coronary angioplasty status; F29 Unspecified psychosis not due to a substance or known physiological condition; F32.9 Major depressive disorder, single episode, unspecified; F41.0 Panic disorder [episodic paroxysmal anxiety]; F41.9 Anxiety disorder, unspecified; F19.90 Other psychoactive substance use, unspecified, uncomplicated; M20.41 Other hammer toe(s) (acquired), right foot; M20.42 Other hammer toe(s) (acquired), left foot; F43.10 Post-traumatic stress disorder, unspecified; E78.5 Hyperlipidemia, unspecified; W18.30XA Fall on same level, unspecified, initial encounter; Y92.009 Unspecified place in unspecified non-institutional (private) residence as the place of occurrence of the external cause; Z20.822 Contact with and (suspected) exposure to COVID-19; Z90.49 Acquired absence of other specified parts of digestive tract; Z91.51 Personal history of suicidal behavior; Z88.5 Allergy status to narcotic agent; Z88.8 Allergy status to other drugs, medicaments and biological substances; Z79.02 Long term (current) use of antithrombotics/antiplatelets; Z79.82 Long term (current) use of aspirin; Z79.899 Other long term (current) drug therapy
CPT/HCPCS: 36415; 70450-TC; 71045-TC; 80048-TC; 80061-TC; 80076-TC; 81001; 82140-TC; 83735-TC; 84100-TC; 84443-TC; 85025-TC; 87081-TC; 93307-TC; 97116-TC; 97530-TC; C9803; G0378; J1630; J1650; J7040; J7042

== ENCOUNTER 2022-03-01 19:07 | Inpatient (IN) | payer MEDICARE, OTHER ==
[~2022-03-01] VITALS: Ht 177.8 cm; Wt 67.6 kg
[2022-03-01 20:00] VITALS: BP 118/78
[2022-03-01] MEDS ORDERED: MAGNESIUM HYDROXIDE 30 ML UDC PO PRN (20:00)
[2022-03-01] MEDS ORDERED: MAG HYDROX/AL HYDROX/SIMETH 30 ML UDC PO PRN (20:00)
[2022-03-01] MEDS ORDERED: POLYVINYL ALCOHOL 15 ML BOTTLE EACHEYE PRN (20:00)
[2022-03-01] MEDS: LORAZEPAM 0.5 MG TABLET PO PRN (20:32)
[2022-03-01] MEDS ORDERED: BLOOD SUGAR DIAGNOSTIC 1 EACH STRIP IN ONE (21:00)
[2022-03-01] MEDS ORDERED: Z GUARD REMEDY 4 OZ OINT TP PRN (23:00)
[2022-03-02] MEDS: ACETAMINOPHEN 325 MG TABLET PO PRN ×3 (04:13→21:44)
[2022-03-02 07:34] LABS: BASOPHILS % (AUTO) 0.8 % (0.0-2.0); CALCIUM, SERUM 9.1 mg/dL (8.5-10.1); CARBON DIOXIDE 31 mmol/L (21-32); CHLORIDE 103 mmol/L (98-107); CREATININE 1.4 mg/dL (0.6-1.3); EOSINOPHILS % (AUTO) 4.2 % (0.0-6.0); GLUCOSE 78 mg/dL (74-106); HEMATOCRIT 40 % (39-51); HEMOGLOBIN 13.3 g/dL (13.5-17.5); LYMPHOCYTES # (AUTO) 1.4 K/uL (0.8-4.8); LYMPHOCYTES % (AUTO) 30.6 % (20.0-44.0); MEAN CORPUSCULAR HGB CONC 33 g/dl (31.0-36.0); MEAN CORPUSCULAR VOLUME 93 fL (80-96); MONOCYTES # (AUTO) 0.5 K/uL (0.1-1.30); MONOCYTES % (AUTO) 11.9 % (2.0-12.0); NEUTROPHILS # (AUTO) 2.4 K/uL (1.8-8.9); NEUTROPHILS % (AUTO) 52.5 % (43.0-81.0); PLATELET COUNT (AUTO) 252 K/uL (150-450); RED BLOOD CELL COUNT(AUTO) 4.29 MIL/uL (4.5-6.0); SODIUM SERUM 139 mmol/L (136-145); UREA NITROGEN, BLOOD 33 mg/dL (7-18); WHITE BLOOD COUNT (AUTO) 4.6 K/uL (4.3-11.0)
[2022-03-02 08:00] VITALS: BP 145/82
[2022-03-02 08:04] LABS: CHOLESTEROL 154 mg/dL (<200); HDL CHOLESTEROL 50 mg/dL (40-60); LDL 87 mg/dL (0-99); TRIGLYCERIDES 50 mg/dL (30-150)
[2022-03-02] MEDS: PANTOPRAZOLE 40 MG TABLET.DR PO SCH (08:18)
[2022-03-02] MEDS: ENSURE ENLIVE CHOC 237 ML CAN PO SCH ×2 (08:18→17:04)
[2022-03-02] MEDS: VALSARTAN 80 MG TABLET PO SCH (08:36)
[2022-03-02] MEDS ORDERED: DOCUSATE SODIUM 100 MG CAPSULE PO SCH (09:00)
[2022-03-02] MEDS ORDERED: CLOPIDOGREL BISULFATE 75 MG TABLET PO SCH (09:00)
[2022-03-02] MEDS ORDERED: MULTIVIT W/MINERALS 1 TAB TABLET PO SCH (09:00)
[2022-03-02] MEDS ORDERED: POLYETHYLENE GLYCOL 3350 17 GM POWD.PACK PO SCH (09:00)
[2022-03-02] MEDS ORDERED: METOPROLOL SUCCINATE 25 MG TAB.SR.24H PO SCH (09:00)
[2022-03-02] MEDS ORDERED: ASPIRIN 81 MG TAB.CHEW PO SCH (09:00)
[2022-03-02] MEDS ORDERED: CHOLECALCIFEROL 1,000 UNIT TABLET (VIT D3) PO SCH (09:00)
[2022-03-02] MEDS: DIVALPROEX SODIUM 125 MG CAP.SPRINK PO SCH ×2 (09:31→17:04)
[2022-03-02] MEDS: OLANZAPINE 2.5 MG TABLET PO SCH (09:31)
[2022-03-02] MEDS: MULTIVIT W/MINERALS 1 TAB TABLET PO SCH (10:00)
[2022-03-02] MEDS ORDERED: VALSARTAN 80 MG TABLET PO SCH (10:00)
[2022-03-02] MEDS: ASPIRIN EC 81 MG TABLET.DR PO SCH (10:00)
[2022-03-02] MEDS: METOPROLOL SUCCINATE 25 MG TAB.SR.24H PO SCH (10:00)
[2022-03-02] MEDS ORDERED: POLYVINYL ALCOHOL 15 ML BOTTLE EACHEYE PRN (10:00)
[2022-03-02] MEDS: CLOPIDOGREL BISULFATE 75 MG TABLET PO SCH (10:00)
[2022-03-02] MEDS: DOCUSATE SODIUM 100 MG CAPSULE PO SCH ×2 (10:00→17:04)
[2022-03-02] MEDS: POLYETHYLENE GLYCOL 3350 17 GM POWD.PACK PO SCH (10:00)
[2022-03-02 16:00] VITALS: BP 102/60
[2022-03-02 20:00] VITALS: BP 118/65
[2022-03-02 20:02] VITALS: BP 114/65
[2022-03-02 20:38] VITALS: BP 114/65
[2022-03-02] MEDS ORDERED: MIRTAZAPINE 15 MG TABLET PO SCH (22:00)
[2022-03-03 08:00] VITALS: BP 136/80
[2022-03-03] MEDS: ENSURE ENLIVE CHOC 237 ML CAN PO SCH ×2 (08:15→16:51)
[2022-03-03] MEDS: PANTOPRAZOLE 40 MG TABLET.DR PO SCH (08:16)
[2022-03-03] MEDS: ATORVASTATIN 10 MG TABLET PO SCH (09:00)
[2022-03-03] MEDS: ASPIRIN EC 81 MG TABLET.DR PO SCH (09:00)
[2022-03-03] MEDS: DOCUSATE SODIUM 100 MG CAPSULE PO SCH ×2 (09:00→16:51)
[2022-03-03] MEDS: VALSARTAN 80 MG TABLET PO SCH (09:00)
[2022-03-03] MEDS: DIVALPROEX SODIUM 125 MG CAP.SPRINK PO SCH ×2 (09:00→16:51)
[2022-03-03] MEDS: MULTIVIT W/MINERALS 1 TAB TABLET PO SCH (09:00)
[2022-03-03] MEDS: METOPROLOL SUCCINATE 25 MG TAB.SR.24H PO SCH (09:00)
[2022-03-03] MEDS: CLOPIDOGREL BISULFATE 75 MG TABLET PO SCH (09:00)
[2022-03-03] MEDS: POLYETHYLENE GLYCOL 3350 17 GM POWD.PACK PO SCH (09:00)
[2022-03-03] MEDS: CHOLECALCIFEROL 1,000 UNIT TABLET (VIT D3) PO SCH (09:00)
[2022-03-03] MEDS: OLANZAPINE 2.5 MG TABLET PO SCH (09:00)
[2022-03-03 16:00] VITALS: BP 120/64
[2022-03-03 19:51] VITALS: BP 121/65
[2022-03-03 20:30] VITALS: BP 121/63
[2022-03-03] MEDS: ACETAMINOPHEN 325 MG TABLET PO PRN (21:30)
[2022-03-04] MEDS: LORAZEPAM 0.5 MG TABLET PO PRN (01:41)
[2022-03-04 08:00] VITALS: BP 119/64
[2022-03-04] MEDS: MULTIVIT W/MINERALS 1 TAB TABLET PO SCH (09:28)
[2022-03-04] MEDS: POLYETHYLENE GLYCOL 3350 17 GM POWD.PACK PO SCH (09:28)
[2022-03-04] MEDS: DOCUSATE SODIUM 100 MG CAPSULE PO SCH ×2 (09:29→16:48)
[2022-03-04] MEDS: METOPROLOL SUCCINATE 25 MG TAB.SR.24H PO SCH (09:29)
[2022-03-04] MEDS: OLANZAPINE 2.5 MG TABLET PO SCH (09:29)
[2022-03-04] MEDS: DIVALPROEX SODIUM 125 MG CAP.SPRINK PO SCH ×2 (09:29→16:48)
[2022-03-04] MEDS: VALSARTAN 80 MG TABLET PO SCH (09:29)
[2022-03-04] MEDS: ATORVASTATIN 10 MG TABLET PO SCH (09:30)
[2022-03-04] MEDS: ASPIRIN EC 81 MG TABLET.DR PO SCH (09:30)
[2022-03-04] MEDS: CHOLECALCIFEROL 1,000 UNIT TABLET (VIT D3) PO SCH (09:30)
[2022-03-04] MEDS: CLOPIDOGREL BISULFATE 75 MG TABLET PO SCH (09:30)
[2022-03-04] MEDS: PANTOPRAZOLE 40 MG TABLET.DR PO SCH (09:31)
[2022-03-04] MEDS: ENSURE ENLIVE CHOC 237 ML CAN PO SCH ×2 (09:31→16:49)
[2022-03-04 16:00] VITALS: BP 98/58
[2022-03-04 20:26] VITALS: BP 101/59
[2022-03-04] MEDS: TEMAZEPAM 7.5 MG CAPSULE PO PRN (23:26)
[2022-03-05 08:00] VITALS: BP 121/70
[2022-03-05] MEDS: PANTOPRAZOLE 40 MG TABLET.DR PO SCH (08:55)
[2022-03-05] MEDS: ATORVASTATIN 10 MG TABLET PO SCH (08:55)
[2022-03-05] MEDS: CHOLECALCIFEROL 1,000 UNIT TABLET (VIT D3) PO SCH (08:55)
[2022-03-05] MEDS: CLOPIDOGREL BISULFATE 75 MG TABLET PO SCH (08:55)
[2022-03-05] MEDS: POLYETHYLENE GLYCOL 3350 17 GM POWD.PACK PO SCH (08:55)
[2022-03-05] MEDS: MULTIVIT W/MINERALS 1 TAB TABLET PO SCH (08:55)
[2022-03-05] MEDS: DOCUSATE SODIUM 100 MG CAPSULE PO SCH ×2 (08:55→17:27)
[2022-03-05] MEDS: DIVALPROEX SODIUM 125 MG CAP.SPRINK PO SCH ×2 (08:55→17:27)
[2022-03-05] MEDS: ASPIRIN EC 81 MG TABLET.DR PO SCH (08:55)
[2022-03-05] MEDS: OLANZAPINE 2.5 MG TABLET PO SCH (08:56)
[2022-03-05] MEDS: VALSARTAN 80 MG TABLET PO SCH (08:57)
[2022-03-05] MEDS: ENSURE ENLIVE CHOC 237 ML CAN PO SCH ×2 (08:57→16:39)
[2022-03-05] MEDS: METOPROLOL SUCCINATE 25 MG TAB.SR.24H PO SCH (08:57)
[2022-03-05 16:00] VITALS: BP 103/71
[2022-03-05 20:33] VITALS: BP 111/70
[2022-03-05] MEDS: TEMAZEPAM 7.5 MG CAPSULE PO PRN (21:43)
[2022-03-06 08:00] VITALS: BP 126/67
[2022-03-06] MEDS: ENSURE ENLIVE CHOC 237 ML CAN PO SCH ×2 (08:00→17:00)
[2022-03-06] MEDS: POLYETHYLENE GLYCOL 3350 17 GM POWD.PACK PO SCH (09:00)
[2022-03-06] MEDS: CHOLECALCIFEROL 1,000 UNIT TABLET (VIT D3) PO SCH (11:07)
[2022-03-06] MEDS: PANTOPRAZOLE 40 MG TABLET.DR PO SCH (11:08)
[2022-03-06] MEDS: ASPIRIN EC 81 MG TABLET.DR PO SCH (11:08)
[2022-03-06] MEDS: MULTIVIT W/MINERALS 1 TAB TABLET PO SCH (11:09)
[2022-03-06] MEDS: DIVALPROEX SODIUM 125 MG CAP.SPRINK PO SCH ×2 (11:09→19:08)
[2022-03-06] MEDS: DOCUSATE SODIUM 100 MG CAPSULE PO SCH ×2 (11:09→19:08)
[2022-03-06] MEDS: METOPROLOL SUCCINATE 25 MG TAB.SR.24H PO SCH (11:10)
[2022-03-06] MEDS: ATORVASTATIN 10 MG TABLET PO SCH (11:10)
[2022-03-06] MEDS: CLOPIDOGREL BISULFATE 75 MG TABLET PO SCH (11:13)
[2022-03-06] MEDS: OLANZAPINE 2.5 MG TABLET PO SCH (11:19)
[2022-03-06] MEDS: VALSARTAN 80 MG TABLET PO SCH (11:55)
[2022-03-06 16:00] VITALS: BP 116/68
[2022-03-06 20:00] VITALS: BP 107/68
[2022-03-07 08:00] VITALS: BP 129/60
[2022-03-07] MEDS: PANTOPRAZOLE 40 MG TABLET.DR PO SCH (08:00)
[2022-03-07] MEDS: ENSURE ENLIVE CHOC 237 ML CAN PO SCH ×2 (08:07→16:28)
[2022-03-07] MEDS: VALSARTAN 80 MG TABLET PO SCH (08:31)
[2022-03-07] MEDS: MULTIVIT W/MINERALS 1 TAB TABLET PO SCH (08:31)
[2022-03-07] MEDS: DIVALPROEX SODIUM 125 MG CAP.SPRINK PO SCH ×2 (08:31→16:36)
[2022-03-07] MEDS: METOPROLOL SUCCINATE 25 MG TAB.SR.24H PO SCH (08:32)
[2022-03-07] MEDS: CHOLECALCIFEROL 1,000 UNIT TABLET (VIT D3) PO SCH (08:32)
[2022-03-07] MEDS: DOCUSATE SODIUM 100 MG CAPSULE PO SCH ×2 (08:32→16:28)
[2022-03-07] MEDS: ASPIRIN EC 81 MG TABLET.DR PO SCH (08:32)
[2022-03-07] MEDS: CLOPIDOGREL BISULFATE 75 MG TABLET PO SCH (08:33)
[2022-03-07] MEDS: OLANZAPINE 2.5 MG TABLET PO SCH (08:33)
[2022-03-07] MEDS: ATORVASTATIN 10 MG TABLET PO SCH (08:33)
[2022-03-07] MEDS: POLYETHYLENE GLYCOL 3350 17 GM POWD.PACK PO SCH (08:36)
[2022-03-07 16:00] VITALS: BP 112/67
[2022-03-07 20:00] VITALS: BP 112/62
[2022-03-07] MEDS: TEMAZEPAM 7.5 MG CAPSULE PO PRN (23:44)
[2022-03-08 07:39] LABS: CALCIUM, SERUM 9.5 mg/dL (8.5-10.1); CREATININE 1.3 mg/dL (0.6-1.3)
[2022-03-08] MEDS: PANTOPRAZOLE 40 MG TABLET.DR PO SCH (07:50)
[2022-03-08 08:00] VITALS: BP 136/74
[2022-03-08] MEDS: POLYETHYLENE GLYCOL 3350 17 GM POWD.PACK PO SCH (08:05)
[2022-03-08] MEDS: ENSURE ENLIVE CHOC 237 ML CAN PO SCH ×2 (08:05→17:07)
[2022-03-08] MEDS: CHOLECALCIFEROL 1,000 UNIT TABLET (VIT D3) PO SCH (08:06)
[2022-03-08] MEDS: ATORVASTATIN 10 MG TABLET PO SCH (08:06)
[2022-03-08] MEDS: CLOPIDOGREL BISULFATE 75 MG TABLET PO SCH (08:06)
[2022-03-08] MEDS: VALSARTAN 80 MG TABLET PO SCH (08:06)
[2022-03-08] MEDS: DIVALPROEX SODIUM 125 MG CAP.SPRINK PO SCH ×2 (08:06→16:30)
[2022-03-08] MEDS: ASPIRIN EC 81 MG TABLET.DR PO SCH (08:07)
[2022-03-08] MEDS: OLANZAPINE 2.5 MG TABLET PO SCH (08:07)
[2022-03-08] MEDS: DOCUSATE SODIUM 100 MG CAPSULE PO SCH ×2 (08:07→16:30)
[2022-03-08] MEDS: METOPROLOL SUCCINATE 25 MG TAB.SR.24H PO SCH (08:07)
[2022-03-08] MEDS: MULTIVIT W/MINERALS 1 TAB TABLET PO SCH (08:07)
[2022-03-08] MEDS: OLANZAPINE 5 MG TABLET PO SCH (09:16)
[2022-03-08 16:00] VITALS: BP 120/63
[2022-03-08] MEDS: CLOTRIMAZOLE 1% 15 GM TUBE TP SCH (16:17)
[2022-03-08 20:00] VITALS: BP 108/61
[2022-03-09 08:00] VITALS: BP 140/75
[2022-03-09] MEDS: PANTOPRAZOLE 40 MG TABLET.DR PO SCH (08:02)
[2022-03-09] MEDS: ENSURE ENLIVE CHOC 237 ML CAN PO SCH ×2 (08:02→17:22)
[2022-03-09] MEDS: CHOLECALCIFEROL 1,000 UNIT TABLET (VIT D3) PO SCH (08:26)
[2022-03-09] MEDS: DOCUSATE SODIUM 100 MG CAPSULE PO SCH ×2 (08:26→16:33)
[2022-03-09] MEDS: ASPIRIN EC 81 MG TABLET.DR PO SCH (08:26)
[2022-03-09] MEDS: POLYETHYLENE GLYCOL 3350 17 GM POWD.PACK PO SCH (08:26)
[2022-03-09] MEDS: DIVALPROEX SODIUM 125 MG CAP.SPRINK PO SCH ×2 (08:26→16:33)
[2022-03-09] MEDS: MULTIVIT W/MINERALS 1 TAB TABLET PO SCH (08:27)
[2022-03-09] MEDS: VALSARTAN 80 MG TABLET PO SCH (08:27)
[2022-03-09] MEDS: ATORVASTATIN 10 MG TABLET PO SCH (08:27)
[2022-03-09] MEDS: OLANZAPINE 5 MG TABLET PO SCH (08:27)
[2022-03-09] MEDS: CLOPIDOGREL BISULFATE 75 MG TABLET PO SCH (08:27)
[2022-03-09] MEDS: METOPROLOL SUCCINATE 25 MG TAB.SR.24H PO SCH (08:28)
[2022-03-09] MEDS: CLOTRIMAZOLE 1% 15 GM TUBE TP SCH ×2 (08:29→17:22)
[2022-03-09 16:00] VITALS: BP 110/63
[2022-03-09 20:00] VITALS: BP 120/75
[2022-03-09] MEDS: TEMAZEPAM 7.5 MG CAPSULE PO PRN (23:01)
[2022-03-10 08:00] VITALS: BP 134/66
[2022-03-10] MEDS: ENSURE ENLIVE CHOC 237 ML CAN PO SCH ×2 (08:01→16:29)
[2022-03-10] MEDS: PANTOPRAZOLE 40 MG TABLET.DR PO SCH (08:01)
[2022-03-10] MEDS: MULTIVIT W/MINERALS 1 TAB TABLET PO SCH (08:03)
[2022-03-10] MEDS: CHOLECALCIFEROL 1,000 UNIT TABLET (VIT D3) PO SCH (08:03)
[2022-03-10] MEDS: DOCUSATE SODIUM 100 MG CAPSULE PO SCH ×2 (08:03→16:28)
[2022-03-10] MEDS: ATORVASTATIN 10 MG TABLET PO SCH (08:03)
[2022-03-10] MEDS: POLYETHYLENE GLYCOL 3350 17 GM POWD.PACK PO SCH (08:03)
[2022-03-10] MEDS: OLANZAPINE 5 MG TABLET PO SCH (08:03)
[2022-03-10] MEDS: CLOPIDOGREL BISULFATE 75 MG TABLET PO SCH (08:03)
[2022-03-10] MEDS: DIVALPROEX SODIUM 125 MG CAP.SPRINK PO SCH ×2 (08:03→16:28)
[2022-03-10] MEDS: ASPIRIN EC 81 MG TABLET.DR PO SCH (08:03)
[2022-03-10] MEDS: METOPROLOL SUCCINATE 25 MG TAB.SR.24H PO SCH (08:04)
[2022-03-10] MEDS: VALSARTAN 80 MG TABLET PO SCH (08:04)
[2022-03-10] MEDS: CLOTRIMAZOLE 1% 15 GM TUBE TP SCH ×2 (09:19→16:29)
[2022-03-10 16:00] VITALS: BP 97/53
[2022-03-10 20:26] VITALS: BP 101/62
[2022-03-10] MEDS: TEMAZEPAM 7.5 MG CAPSULE PO PRN (22:24)
[2022-03-11 08:00] VITALS: BP 122/59
[2022-03-11] MEDS: DIVALPROEX SODIUM 125 MG CAP.SPRINK PO SCH ×2 (08:29→17:13)
[2022-03-11] MEDS: CHOLECALCIFEROL 1,000 UNIT TABLET (VIT D3) PO SCH (08:29)
[2022-03-11] MEDS: ASPIRIN EC 81 MG TABLET.DR PO SCH (08:29)
[2022-03-11] MEDS: ATORVASTATIN 10 MG TABLET PO SCH (08:30)
[2022-03-11] MEDS: METOPROLOL SUCCINATE 25 MG TAB.SR.24H PO SCH (08:30)
[2022-03-11] MEDS: VALSARTAN 80 MG TABLET PO SCH (08:31)
[2022-03-11] MEDS: ENSURE ENLIVE CHOC 237 ML CAN PO SCH ×2 (08:31→17:14)
[2022-03-11] MEDS: CLOPIDOGREL BISULFATE 75 MG TABLET PO SCH (08:31)
[2022-03-11] MEDS: PANTOPRAZOLE 40 MG TABLET.DR PO SCH (08:53)
[2022-03-11] MEDS: MULTIVIT W/MINERALS 1 TAB TABLET PO SCH (08:54)
[2022-03-11] MEDS: POLYETHYLENE GLYCOL 3350 17 GM POWD.PACK PO SCH (08:54)
[2022-03-11] MEDS: OLANZAPINE 5 MG TABLET PO SCH (08:54)
[2022-03-11] MEDS: DOCUSATE SODIUM 100 MG CAPSULE PO SCH ×2 (08:54→17:13)
[2022-03-11] MEDS: CLOTRIMAZOLE 1% 15 GM TUBE TP SCH ×2 (09:15→17:14)
[2022-03-11 16:00] VITALS: BP 127/61
[2022-03-11 19:52] VITALS: BP 101/52
[2022-03-11 19:53] VITALS: BP 101/52
[2022-03-12 08:00] VITALS: BP 112/63
[2022-03-12] MEDS: PANTOPRAZOLE 40 MG TABLET.DR PO SCH (08:16)
[2022-03-12] MEDS: CLOPIDOGREL BISULFATE 75 MG TABLET PO SCH (08:16)
[2022-03-12] MEDS: CHOLECALCIFEROL 1,000 UNIT TABLET (VIT D3) PO SCH (08:16)
[2022-03-12] MEDS: DIVALPROEX SODIUM 125 MG CAP.SPRINK PO SCH ×2 (08:16→17:03)
[2022-03-12] MEDS: ASPIRIN EC 81 MG TABLET.DR PO SCH (08:16)
[2022-03-12] MEDS: ATORVASTATIN 10 MG TABLET PO SCH (08:16)
[2022-03-12] MEDS: MULTIVIT W/MINERALS 1 TAB TABLET PO SCH (08:16)
[2022-03-12] MEDS: OLANZAPINE 5 MG TABLET PO SCH (08:16)
[2022-03-12] MEDS: METOPROLOL SUCCINATE 25 MG TAB.SR.24H PO SCH (08:17)
[2022-03-12] MEDS: POLYETHYLENE GLYCOL 3350 17 GM POWD.PACK PO SCH (08:18)
[2022-03-12] MEDS: CLOTRIMAZOLE 1% 15 GM TUBE TP SCH ×2 (08:18→17:03)
[2022-03-12] MEDS: VALSARTAN 80 MG TABLET PO SCH (08:18)
[2022-03-12] MEDS: ENSURE ENLIVE CHOC 237 ML CAN PO SCH ×2 (08:20→17:03)
[2022-03-12] MEDS: DOCUSATE SODIUM 100 MG CAPSULE PO SCH ×2 (09:00→17:03)
[2022-03-12 16:00] VITALS: BP 131/65
[2022-03-12 19:58] VITALS: BP 116/67
[2022-03-12] MEDS: TEMAZEPAM 7.5 MG CAPSULE PO PRN (21:46)
[2022-03-13 08:00] VITALS: BP 118/80
[2022-03-13] MEDS: ENSURE ENLIVE CHOC 237 ML CAN PO SCH ×2 (08:00→18:06)
[2022-03-13] MEDS: VALSARTAN 80 MG TABLET PO SCH (09:00)
[2022-03-13] MEDS: MULTIVIT W/MINERALS 1 TAB TABLET PO SCH (09:56)
[2022-03-13] MEDS: METOPROLOL SUCCINATE 25 MG TAB.SR.24H PO SCH (09:56)
[2022-03-13] MEDS: ASPIRIN EC 81 MG TABLET.DR PO SCH (09:56)
[2022-03-13] MEDS: CLOPIDOGREL BISULFATE 75 MG TABLET PO SCH (09:57)
[2022-03-13] MEDS: CHOLECALCIFEROL 1,000 UNIT TABLET (VIT D3) PO SCH (09:57)
[2022-03-13] MEDS: DIVALPROEX SODIUM 125 MG CAP.SPRINK PO SCH ×2 (09:57→17:40)
[2022-03-13] MEDS: DOCUSATE SODIUM 100 MG CAPSULE PO SCH ×2 (09:57→17:40)
[2022-03-13] MEDS: OLANZAPINE 5 MG TABLET PO SCH (09:57)
[2022-03-13] MEDS: PANTOPRAZOLE 40 MG TABLET.DR PO SCH (09:57)
[2022-03-13] MEDS: ATORVASTATIN 10 MG TABLET PO SCH (09:57)
[2022-03-13] MEDS: CLOTRIMAZOLE 1% 15 GM TUBE TP SCH ×2 (09:59→17:46)
[2022-03-13 16:00] VITALS: BP 109/68
[2022-03-13] MEDS: POLYETHYLENE GLYCOL 3350 17 GM POWD.PACK PO SCH (17:40)
[2022-03-13 20:06] VITALS: BP 116/67
[2022-03-13] MEDS: TEMAZEPAM 7.5 MG CAPSULE PO PRN (22:05)
[2022-03-14 08:00] VITALS: BP_SYST 121; BP_DIAS 57; BP_DIAS 67
[2022-03-14] MEDS: POLYETHYLENE GLYCOL 3350 17 GM POWD.PACK PO SCH (08:20)
[2022-03-14] MEDS: OLANZAPINE 5 MG TABLET PO SCH (08:20)
[2022-03-14] MEDS: PANTOPRAZOLE 40 MG TABLET.DR PO SCH (08:20)
[2022-03-14] MEDS: CHOLECALCIFEROL 1,000 UNIT TABLET (VIT D3) PO SCH (08:20)
[2022-03-14] MEDS: ENSURE ENLIVE CHOC 237 ML CAN PO SCH (08:20)
[2022-03-14] MEDS: DIVALPROEX SODIUM 125 MG CAP.SPRINK PO SCH (08:20)
[2022-03-14] MEDS: DOCUSATE SODIUM 100 MG CAPSULE PO SCH (08:20)
[2022-03-14] MEDS: MULTIVIT W/MINERALS 1 TAB TABLET PO SCH (08:20)
[2022-03-14] MEDS: CLOPIDOGREL BISULFATE 75 MG TABLET PO SCH (08:21)
[2022-03-14] MEDS: ATORVASTATIN 10 MG TABLET PO SCH (08:21)
[2022-03-14] MEDS: ASPIRIN EC 81 MG TABLET.DR PO SCH (08:21)
[2022-03-14 08:22] VITALS: BP 121/67
[2022-03-14] MEDS: VALSARTAN 80 MG TABLET PO SCH (08:22)
[2022-03-14] MEDS: METOPROLOL SUCCINATE 25 MG TAB.SR.24H PO SCH (08:22)
[2022-03-14] MEDS: CLOTRIMAZOLE 1% 15 GM TUBE TP SCH (10:36)
== END 2022-03-14 14:05 | disposition home or self-care (01) | DRG 881 ==
LOC: GPS 19:07
PROVIDERS: ADMIT Nurse Practitioner Psychiatric/Mental Health; ATTEND Nurse Practitioner Acute Care
DX: F32.9 Major depressive disorder, single episode, unspecified (principal); N17.0 Acute kidney failure with tubular necrosis; G93.41 Metabolic encephalopathy; I69.354 Hemiplegia and hemiparesis following cerebral infarction affecting left non-dominant side; F03.91 Unspecified dementia, unspecified severity, with behavioral disturbance; R45.851 Suicidal ideations; F29 Unspecified psychosis not due to a substance or known physiological condition; F41.9 Anxiety disorder, unspecified; E11.9 Type 2 diabetes mellitus without complications; E78.5 Hyperlipidemia, unspecified; I25.10 Atherosclerotic heart disease of native coronary artery without angina pectoris; I10 Essential (primary) hypertension; F43.10 Post-traumatic stress disorder, unspecified; Z79.02 Long term (current) use of antithrombotics/antiplatelets; Z79.82 Long term (current) use of aspirin; Z79.899 Other long term (current) drug therapy; Z90.49 Acquired absence of other specified parts of digestive tract; Z98.61 Coronary angioplasty status; F19.10 Other psychoactive substance abuse, uncomplicated; F10.10 Alcohol abuse, uncomplicated; Y90.9 Presence of alcohol in blood, level not specified; L60.3 Nail dystrophy; L89.892 Pressure ulcer of other site, stage 2; M20.41 Other hammer toe(s) (acquired), right foot; M20.42 Other hammer toe(s) (acquired), left foot; M62.562 Muscle wasting and atrophy, not elsewhere classified, left lower leg; M62.561 Muscle wasting and atrophy, not elsewhere classified, right lower leg; F39 Unspecified mood [affective] disorder; B35.3 Tinea pedis; Z91.51 Personal history of suicidal behavior
CPT/HCPCS: 36415; 80048-TC; 80061-TC; 80164-TC; 82962-TC; 85025-TC; 87081-TC; 92526; 92611-TC; 97116-TC; 97530-TC; A6403

== ENCOUNTER 2022-03-28 18:08 | Inpatient (IN) | payer MEDICARE ==
[~2022-03-28] VITALS: Ht 182.9 cm; Wt 75.3 kg
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
--- NOTE | 2022-03-28 18:20 | NUR ---
SEEN AND EXAMINED BY .
--- NOTE | 2022-03-28 18:35 | NUR ---
IV LINE ESTABLISHED BLOOD DRAWN AND SENT TO LAB.
--- NOTE | 2022-03-28 18:42 | NUR ---
URINE SPECIMEN COLLECTED AND SENT TO LAB.
[2022-03-28 19:02] LABS: CALCIUM, SERUM 8.9 mg/dL (8.5-10.1); CARBON DIOXIDE 27 mmol/L (21-32); CHLORIDE 104 mmol/L (98-107); CREATININE 1.2 mg/dL (0.6-1.3); GLUCOSE 107 mg/dL (74-106); POTASSIUM 4.3 mmol/L (3.5-5.1); SODIUM SERUM 137 mmol/L (136-145); UREA NITROGEN, BLOOD 29 mg/dL (7-18)
--- NOTE | 2022-03-28 19:10 | NUR ---
[facility] CALLED APPLICATIONS SYSTEM ANALYST PAGED.
[2022-03-28 19:15] LABS: ALANINE AMINOTRANSFERASE 55 U/L (12-78); ALBUMIN 3.4 g/dL (3.4-5.0); ALKALINE PHOSPHATASE 74 U/L (46-116); ASPARTATE AMINOTRANSFERASE 24 U/L (15-37); BILIRUBIN,DIRECT 0.1 mg/dL (0.0-0.2); BILIRUBIN,TOTAL 0.3 mg/dL (0.2-1.0); TOTAL PROTEIN, SERUM 6.5 g/dL (6.4-8.2)
--- NOTE | 2022-03-28 19:38 | NUR ---
COVID ANTIGEN SWAB COLLECTED AND SENT TO LAB
[2022-03-28] MEDS ORDERED: ASPIRIN 81 MG TAB.CHEW PO ONE (20:00)
[2022-03-28 20:29] LABS: BASOPHILS % (AUTO) 0.7 % (0.0-2.0); EOSINOPHILS % (AUTO) 4.5 % (0.0-6.0); HEMATOCRIT 31 % (39-51); HEMOGLOBIN 10.3 g/dL (13.5-17.5); LYMPHOCYTES # (AUTO) 1.1 K/uL (0.8-4.8); LYMPHOCYTES % (AUTO) 21.4 % (20.0-44.0); MEAN CORPUSCULAR HGB CONC 34 g/dl (31.0-36.0); MEAN CORPUSCULAR VOLUME 95 fL (80-96); MONOCYTES # (AUTO) 0.5 K/uL (0.1-1.30); MONOCYTES % (AUTO) 9.7 % (2.0-12.0); NEUTROPHILS # (AUTO) 3.3 K/uL (1.8-8.9); NEUTROPHILS % (AUTO) 63.7 % (43.0-81.0); PLATELET COUNT (AUTO) 208 K/uL (150-450); RED BLOOD CELL COUNT(AUTO) 3.24 MIL/uL (4.5-6.0); WHITE BLOOD COUNT (AUTO) 5.2 K/uL (4.3-11.0)
[2022-03-28] MEDS ORDERED: MAG HYDROX/AL HYDROX/SIMETH 30 ML UDC PO PRN (20:30)
[2022-03-28] MEDS ORDERED: ONDANSETRON HCL/PF 4 MG/2 ML VIAL IVP PRN (20:30)
[2022-03-28] MEDS ORDERED: ACETAMINOPHEN 325 MG TABLET PO PRN (20:30)
[2022-03-28] MEDS ORDERED: MAGNESIUM HYDROXIDE 30 ML UDC PO PRN (20:30)
[2022-03-28] MEDS ORDERED: ASPIRIN 81 MG TAB.CHEW ONE (20:32)
--- NOTE | 2022-03-28 20:46 | NUR ---
PT IS RESTING COMFORTABLY IN BED, WILL CONTINUE TO MONITOR.
--- NOTE | 2022-03-28 22:50 | NUR ---
PT IS ASLEEP AND EASILY AROUSABLE, VSS. WILL CONTINUE TO MONITOR.
[2022-03-28] MEDS: ATORVASTATIN 10 MG TABLET PO SCH (23:00)
[2022-03-28] MEDS ORDERED: ATORVASTATIN 10 MG TABLET ONE (23:09)
--- NOTE | 2022-03-29 00:04 | NUR ---
TROP 88
--- NOTE | 2022-03-29 01:25 | NUR ---
URINAL PROVIDED TO PT, WILL CONTINUE TO MONITOR.
[2022-03-29 05:17] LABS: EOSINOPHILS % (AUTO) 4.5 % (0.0-6.0); HEMATOCRIT 32 % (39-51); HEMOGLOBIN 10.5 g/dL (13.5-17.5); LYMPHOCYTES # (AUTO) 1.4 K/uL (0.8-4.8); LYMPHOCYTES % (AUTO) 31.5 % (20.0-44.0); MEAN CORPUSCULAR HGB CONC 33 g/dl (31.0-36.0); MEAN CORPUSCULAR VOLUME 94 fL (80-96); MONOCYTES # (AUTO) 0.4 K/uL (0.1-1.30); MONOCYTES % (AUTO) 8.6 % (2.0-12.0); NEUTROPHILS # (AUTO) 2.4 K/uL (1.8-8.9); NEUTROPHILS % (AUTO) 54.4 % (43.0-81.0); PLATELET COUNT (AUTO) 208 K/uL (150-450); RED BLOOD CELL COUNT(AUTO) 3.36 MIL/uL (4.5-6.0); WHITE BLOOD COUNT (AUTO) 4.4 K/uL (4.3-11.0)
[2022-03-29 05:33] LABS: CALCIUM, SERUM 8.9 mg/dL (8.5-10.1); CARBON DIOXIDE 27 mmol/L (21-32); CHLORIDE 104 mmol/L (98-107); CREATININE 1.1 mg/dL (0.6-1.3); GLUCOSE 92 mg/dL (74-106); MAGNESIUM 1.8 mg/dL (1.8-2.4); PHOSPHORUS 4.7 mg/dL (2.5-4.9); POTASSIUM 3.9 mmol/L (3.5-5.1); SODIUM SERUM 139 mmol/L (136-145); UREA NITROGEN, BLOOD 25 mg/dL (7-18)
--- NOTE | 2022-03-29 05:43 | NUR ---
PT IS SLEEPING, CONNECTED TO MONITOR. VSS.
--- NOTE | 2022-03-29 05:47 | NUR ---
TROPONIN 84
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
--- NOTE | 2022-03-29 08:00 | NUR ---
BREAKFAST TRAY PROVIDED
[2022-03-29] MEDS: ASPIRIN 81 MG TAB.CHEW PO SCH (09:00)
--- NOTE | 2022-03-29 09:20 | NUR ---
Callahan a loud noise in nursing station - went around the department asnd found him on the ground near the sink. Pt states "i fell an hit my head. Also have pain R hip- cant move it". Awake,Alert. Dr Redd Notified of incident. Mode Rueda calling admitting provider for orders
--- NOTE | 2022-03-29 09:41 | NUR ---
DR BOYER MADE AWARE OF PATIENT`S FALL INCIDENT AND RECEIVED ORDERS OF RIGHT HIP XRAY AND CT OF HEAD WO. THE ORDER IS READ BACK, VERIFIED. NOTED AND CARRIED OUT.
--- NOTE | 2022-03-29 10:00 | NUR ---
UNABLE TO REACH RAUL (THE PHONE NUMBER NOT WORKING), LEFT MSG TO [phone]
--- NOTE | 2022-03-29 10:25 | NUR ---
RIGHT HIP XRAY AND CT OF HEAD WO CHANGED TO STAT PER DR BOYER.
[2022-03-29] MEDS ORDERED: LORAZEPAM INJ 2 MG/ML VIAL IV ONE (11:00)
[2022-03-29] MEDS ORDERED: MORPHINE SULFATE INJ 2 MG/ML DISP.SYRIN ONE (12:13)
--- NOTE | 2022-03-29 12:13 | NUR ---
RECEIVED AN ORDER OF DR BOYER: MORPHINE 2 MG IV PUSH Q4HR PRN. MADE AWARE THAT THE PATIENT HAS ALLERGY TO CODEINE BUT THE PATIENT STILL ORDERED MORPHINE. THE ORDER IS READ BACK, VERIFIED. NOTED AND CARRIED OUT.
[2022-03-29] MEDS: MORPHINE SULFATE INJ 2 MG/ML DISP.SYRIN IV PRN (12:20)
[2022-03-29] MEDS ORDERED: LORAZEPAM INJ 2 MG/ML VIAL ONE ×2 (13:00→13:58)
--- NOTE | 2022-03-29 13:15 | NUR ---
DR BOYER MADE AWARE OF RIGHT HIP X-RAY RESULT. NO NEW ORDERS AT THIS TIME.
--- NOTE | 2022-03-29 13:35 | NUR ---
ASHLEY CALLED DR. ROSALIND ROWLAND.
--- NOTE | 2022-03-29 13:47 | NUR ---
RECEIVED NEW ORDER FROM DR BOYER: ATIVAN 1 MG IVP Q4HR PRN. THE ORDER IS READ BACK, VERIFIED. NOTED AND CARRIED OUT.
[2022-03-29] MEDS: LORAZEPAM INJ 2 MG/ML VIAL IV PRN ×2 (14:12→22:30)
--- NOTE | 2022-03-29 16:30 | NUR ---
room 310-2
--- NOTE | 2022-03-29 16:42 | NUR ---
REPORT GIVEN TO NURSE ENCARNACION FOR SONDRA
--- NOTE | 2022-03-29 16:57 | NUR ---
THE PATIENT IS TRANSFERED TO ROOM 310-2 IN STABLE CONDITION AND PER POLICY.
--- NOTE | 2022-03-29 19:00 | NUR ---
PROFESSOR OF FINE ART NOTE TRIED TO CALL THE [employer] AT [phone] BUT NUMBER IS NOT WORKING. CALLED PATIENT'S HOME PHONE NUMBER, [employer] [phone]. LEFT [employer] TO CALL BACK IF SHE KNOWS PATIENT OR THE . PATIETN UNABLE TO MAKE HIS OWN DECISION. WILL ENDORSE TO NEXT SHIFT. STILL TO SECURE CONSENT FOR PROCEDURE.
--- NOTE | 2022-03-29 19:10 | NUR ---
RN NOTE PATIENT IS RESPONSIVE TO LOUD CALL OR LIGHT TOUCH. PATIENT APPEARS TO BE ORIENTED TO SELF ONLY WITH SOME SLURRING OF SPEECH WITH SOME DROWSINESS PROBABLY RELATED TO MORPHINE GIVEN AT ER. PATIENT MAINTAINED ON NORMAL BODY ALIGNMENT. COMFORT MEASURES PROVIDED. WITH OXYGEN AT 3LPM VIA NASAL CANULA WITH NO RESPIRATORY DISTRESS NOTED. WITH RIGHT FA G 18 ON SALINE LOCK, PATENT AND INTACT. SAFETY MEASURES ENSURED WITH BED LOCKED AND AT LOWEST POSITION. SIDERAILS RAISED AND CALL LIGHT WITHIN REACH AT ALL TIMES. APPEARS COMFORTABLE AT THIS TIME. STILL TO SECURE CONSENT FOR SURGERY AND CLEARANCE. ENDORSED TO NEXT SHIFT FOR CONTINUITY OF CARE.
--- NOTE | 2022-03-29 19:50 | NUR ---
RN OPENING NOTES PT RECEIVED IN BED AAOX1 WITH CONFUSION.3L NASAL CANNULA INPLCE NO SIGN SOB/DISTRESS NOTED.BREATHING EVEN UNLABORED.IV ACCESS RFA #18G SL.ALL DUE MEDS GIVEN ORDERED.ALL NEEDS ATTENDED.PT SCHEDULE FOR SURGERY TODAY @0800 INFORM CONSENT WAS DONE VIA TELEPHONE BY EDYTA MALCOLM.CALL LIGHT WITH REACH.SAFETY MEASURED INPLACE BED LOCKED AND LOW POSITION.WILL ENDORSE TO NEXT SHIFT.
[2022-03-29 20:00] VITALS: BP 126/69
[2022-03-29] MEDS: ATORVASTATIN 10 MG TABLET PO SCH (22:30)
--- NOTE | 2022-03-29 23:56 | NUR ---
RN NOTES. PT WAS ANXIOUS.YELLING NOTED.ATIVAN 1MG PRN WAS GIVEN,EFFECTIVE
[2022-03-30] VITALS: BP 144/69
[2022-03-30] MEDS: MORPHINE SULFATE INJ 2 MG/ML DISP.SYRIN IV PRN ×3 (00:19→21:04)
--- NOTE | 2022-03-30 00:20 | NUR ---
RN NOTES PT COMPLAINED OF PAIN BLE 07/21.PRN MORPHINE 2MG WAS GIVEN.EFFECTIVE
[2022-03-30 05:20] VITALS: BP 154/73
--- NOTE | 2022-03-30 05:55 | NUR ---
RN NOTES PT COMPLAINED OF PAIN BLE 07/21.PRN MORPHINE 2MG WAS GIVEN.EFFECTIVE.
--- NOTE | 2022-03-30 07:00 | NUR ---
CORROSION CONTROL SPECIALIST OPENING NOTES PATIENT OFF OF UNIT AT THIS TIME FOR SURGERY, WILL ASSESS PATIENT UPON RETURN TO UNIT.
[2022-03-30] MEDS ORDERED: ROCURONIUM BROMIDE 50 MG/5 ML ONE (07:50)
[2022-03-30] MEDS ORDERED: HYDROMORPHONE INJ 2 MG/ML DISP.SYRIN ONE (07:50)
[2022-03-30] MEDS ORDERED: VANCOMYCIN 1 GM VIAL ONE (08:01)
[2022-03-30] MEDS ORDERED: BUPIVACAINE 0.5 % PF 150 MG/30 ML VIAL ONE (08:01)
--- NOTE | 2022-03-30 08:32 | NUR ---
WOUND CARE CONSULT: PT OFF UNIT AT THIS TIME HAVING SURGERY. PER NURSING DOCUMENTATION, THERE IS A DRY WOUND TO RT 2ND TOE, PRESENT ON ADMISSION. DR ESCALONA NOTIFIED OF DPM CONSULT REQUEST. IN AGREEMENT WITH PLAN OF CARE.
[2022-03-30] MEDS ORDERED: Z GUARD REMEDY 4 OZ OINT TP PRN (09:00)
[2022-03-30] MEDS: Z GUARD REMEDY 4 OZ OINT TP SCH (09:00)
[2022-03-30] MEDS: ASPIRIN 81 MG TAB.CHEW PO SCH (09:00)
[2022-03-30 10:34] LABS: ALBUMIN 3.4 g/dL (3.4-5.0); BILIRUBIN,TOTAL 0.8 mg/dL (0.2-1.0); CREATININE 1.2 mg/dL (0.6-1.3); MAGNESIUM 1.7 mg/dL (1.8-2.4); PHOSPHORUS 4.2 mg/dL (2.5-4.9); TOTAL PROTEIN, SERUM 6.7 g/dL (6.4-8.2)
--- NOTE | 2022-03-30 11:00 | NUR ---
SLATE HANDLER RECEIVING NOTES RECEIVED PATIENT VIA YARONRLIZ FROM OR, PATIENT A/O X 1, LETHARGIC, WITH R FA # 18 G CLEAN, INTACT, AND FLUSHING WELL. NICOLE CATHETER IN PLACE DRAINING CLEAR YELLOW URINE TO GRAVITY. FOAM WEDGE IN PLACE BETWEEN BOTH LEGS FOR SUPPORT FOLLOWING SURGERY. TELE MONITOR IN PLACE READING NSR 78. SAFETY MEASURES IN PLACE: BED IN LOWEST LOCKED POSITION, SIDE RAILS UP X 2, CALL LIGHT WITHIN REACH. WILL CONTINUE TO MONITOR. Addendum: 03/30/22 at 2058 by CLEMENTINE ANNA RN PATIENT TOLERATING WELL ON 3 LPM O2 CONTINUOUS VIA CANNULA WITH NO SOB OR S/S RESPIRATORY DISTRESS UPON ARRIVAL TO UNIT AT 1100
[2022-03-30] MEDS: IV PREMIX D5 1/2NS + KCL 1,000 ML IV SCH (11:36)
[2022-03-30 11:46] LABS: BASOPHILS % (AUTO) 0.2 % (0.0-2.0); EOSINOPHILS % (AUTO) 0.7 % (0.0-6.0); HEMATOCRIT 28 % (39-51); HEMOGLOBIN 9.4 g/dL (13.5-17.5); LYMPHOCYTES # (AUTO) 0.4 K/uL (0.8-4.8); LYMPHOCYTES % (AUTO) 4.3 % (20.0-44.0); MEAN CORPUSCULAR HGB CONC 33 g/dl (31.0-36.0); MEAN CORPUSCULAR VOLUME 95 fL (80-96); MONOCYTES # (AUTO) 0.4 K/uL (0.1-1.30); MONOCYTES % (AUTO) 4.5 % (2.0-12.0); NEUTROPHILS # (AUTO) 7.5 K/uL (1.8-8.9); NEUTROPHILS % (AUTO) 90.3 % (43.0-81.0); PLATELET COUNT (AUTO) 177 K/uL (150-450); RED BLOOD CELL COUNT(AUTO) 2.99 MIL/uL (4.5-6.0); WHITE BLOOD COUNT (AUTO) 8.3 K/uL (4.3-11.0)
--- NOTE | 2022-03-30 13:24 | NUR ---
SS received consult for locating family. SW called pt.'s brother Rasta [[phone]] and confirmed that this is his temporary number.
[2022-03-30] MEDS: ANCEF 1 GM/50 ML D5W IV SCH ×4 (16:36→23:48)
[2022-03-30] MEDS ORDERED: MAGNESIUM OXIDE 400 MG TABLET PO ONE (17:00)
[2022-03-30] MEDS: LORAZEPAM INJ 2 MG/ML VIAL IV PRN (17:46)
--- NOTE | 2022-03-30 17:46 | NUR ---
WOOL HAT FINISHER NOTES PATIENT NOTED WITH ANXIETY AND REQUESTING MEDICATION. PRN ATIVAN 0.5 MG IVP ADMINISTERED ORDERED. WILL CONTINUE TO MONITOR S/S AGITATION.
--- NOTE | 2022-03-30 19:00 | NUR ---
PERINATAL EDUCATOR CLOSING NOTE PATIENT LAYING IN BED, A/O X 3 BUT WITH SLURRED SPEECH, ABLE TO MAKE NEEDS KNOWN. R FA # 18 G CLEAN, INTACT, AND FLUSHING WELL WITH 20 MEQ KCL IN D5W @ 75 ML/HR. FOAM WEDGE IN PLACE BETWEEN BOTH LEGS. TELE MONITOR IN PLACE READING NSR 82. NICOLE CATHETER IN PLACE DRAINING CLEAR YELLOW URINE TO GRAVITY. SAFETY MEASURES IN PLACE: BED IN LOWEST LOCKED POSITION, SIDE RAILS UP X 2, CALL LIGHT WITHIN REACH. ALL NEEDS MET. WILL ENDORSE TO MEASUREMENT SPECIALIST FOR SONDRA.
--- NOTE | 2022-03-30 19:32 | NUR ---
RN OPENING NOTES PT RECEIVED IN BED AAOX1 WITH CONFUSION.ON RM AIR BAUTISTA WELL, NO SIGN SOB/DISTRESS NOTED.BREATHING EVEN UNLABORED.PT NOTED EPISODE OF YELLING,SCREAMING.NO COMPLAINE OF PAIN /DISCOMFORT.IV ACCESS LLA #18G.CALL LIGHT WITH REACH.SAFETY MEASURED INPLACE BED LOCKED AND LOW POSITION.WILL CONTINUE TO MONITOR.
[2022-03-30 20:00] VITALS: BP 102/59
[2022-03-30] MEDS: ATORVASTATIN 10 MG TABLET PO SCH (21:04)
--- NOTE | 2022-03-30 21:05 | NUR ---
RN NOTES PT COMPLAINED PAIN 9/10,ON RIGHT HIP.PRN MORPHINE 2MG IVP GIVEN.EFFECTIVE.NO SIGN RESPIRATORY DISTRESS NOTED.
[2022-03-31] VITALS: BP 106/59
[2022-03-31] MEDS: IV PREMIX D5 1/2NS + KCL 1,000 ML IV SCH ×2 (00:36→12:10)
[2022-03-31 03:38] VITALS: BP 102/59
[2022-03-31 04:00] VITALS: BP 110/64
--- NOTE | 2022-03-31 07:14 | NUR ---
CATTLE TRADER CLOSING NOTE PATIENT DEVIN/O X 3 BUT WITH SLURRED SPEECH, ABLE TO MAKE NEEDS KNOWN. R FA # 18 G CLEAN, INTACT, AND FLUSHING WELL.FOAM WEDGE IN PLACE BETWEEN BOTH LEGS. TELE MONITOR IN PLACE READING NSR [address] DRAINING CLEAR YELLOW URINE TO GRAVITY. SAFETY MEASURES IN PLACE: BED IN LOWEST LOCKED POSITION, SIDE RAILS UP X 2, CALL LIGHT WITHIN REACH. ALL NEEDS MET. WILL ENDORSE TO CHIP UNLOADER FOR SONDRA.
--- NOTE | 2022-03-31 07:30 | NUR ---
CHIEF FUNDRAISING OFFICER OPENING NOTES RECEIVED PATIENT ON BED, AWAKE AND A/O X1. ON ROOM AIR TOLERATING WELL. NO SOB NOTED. NOT IN DISTRESS. WITH COMPLAINTS OF PAIN AT THE RIGHT HIP AT THE SCALE OF 6/10. COMFORT MEASURES PROVIDED. ON TELE MONITOR CURRENTLY READING SINUS RHYTHM AT 71BPM. WITH IV ACCESS AT THE LEFT HAND G18 WITH D5 1/2NS + 20mEq KCl at 75ml/hr INFUSING WELL. SAFETY MEASURES IN PLACED. CALL LIGHT WITHIN REACH. BED ON LOWEST LOCKED POSITION, SIDE RAILS UP X2. WILL CONTINUE TO MONITOR.
--- NOTE | 2022-03-31 07:30 | NUR ---
CIRCULATION WORKER OPENING NOTES RECEIVED PATIENT ON BED, AWAKE AND A/O X4. ON ROOM AIR TOLERATING WELL. NO SOB NOTED. NOT IN DISTRESS. WITH COMPLAINTS OF PAIN AT THE RIGHT HIP AT THE SCALE OF 6/10. COMFORT MEASURES PROVIDED. ON TELE MONITOR CURRENTLY READING SINUS RHYTHM AT 71BPM. WITH IV ACCESS AT THE LEFT HAND G18 WITH D5 1/2NS + 20mEq KCl at 75ml/hr INFUSING WELL. SAFETY MEASURES IN PLACED. CALL LIGHT WITHIN REACH. BED ON LOWEST LOCKED POSITION, SIDE RAILS UP X2. WILL CONTINUE TO MONITOR. Addendum: 03/31/22 at 1431 by JERRY KIMBLE RN ERROR.
[2022-03-31 07:57] VITALS: BP 108/61
[2022-03-31 08:35] LABS: BASOPHILS % (AUTO) 0.4 % (0.0-2.0); HEMATOCRIT 24 % (39-51); LYMPHOCYTES # (AUTO) 0.9 K/uL (0.8-4.8); LYMPHOCYTES % (AUTO) 15.5 % (20.0-44.0); MEAN CORPUSCULAR HGB CONC 34 g/dl (31.0-36.0); MEAN CORPUSCULAR VOLUME 96 fL (80-96); MONOCYTES # (AUTO) 0.7 K/uL (0.1-1.30); MONOCYTES % (AUTO) 11.8 % (2.0-12.0); NEUTROPHILS # (AUTO) 3.7 K/uL (1.8-8.9); NEUTROPHILS % (AUTO) 67.3 % (43.0-81.0); PLATELET COUNT (AUTO) 160 K/uL (150-450); RED BLOOD CELL COUNT(AUTO) 2.51 MIL/uL (4.5-6.0); WHITE BLOOD COUNT (AUTO) 5.6 K/uL (4.3-11.0)
[2022-03-31] MEDS: MORPHINE SULFATE INJ 2 MG/ML DISP.SYRIN IV PRN ×3 (08:39→21:59)
[2022-03-31] MEDS: ASPIRIN 81 MG TAB.CHEW PO SCH (08:43)
[2022-03-31] MEDS: Z GUARD REMEDY 4 OZ OINT TP SCH (08:43)
[2022-03-31 09:03] LABS: CREATININE 1.2 mg/dL (0.6-1.3); MAGNESIUM 1.9 mg/dL (1.8-2.4); PHOSPHORUS 3.7 mg/dL (2.5-4.9); POTASSIUM 4.2 mmol/L (3.5-5.1)
[2022-03-31] MEDS: LORAZEPAM INJ 2 MG/ML VIAL IV PRN (10:32)
[2022-03-31] MEDS: DIVALPROEX SODIUM 125 MG CAP.SPRINK PO SCH ×2 (12:10→16:26)
[2022-03-31 16:00] VITALS: BP 114/65
[2022-03-31] MEDS: DOCUSATE SODIUM 100 MG CAPSULE PO SCH (16:26)
--- NOTE | 2022-03-31 18:26 | NUR ---
PRODUCT DEVELOPER CLOSING NOTES PATIENT ON BED, AWAKE AND A/O X1. ON ROOM AIR TOLERATING WELL. NO SOB NOTED. NOT IN DISTRESS. WITH COMPLAINTS OF PAIN AT THE RIGHT HIP AT THE SCALE OF 9/10 AND SCREAMING. COMFORT MEASURES PROVIDED. ON TELE MONITOR CURRENTLY READING SINUS RHYTHM AT 81BPM. WITH IV ACCESS AT THE LEFT HAND G18 WITH D5 1/2NS + 20mEq KCl at 75ml/hr INFUSING WELL. DUE MEDS GIVEN. SAFETY MEASURES IN PLACED. CALL LIGHT WITHIN REACH. BED ON LOWEST LOCKED POSITION, SIDE RAILS UP X2. WILL ENDORSE TO NEXT SHIFT FOR SONDRA.
--- NOTE | 2022-03-31 19:27 | NUR ---
RN OPENING NOTES RECEIVED PT IN BED, AWAKE, YELLING AND CUSSING. AOx1-2. ON RA AND TOLERATING WELL. NO SOB NOTED. NO S/SX OF RESPIRATORY DISTRESS NOTED. TELE MONITOR DETECTS SINUS RHYTHM. IV ACCESS IN L HAND #18G RUNNING D5 1/2 NS WITH 20 MEQ KCl @ 75 ML/HR. SAFETY PRECAUTIONS IN PLACE: BED IN LOWEST, LOCKED POSITION, SIDERAILS UPx2, AND BRAKES ON. TABLE AND CALL LIGHT WITHIN REACH. WILL CONTINUE TO MONITOR.
[2022-03-31] MEDS: HYDROCODONE/APAP 10/325MG TABLET PO PRN ×2 (19:49→23:31)
--- NOTE | 2022-03-31 19:49 | NUR ---
RN NOTES ADMINISTERED NORCO FOR PAIN PER MD ORDER. VS WNL. WILL CONTINUE TO MONITOR.
[2022-03-31 20:00] VITALS: BP 119/51
[2022-03-31] MEDS: ATORVASTATIN 10 MG TABLET PO SCH (21:21)
--- NOTE | 2022-03-31 22:00 | NUR ---
ADMINISTERED MORPHINE FOR PAIN PER MD ORDER. VS WNL. WILL CONTINUE TO MONITOR.
[2022-03-31] MEDS: ZOLPIDEM TARTRATE 5 MG TABLET PO PRN (23:27)
--- NOTE | 2022-03-31 23:27 | NUR ---
RN NOTE ADMINISTERED AMBIEN FOR SLEEP PER PT REQUEST.
[2022-04-01] VITALS: BP 116/62
--- NOTE | 2022-04-01 00:04 | NUR ---
RN NOTES PATIENT COMPLAINED OF PAIN SO NORCO WAS ADMINISTERED. AMBIEN WAS NOT ADMINISTERED. RETURNED TO [facility].
[2022-04-01] MEDS: IV PREMIX D5 1/2NS + KCL 1,000 ML IV SCH ×2 (02:43→16:20)
[2022-04-01 04:00] VITALS: BP 106/76
[2022-04-01] MEDS: MORPHINE SULFATE INJ 2 MG/ML DISP.SYRIN IV PRN ×3 (05:13→20:31)
--- NOTE | 2022-04-01 05:13 | NUR ---
RN NOTES ADMINISTERED MORPHINE FOR PAIN PER MD ORDER. VS WNL. WILL CONTINUE TO MONITOR.
--- NOTE | 2022-04-01 06:43 | NUR ---
REMOVED TELE BOX FROM PATIENT PER DR. CUTLER'S ORDERS. CHARGE NURSE AWARE
--- NOTE | 2022-04-01 06:48 | NUR ---
RN CLOSING NOTES PT IN BED, ASLEEP, AWAKENS TO VERBAL AND TACTILE STIMULI. AOx4, ABLE TO MAKE NEEDS KNOWN. ON RA AND TOLERATING WELL. NO SOB NOTED. NO S/SX OF RESPIRATORY DISTRESS NOTED. TELE MONITOR REMOVED PER DR. CUTLER'S ORDER. IV ACCESS IN L HAND #18G RUNNING D5 1/2 NS WITH 20 MEQ KCl @ 75 ML/HR. ALL ORDERS CARRIED OUT. ALL NEEDS MET. PT KEPT CLEAN AND DRY. SAFETY PRECAUTIONS IN PLACE: BED IN LOWEST, LOCKED POSITION, SIDERAILS UPx2, AND BRAKES ON. TABLE AND CALL LIGHT WITHIN REACH. WILL ENDORSE TO ONCOMING SHIFT FOR SONDRA.
[2022-04-01 07:20] LABS: BASOPHILS % (AUTO) 0.5 % (0.0-2.0); EOSINOPHILS % (AUTO) 8.3 % (0.0-6.0); HEMATOCRIT 23 % (39-51); HEMOGLOBIN 7.6 g/dL (13.5-17.5); LYMPHOCYTES # (AUTO) 1.2 K/uL (0.8-4.8); LYMPHOCYTES % (AUTO) 20.3 % (20.0-44.0); MEAN CORPUSCULAR HGB CONC 33 g/dl (31.0-36.0); MEAN CORPUSCULAR VOLUME 96 fL (80-96); MONOCYTES # (AUTO) 0.8 K/uL (0.1-1.30); MONOCYTES % (AUTO) 14.1 % (2.0-12.0); NEUTROPHILS # (AUTO) 3.3 K/uL (1.8-8.9); NEUTROPHILS % (AUTO) 56.8 % (43.0-81.0); PLATELET COUNT (AUTO) 170 K/uL (150-450); RED BLOOD CELL COUNT(AUTO) 2.36 MIL/uL (4.5-6.0); WHITE BLOOD COUNT (AUTO) 5.8 K/uL (4.3-11.0)
--- NOTE | 2022-04-01 07:20 | NUR ---
RN OPENING NOTES RECEIVED PATIENT IN BED, AWAKE, VERBALLY RESPONSIVE, NO SIGNS OF ACUTE DISTRESS NOTED. STABLE ON ROOM AIR, NO SOB NOTED, BREATHING EVEN AND UNLABORED. NO C/O PAIN AT THIS TIME. NOTED WITH IV ACCESS ON LEFT HAND #20G, INTACT AND PATENT WITH D5 1/2 NS+20 MEQ KCL RUNNING AT 75 ML/HR. SAFETY MEASURE IN PLACE. BED IN LOWEST AND LOCKED POSITION, SIDE RAILS UP X2, CALL LIGHT PLACED WITHIN EASY REACH. WILL CONTINUE TO MONITOR PATIENT.
[2022-04-01 07:26] LABS: CALCIUM, SERUM 8.4 mg/dL (8.5-10.1); CARBON DIOXIDE 26 mmol/L (21-32); CHLORIDE 103 mmol/L (98-107); CREATININE 1.1 mg/dL (0.6-1.3); GLUCOSE 102 mg/dL (74-106); PHOSPHORUS 3.5 mg/dL (2.5-4.9); POTASSIUM 4.4 mmol/L (3.5-5.1); SODIUM SERUM 135 mmol/L (136-145); UREA NITROGEN, BLOOD 28 mg/dL (7-18)
[2022-04-01] MEDS: MULTIVIT W/MINERALS 1 TAB TABLET PO SCH (08:30)
[2022-04-01] MEDS: DOCUSATE SODIUM 100 MG CAPSULE PO SCH ×2 (08:30→16:22)
[2022-04-01] MEDS: DIVALPROEX SODIUM 125 MG CAP.SPRINK PO SCH ×3 (08:31→16:22)
[2022-04-01] MEDS: METOPROLOL SUCCINATE 25 MG TAB.SR.24H PO SCH (08:31)
[2022-04-01] MEDS: CHOLECALCIFEROL 1,000 UNIT TABLET (VIT D3) PO SCH (08:31)
[2022-04-01] MEDS: ASPIRIN 81 MG TAB.CHEW PO SCH (08:31)
[2022-04-01] MEDS: CLOPIDOGREL BISULFATE 75 MG TABLET PO SCH (08:31)
[2022-04-01] MEDS: Z GUARD REMEDY 4 OZ OINT TP SCH (08:33)
[2022-04-01] MEDS: VALSARTAN 80 MG TABLET PO SCH (08:33)
[2022-04-01] MEDS ORDERED: ASPIRIN EC 81 MG TABLET.DR PO SCH (09:00)
[2022-04-01] MEDS ORDERED: ATORVASTATIN 10 MG TABLET PO SCH (09:00)
[2022-04-01] MEDS: HYDROCODONE/APAP 10/325MG TABLET PO PRN ×3 (09:46→22:26)
--- NOTE | 2022-04-01 18:51 | NUR ---
RN CLOSING NOTES PATIENT RESTING IN BED, EASILY AROUSED. NO SIGNS OF ACUTE DISTRESS NOTED. REMAINS STABLE ON ROOM AIR, NO SOB NOTED, BREATHING EVEN AND UNLABORED. ALL DUE MEDS GIVEN, TOLERATED WELL. NOTED WITH IV ACCESS ON LEFT HAND #20G, INTACT AND PATENT WITH D5 1/2 NS+20 MEQ KCL RUNNING AT 75 ML/HR. MEDICATED FOR PAIN NEEDED. SAFETY MEASURE IN PLACE. BED IN LOWEST AND LOCKED POSITION, SIDE RAILS UP X2, CALL LIGHT PLACED WITHIN EASY REACH. WILL ENDORSE TO NEXT SHIFT FOR CONTINUITY OF CARE.
[2022-04-01 20:00] VITALS: BP 134/67
--- NOTE | 2022-04-01 20:48 | NUR ---
MS/RN OPENING NOTE RECEIVED PATIENT RESTING IN BED. AWAKE, ALERT AND ORIENTED X 4. ABLE TO MAKE NEEDS KNOWN. DENIES PAIN AT THIS TIME. CONTINUES ON ROOM AIR WITH NO S/SX OF RESPIRATORY DISTRESS NOTED. IV ACCESS TO LEFT HAND #20G INTACT AND PATENT. CONTINUES ON IVF D5 1/2 NS WITH 20MEQ KCL RUNNING @ 75ML/HR. NICOLE CATHETER IN PLACE DRAINING CLEAR, YELLOW URINE TO GRAVITY. CALL LIGHT WITHIN REACH. ASPIRATION, FALL AND SAFETY PRECAUTIONS MAINTAINED. ALL NEEDS ATTENDED TO AT THIS TIME.
[2022-04-01] MEDS: ATORVASTATIN 10 MG TABLET PO SCH (22:26)
[2022-04-01] MEDS: ZOLPIDEM TARTRATE 5 MG TABLET PO PRN (22:38)
[2022-04-02] MEDS: LORAZEPAM INJ 2 MG/ML VIAL IV PRN ×2 (01:37→20:13)
--- NOTE | 2022-04-02 01:56 | NUR ---
MS/RN NOTE PATIENT WITH C/O INCREASED ANXIETY. STATES HE IS HAVING A PANIC ATTACK. WENT TO ADMINISTER ATIVAN PRN IVP BUT IV SITE INFILTRATED. IV DISCONTINUED WITH TIP INTACT AND PATIENT TOLERATING WELL. PRESSURE DRESSING APPLIED. NEW IV PLACED TO RIGHT FOREARM #20G. ATIVAN IVP ADMINISTERED. NO OTHER COMPLAINTS FROM PATIENT AT THIS TIME.
[2022-04-02] MEDS: HYDROCODONE/APAP 10/325MG TABLET PO PRN ×3 (02:31→16:03)
[2022-04-02] MEDS: MORPHINE SULFATE INJ 2 MG/ML DISP.SYRIN IV PRN ×3 (05:44→21:30)
[2022-04-02] MEDS: IV PREMIX D5 1/2NS + KCL 1,000 ML IV SCH ×2 (05:46→19:30)
--- NOTE | 2022-04-02 06:10 | NUR ---
MS/RN CLOSING NOTE PATIENT CURRENTLY SLEEPING IN BED. ALERT AND ORIENTED X 4. ABLE TO MAKE NEEDS KNOWN. DENIES PAIN AT THIS TIME. CONTINUES ON ROOM AIR WITH NO S/SX OF RESPIRATORY DISTRESS NOTED. IV ACCESS TO RIGHT FOREARM #20G INTACT AND PATENT. CONTINUES ON IVF D5 1/2 NS WITH 20MEQ KCL RUNNING @ 75ML/HR. NICOLE CATHETER IN PLACE DRAINING CLEAR, YELLOW URINE TO GRAVITY. TOTAL OUTPUT THIS SHIFT WAS 1200CC. CALL LIGHT WITHIN REACH. ASPIRATION, FALL AND SAFETY PRECAUTIONS MAINTAINED. WILL ENDORSE PLAN OF CARE TO ONCOMING SHIFT.
--- NOTE | 2022-04-02 06:30 | NUR ---
MS/RN NOTE PATIENTS BLOOD SUGAR THIS AM IS 188. PATIENT IS NPO FOR CARDIAC CATH TODAY. WILL HOLD INSULIN SS. Addendum: 04/02/22 at 0651 by ZAHIRA GARCIA RN WRONG PATIENT.
[2022-04-02 06:46] LABS: BASOPHILS % (AUTO) 0.7 % (0.0-2.0); EOSINOPHILS % (AUTO) 8.9 % (0.0-6.0); HEMATOCRIT 22 % (39-51); HEMOGLOBIN 7.5 g/dL (13.5-17.5); LYMPHOCYTES % (AUTO) 17.9 % (20.0-44.0); MEAN CORPUSCULAR HGB CONC 34 g/dl (31.0-36.0); MEAN CORPUSCULAR VOLUME 96 fL (80-96); MONOCYTES # (AUTO) 0.8 K/uL (0.1-1.30); NEUTROPHILS # (AUTO) 3.4 K/uL (1.8-8.9); NEUTROPHILS % (AUTO) 59.5 % (43.0-81.0); PLATELET COUNT (AUTO) 199 K/uL (150-450); RED BLOOD CELL COUNT(AUTO) 2.32 MIL/uL (4.5-6.0); WHITE BLOOD COUNT (AUTO) 5.8 K/uL (4.3-11.0)
[2022-04-02 07:22] LABS: CALCIUM, SERUM 8.9 mg/dL (8.5-10.1); CREATININE 1.1 mg/dL (0.6-1.3); POTASSIUM 4.6 mmol/L (3.5-5.1)
[2022-04-02 07:23] LABS: PHOSPHORUS 4.1 mg/dL (2.5-4.9)
--- NOTE | 2022-04-02 07:30 | NUR ---
PT RECEIVED RESTING COMFORTABLY IN BED. NO S/S OR C/O PAIN OR DISTRESS NOTED. SIDE RAILS UP X2, CALL LIGHT LEFT WITHIN REACH. WILL CONTINUE PLAN OF CARE.
[2022-04-02 08:02] VITALS: BP 132/70
[2022-04-02] MEDS: MULTIVIT W/MINERALS 1 TAB TABLET PO SCH (08:08)
[2022-04-02] MEDS: DOCUSATE SODIUM 100 MG CAPSULE PO SCH ×2 (08:08→16:03)
[2022-04-02] MEDS: ASPIRIN 81 MG TAB.CHEW PO SCH (08:08)
[2022-04-02] MEDS: DIVALPROEX SODIUM 125 MG CAP.SPRINK PO SCH ×3 (08:09→16:03)
[2022-04-02] MEDS: METOPROLOL SUCCINATE 25 MG TAB.SR.24H PO SCH (08:09)
[2022-04-02] MEDS: CLOPIDOGREL BISULFATE 75 MG TABLET PO SCH (08:09)
[2022-04-02] MEDS: CHOLECALCIFEROL 1,000 UNIT TABLET (VIT D3) PO SCH (08:09)
[2022-04-02] MEDS: VALSARTAN 80 MG TABLET PO SCH (08:11)
[2022-04-02] MEDS: Z GUARD REMEDY 4 OZ OINT TP SCH (08:17)
--- NOTE | 2022-04-02 09:35 | NUR ---
WOUND CARE CONSULT: PT PRESENTS WITH INTACT PURPLE DISCOLORATION TO PRESACRAL AREA. NO DRAINAGE OR ERYTHEMA NOTED. RECOMMENDATIONS MADE FOR SKIN PROTECTION. DISCUSSED WITH NURSING STAFF. PT NOTED TO BE CURSING AND YELLING WHEN TOUCHED. PT FOLLOWED BY PODIATRY FOR TOE WOUND WHICH IS DRY. FIRST STEP LOW AIRLOSS MATTRESS ORDERED. DISCUSSED WITH NURSING STAFF AND HEEL CEMENTER MACHINE. MD IN AGREEMENT WITH PLAN OF CARE. Addendum: 04/02/22 at 0941 by CONSUELO ADAMSON WNDNU Amended: Links added.
[2022-04-02] MEDS ORDERED: HYDR-3980 PO (14:14)
[2022-04-02 16:37] VITALS: BP 130/63
--- NOTE | 2022-04-02 18:34 | NUR ---
CHANGE OF SHIFT REPORT PT RESTING COMFORTABLY IN BED. NO S/S OR C/O PAIN OR DISTRESS NOTED. SIDE RAILS UP X2, CALL LIGHT LEFT WITHIN REACH. PT KEPT CLEAN, DRY, AND COMFORTABLE. NO SIGNIFICANT CHANGES SINCE PREVIOUS SHIFT. WILL GIVE REPORT TO OSCAR BEYER.
--- NOTE | 2022-04-02 19:15 | NUR ---
TRANSFER REPORT ATTEMPTED NO ANSWER FROM [facility] [phone] & [phone]
--- NOTE | 2022-04-02 19:15 | NUR ---
RN OPENING NOTE PATIENT AWAKE IN BED. A/OX3. NO S/S OF DISTRESS, BREATHING W/O DIFFICULTY ON 2L NC. RFA #20 INTACT AND PATENT W/ D5-1/2NS W/ 20MEQKCL @75ML/HR. SAFETY MEASURES IN PLACE: BED AT LOWEST POSITION, LOCKED, RAILS UP X2, CALL GONSALEZ WITHIN REACH. WILL CONTINUE TO MONITOR PATIENT.
--- NOTE | 2022-04-02 20:30 | NUR ---
RN NOTE DAY RN, GRACIELA, ENDORSED TO THIS RN THAT [facility] HAD NOT ANSWERED THE CALLS HE HAD MADE THROUGHOUT THE DAY TO GIVE REPORT. I HAD CALLED BOTH [phone] & [phone] @ 1921 & 2024 - STILL NO RESPONSE - PHONE JUST RINGS. CHARGE NURSE, SYED, NOTIFIED OF THE ISSUE. AMBULANCE TRANSPORTATION WAS DUE AT 1999, BUT THAT TOO HAS YET TO OCCUR NO AMBULANCE HAS ARRIVED FOR PATIENT TRANSFER.
--- NOTE | 2022-04-02 21:07 | NUR ---
RN NOTE manufacturing recruiter EVENTUALLY ARRIVED ~@2100. WHILE THEY WERE HERE [facility] FINALLY DECIDED IT WAS BEST TO CALL OUR UNIT EVEN THOUGH WE HAD REACHED OUT TO THEM SEVERAL TIMES THROUGHOUT DAY AND AGING DEPARTMENT SUPERVISOR (RN AND CHARGE NURSE). SPOKE W/ LUPE NURSE, @2115; GAVE REPORT. PATIENT WAS STILL AGITATED WHEN manufacturing recruiter WERE PRESENT. BP WAS ELEVATED AT 160/90. PATIENT COMPLAINED OF PAIN. MORPHINE ADMINISTERED. manufacturing recruiter WERE KIND ENOUGH TO WAIT TO ENSURE PATIENT STABILITY. AFTER 45 MINIUTES PATIENT'S VS DECREASED TO 150/68, HR 80, 02 100% W/ NC 2L. PATIENT WAS STABLE TO TRANSFER. PATIENT'S BELONGINGS WERE ACCOUNTED FOR BY CECY JACKSON, LOGGED IN SHEET AND PLACED IN CHART. EMT LORI WAS GIVEN REPORT AT BEDSIDE. IV WAS REMOVED SUCCESSFULLY WITH CATH INTACT. NICOLE LEFT IN PLACE DSICUSSED W/ LUPE. NAME BAND REMOVED AND DISPOSED OF PROPERLY PER HIPAA RULES. PATIENT VS STABLE, AND WAS TRANSPORTED SUCCESSFULLY. PATIENT A/OX3. NO S/S OF DISTRESS, BREATHING WELL W/ NC 2L.
== END 2022-04-02 22:00 | DRG 907 ==
LOC: ER 18:10 → TRANSITION 22:58 → TELE 03-29 16:41 → MED 04-01 06:55
PROVIDERS: ADMIT Nurse Practitioner Acute Care; ATTEND Student in an Organized Health Care Education/Training Program
PROC: 0SRR0JA Replacement of Right Hip Joint, Femoral Surface with Synthetic Substitute, Uncemented, Open Approach (ICD-10-PCS; principal; 2022-03-30)
DX: T43.621A Poisoning by amphetamines, accidental (unintentional), initial encounter (principal); I21.A1 Myocardial infarction type 2; S72.001A Fracture of unspecified part of neck of right femur, initial encounter for closed fracture; I69.354 Hemiplegia and hemiparesis following cerebral infarction affecting left non-dominant side; I50.32 Chronic diastolic (congestive) heart failure; F03.91 Unspecified dementia, unspecified severity, with behavioral disturbance; I11.0 Hypertensive heart disease with heart failure; E11.9 Type 2 diabetes mellitus without complications; E78.5 Hyperlipidemia, unspecified; F32.9 Major depressive disorder, single episode, unspecified; F43.10 Post-traumatic stress disorder, unspecified; I25.10 Atherosclerotic heart disease of native coronary artery without angina pectoris; M20.41 Other hammer toe(s) (acquired), right foot; M20.42 Other hammer toe(s) (acquired), left foot; Z20.822 Contact with and (suspected) exposure to COVID-19; R62.7 Adult failure to thrive; F10.10 Alcohol abuse, uncomplicated; Z95.5 Presence of coronary angioplasty implant and graft; F19.10 Other psychoactive substance abuse, uncomplicated; Z71.6 Tobacco abuse counseling; W19.XXXA Unspecified fall, initial encounter; Y93.9 Activity, unspecified; Y92.230 Patient room in hospital as the place of occurrence of the external cause; L89.892 Pressure ulcer of other site, stage 2; D64.9 Anemia, unspecified; Z68.22 Body mass index [BMI] 22.0-22.9, adult
CPT/HCPCS: 36415; 70450-TC; 71045-TC; 73501; 80048-TC; 80053-TC; 80076-TC; 82962-TC; 83735-TC; 83880; 84100-TC; 84484-TC; 85025-TC; 85610-TC; 85730-TC; 86850-TC; 87081-TC; 88305-TC; 88311-TC; 97110-TC; 97530-TC; A4217; A6209; A6253; C1776; C9803; G0378; G0480; J0690; J1100; J1170; J1885; J2060; J2270; J2405; J2704; J3370; J3490; J7030; J7060